=== PATIENT | male | born 1950 | race African-American/Black ===

== ENCOUNTER 2017-06-11 19:54 | Inpatient (IN) | payer MEDICAID, OTHER ==
[2017-06-11] MEDS ORDERED: ZOLPIDEM TARTRATE 5 MG TABLET PO ONE (21:16)
--- NOTE | 2017-06-11 22:51 | ER Document Report ---
ED Psych Disorder / Suicide - General Chief Complaint: Psych Problem Stated Complaint: OSMANY ROBLERO Time Seen by Provider: 06/11/17 20:56 Notes: Patient with a history of schizophrenia who was just here for a couple of days and discharge this afternoon. Family brings him back saying that he is a danger to them and himself. He will not take his medicines. He is combative and will not do what he supposed to do. This afternoon, they found him sitting in the bathtub with water and an electric heater also, patient is confused at times and will go wandering, out in the street and away from his house. Historically, this patient walked away from his house when he was 21 years of age and the family did not hear from him again until just 2 years ago. He was moved here from [place] and now lives with his sister. He is a patient at [facility], last visit was earlier this month. Patient's family is concerned that he may also be developing Alzheimer's. TRAVEL OUTSIDE OF THE [place] IN LAST 30 DAYS: No - Related Data Allergies/Adverse Reactions: No Known Allergies Allergy (Unverified 06/09/17 04:49) Past Medical History - Social History Smoking Status: Current Every Day Smoker Family History: Reviewed & Not Pertinent Patient has suicidal ideation: No Patient has homicidal ideation: No Psychiatric Medical History: Reports: Hx Schizophrenia Review of Systems - Review of Systems Notes: REVIEW OF SYSTEMS: Some answers provided by sister. CONSTITUTIONAL : Denies fever. EENT: Denies eye, ear, nose or mouth or throat pain or other symptoms. CARDIOVASCULAR: Denies chest pain. RESPIRATORY: Denies cough, chest congestion, or shortness of breath. GASTROINTESTINAL: Denies abdominal pain or nausea, vomiting, or diarrhea. GENITOURINARY: Denies difficulty or painful urinating, urinary frequency, blood in urine. MUSCULOSKELETAL: Denies back or neck pain. Denies joint pain or swelling. Patient fell off of a stool in his room here as he was being brought back to get into bed. He has no tenderness or swelling or any indications of a significant injury to the back and buttocks. Moves easily around in bed. SKIN: Denies rash or skin lesions. NEUROLOGICAL: Denies LOC or altered mental status. Denies headache. Denies sensory loss or motor deficits. ALL OTHER SYSTEMS REVIEWED AND NEGATIVE. -: Yes ROS unobtainable due to patient's medical condition Physical Exam - Vital signs Vitals: Temp Pulse Resp BP Pulse Ox 97.9 F 73 18 107/64 99 06/11/17 20:12 06/11/17 20:12 06/11/17 20:12 06/11/17 20:12 06/11/17 20:12 Interpretation: Normal - Notes Notes: PHYSICAL EXAMINATION: GENERAL: Well-appearing, in no acute distress. Vital signs are all normal. HEAD: Atraumatic, normocephalic. EYES: Pupils equal round and reactive to light, extraocular movements intact. ENT: oropharynx clear without exudates. Moist mucous membranes. NECK: Normal range of motion, supple. LUNGS: Breath sounds clear and equal bilaterally. HEART: Regular rate and rhythm without murmurs. ABDOMEN: Soft, nontender. No guarding or rebound. BACK: No tenderness throughout entire back. EXTREMITIES: Normal range of motion without pain. NEUROLOGICAL: normal gait. Normal sensory, motor, and reflex exams. Awake, alert, I do not think patient is oriented 3. Follows commands. Cooperative. Difficult to understand his speech, however. PSYCH: Normal mood, normal affect. SKIN: Warm, dry, no rashes. Course - Re-evaluation Re-evalutation: 06/11/17 22:54 Family says they cannot take care of this patient. I note in looking through the patient's chart that we wanted to get discharge planning involved in resources available to this patient, but apparently discharge planning was not available when the patient was discharged this afternoon. We are going to bed him down for the night and let mental health evaluate him in the morning to see if a reassessment and alternative new plan is necessary. 06/11/17 22:56 Labs were not redone because the patient had all of them done just 2 days ago and everything was essentially normal at that time. - Vital Signs Vital signs: Temp Pulse Resp BP Pulse Ox 97.9 F 73 18 107/64 99 06/11/17 20:12 06/11/17 20:12 06/11/17 20:12 06/11/17 20:12 06/11/17 20:12
[2017-06-12] MEDS ORDERED: TUBERCULIN,PURIF.PROT.DERIV. 5 TU/0.1 ML TEST 1 ML VIAL ID ONE (11:40)
[2017-06-12] MEDS: BUSPIRONE HCL 10 MG TABLET PO SCH ×2 (11:47→22:59)
--- NOTE | 2017-06-12 11:52 | ER Document Report ---
Doctor's Note Notes: 06/12/17 11:51 Patient has been seen and evaluated resting comfortably no acute distress. Laboratory values previous provider note and vital signs have been evaluated. Patient otherwise looks to be stable for disposition/transfer. Currently waiting for social work disposition. Patient otherwise has no concerns this morning and did review the chart last laboratory values were done approximately 72-96 hours ago we did restart patient's medication if patient still has more possibility checking out basic lab work and to obtain a Depakote level. A PPD was ordered.
[2017-06-12] MEDS ORDERED: DIVALPROEX SODIUM 125 MG CAP.SPRINK PO ONE (13:45)
--- NOTE | 2017-06-13 08:53 | ER Document Report ---
ED General - General Chief Complaint: Psych Problem Stated Complaint: OSMANY ROBLERO Time Seen by Provider: 06/11/17 20:56 TRAVEL OUTSIDE OF THE [place] IN LAST 30 DAYS: No - Related Data Allergies/Adverse Reactions: No Known Allergies Allergy (Unverified 06/09/17 04:49) Home Medications: Current Home Medications Buspirone HCl [Buspar 10 mg Tablet] 10 mg PO QHS 06/12/17 [History] Buspirone HCl [Buspar 5 mg Tablet] 5 mg PO QAM 06/12/17 [History] Divalproex Sodium [Depakote Sprinkle] 500 mg PO BID 06/12/17 [History] Past Medical History - Social History Smoking Status: Current Every Day Smoker Family History: Reviewed & Not Pertinent Patient has suicidal ideation: No Patient has homicidal ideation: No Renal/ Medical History: Denies: Hx Peritoneal Dialysis Psychiatric Medical History: Reports: Hx Schizophrenia Physical Exam - Vital signs Vitals: Temp Pulse Resp BP Pulse Ox 97.9 F 73 18 107/64 99 06/11/17 20:12 06/11/17 20:12 06/11/17 20:12 06/11/17 20:12 06/11/17 20:12 Course - Re-evaluation Re-evalutation: 06/13/17 08:53 Saw patient in morning rounds for psychiatric patients. Pending psych disposition. No overnight events. No nursing requests or urgent needs. On exam the patient is resting comfortably with no issues. - Vital Signs Vital signs: Temp Pulse Resp BP Pulse Ox 97.4 F 71 18 138/96 H 98 06/13/17 05:53 06/13/17 05:53 06/13/17 05:53 06/13/17 05:53 06/13/17 05:53
[2017-06-13] MEDS: BUSPIRONE HCL 10 MG TABLET PO SCH ×2 (09:57→22:00)
[2017-06-14] MEDS: BUSPIRONE HCL 10 MG TABLET PO SCH ×2 (08:00→21:33)
[2017-06-14] MEDS: DIVALPROEX SODIUM 125 MG CAP.SPRINK PO SCH ×2 (10:00→18:00)
--- NOTE | 2017-06-14 10:47 | ER Document Report ---
Doctor's Note Notes: 06/14/17 10:46 Social Rounds: Patient does not respond when I asked him a question. Awaiting long-term placement. Vital signs are normal. Appears to be stable. Azam Hamilton MD 06/14/17 10:48
[2017-06-15] MEDS: BUSPIRONE HCL 10 MG TABLET PO SCH ×2 (08:48→22:32)
--- NOTE | 2017-06-15 10:17 | ER Document Report ---
Doctor's Note Notes: 06/15/17 10:16 Rounds: Checking on this social admission for whom we are awaiting placement somewhere. Patient is without complaints. He is relatively uncommunicative. He has a PPD which was placed on his right forearm 3 days ago which is likely positive at about 15 mm. I will check and see if he needs a chest x-ray and order one if it has not been done recently. Vital signs are all normal. Patient appears medically stable for transfer or discharge. Azam Hamilton MD. 06/15/17 12:30 Chest x-ray was obtained and shows an incidental small lung nodule for which patient will be advised needs to be followed up. No acute processes and no evidence of tuberculosis. Azam Hamilton MD
--- NOTE | 2017-06-15 10:59 | RADIOLOGY REPORT (SQ) ---
EXAM DESCRIPTION: CHEST PA/LAT COMPLETED DATE/TIME: 06/15/2017 10:50 am REASON FOR STUDY: Positive PPD COMPARISON: None. EXAM PARAMETERS: NUMBER OF VIEWS: two views TECHNIQUE: Digital Frontal and Lateral radiographic views of the chest acquired. RADIATION DOSE: NA LIMITATIONS: Frontal film is slightly rotated towards the LINK orientation FINDINGS: LUNGS AND PLEURA: On the lateral view at the anterior clear space a 10 mm nodule is projec mary over the anterior heart border. This could be in the right middle lobe or lingula. No acute infiltrates. No pleural effusion. No pneumothorax. MEDIASTINUM AND HILAR STRUCTURES: No masses or contour abnormalities. HEART AND VASCULAR STRUCTURES: Heart normal size. No evidence for failure. BONES: No acute findings. HARDWARE: None in the chest. OTHER: No other significant finding. IMPRESSION: Incidental finding of a 10 mm nodule in the anterior clear space on lateral view No acute infiltrates. TECHNICAL DOCUMENTATION: JOB ID: [id number] [employer]- All Rights Reserved
[2017-06-15] MEDS: DIVALPROEX SODIUM 125 MG CAP.SPRINK PO SCH ×2 (11:15→18:54)
--- NOTE | 2017-06-16 09:30 | ER Document Report ---
ED General - General Chief Complaint: Psych Problem Stated Complaint: OSMANY ROBLERO Time Seen by Provider: 06/11/17 20:56 Notes: Patient still waiting on placement for long-term dementia/schizophrenia. By report from sister who is at the bedside he has not been taking his medications here. She is worried that he is dehydrated. She wants to know the results of the TB test. Wants to know what is going on. Patient is awake and alert. At his baseline mental status and not complaining of anything at this time. Follows basic commands. TRAVEL OUTSIDE OF THE [place] IN LAST 30 DAYS: No - Related Data Allergies/Adverse Reactions: No Known Allergies Allergy (Unverified 06/09/17 04:49) Home Medications: Current Home Medications Buspirone HCl [Buspar 10 mg Tablet] 10 mg PO QHS 06/12/17 [History] Buspirone HCl [Buspar 5 mg Tablet] 5 mg PO QAM 06/12/17 [History] Divalproex Sodium [Depakote Sprinkle] 500 mg PO BID 06/12/17 [History] Past Medical History - General Information source: Relative - Social History Smoking Status: Current Every Day Smoker Frequency of alcohol use: None Family History: Reviewed & Not Pertinent Patient has suicidal ideation: No Patient has homicidal ideation: No Renal/ Medical History: Denies: Hx Peritoneal Dialysis Psychiatric Medical History: Reports: Hx Schizophrenia Review of Systems - Review of Systems -: Yes ROS unobtainable due to patient's medical condition - Due to patient's dementia Physical Exam - Vital signs Vitals: Temp Pulse Resp BP Pulse Ox 97.9 F 73 18 107/64 99 06/11/17 20:12 06/11/17 20:12 06/11/17 20:12 06/11/17 20:12 06/11/17 20:12 - General General appearance: Alert - Respiratory Respiratory status: No respiratory distress Chest status: Nontender Breath sounds: Normal - Cardiovascular Rhythm: Regular Heart sounds: Normal auscultation - Extremities General upper extremity: Other - The right forearm demonstrates a positive TB test.. No: Normal inspection - Neurological Neuro grossly intact: Yes Orientation: Disoriented to person, Disoriented to place, Disoriented to time, Disoriented to events William Coma Scale Eye Opening: Spontaneous - Skin Skin Temperature: Warm - There is a positive TB test on the right upper extremity Course - Re-evaluation Re-evalutation: 06/16/17 09:29 With positive TB test. Has been down in the emergency department now here for several days. Chest x-ray ordered. Patient may meet criteria at this time for inpatient admission for further testing and beginning of treatment. 06/16/17 09:37 Chest x-ray shows an abnormality. Patient needs to be started on treatment. There is no way this patient is going to leave the ER to a prison without all of these needs met. It does not seem appropriate at all to keep him in the emergency department with multitude of internal medicine needs. I have consulted the hospitalist for admission at this time. Patient needs to be I. And a reverse isolation room until treatment started. II. Patient needs to be hydrated and monitored at this time. III. Patient needs to be started on injectable schizophrenic medications as he is refusing to take oral medications and this has not been done. If all these needs can be met it will be medicine and patient not in the ER. 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
[2017-06-16] MEDS: BUSPIRONE HCL 10 MG TABLET PO SCH ×2 (12:03→23:35)
[2017-06-16] MEDS ORDERED: ENOXAPARIN SODIUM INJ 40 MG/0.4 ML DISP.SYRIN SUBCUT ONE (14:30)
--- NOTE | 2017-06-16 16:08 | PDOC H&P ---
History of Present Illness Admission Date/PCP: 06/16/17 11:14 Patient complains of: Patient brought in for altered mental status or medications noncompliance. History of Present Illness: SUZANNE PECK is a 66 year old male with history of dementia and schizophrenia. Patient with recurrent presentation to the ED after he was brought in by the family for medications noncompliance. Family reported that patient has been combative and not doing what he was supposed to do. Patient confused at times. On the afternoon of current presentation to the ED, 06/11/17, they found him sitting in the bathtub with the water and electric heater. Patient has been in the ED since 06/11/17 waiting for placement. He apparently had PPD done and this was positive. Chest x-ray on 06/15/17 revealed 10 mm in the anterior clear space laterally. Otherwise no acute infiltrate. Urinalysis from 07/10/[address] scan of the head was negative. Patient does continue to refuse to take meds. He has been referred to the hospitalist service for admission to isolation for workup for TB and adjust patient medications for altered mental status. On exam patient, he barely answers questions. He is a poor historian. History obtained from review of medical records and discussion with ED physician. He reports intermittent cough. Past Medical History Neurological Medical History: Reports: Other - Dementia Psychiatric Medical History: Reports: Other - Schizophrenia Social History Smoking Status: Former Smoker Family History Family History: unknown Parental Family History Reviewed: Yes - Unknown Children Family History Reviewed: Unknown Sibling(s) Family History Reviewed.: Unknown Medication/Allergy Home Medications: Buspirone HCl [Buspar 10 mg Tablet] 10 mg PO QHS 06/12/17 Buspirone HCl [Buspar 5 mg Tablet] 5 mg PO QAM 06/12/17 Divalproex Sodium [Depakote Sprinkle] 500 mg PO BID 06/12/17 Allergies/Adverse Reactions: No Known Allergies Allergy (Unverified 06/09/17 04:49) Review of Systems Review of Systems: Denies fever, chills, chest pain, palpitations. Has intermittent cough. Does not always answer questions, so review of system difficult to obtain fully. Physical Exam Vital Signs: Temp Pulse Resp BP Pulse Ox 97.8 F 86 16 116/84 99 06/16/17 13:53 06/16/17 13:53 06/16/17 13:53 06/16/17 13:53 06/16/17 13:53 Exam: GENERAL: Well-developed, in no acute distress. . HEAD: Atraumatic, normocephalic. Oral mucosa clear, mildly dry. No exudate. EYES: Pupils equal round and reactive to light, extraocular movements intact. NECK: Normal range of motion, supple. LUNGS: Breath sounds clear and equal bilaterally. HEART: Regular rate and rhythm without murmurs. ABDOMEN: Soft, nontender. No guarding or rebound. BACK: No tenderness throughout entire back. EXTREMITIES: Normal range of motion without pain. NEUROLOGICAL: normal gait. Normal sensory, motor, and reflex exams. Awake, alert, seems oriented to name only. Follows simple commands. However, difficult to understand his speech, however. PSYCH: Some flattening of affect. SKIN: Warm, dry, no rashes. Results Laboratory Results: CBC from 06/09/17 revealed normal white blood cells 5.5 hemoglobin 13.7 hematocrit 40.7, platelets 193.Zamzam chemistry with slight hyponatremia with sodium 147.2. BUN 15 creatinine 1.32. Impressions: Chest X-Ray 06/15/17 10:19 IMPRESSION: Incidental finding of a 10 mm nodule in the anterior clear space on lateral view No acute infiltrates. Assessment & Plan - Diagnosis (1) Altered mental state Qualifiers: Altered mental status type: unspecified Qualified Code(s): R41.82 - Altered mental status, unspecified Is this a current diagnosis for this admission?: Yes Plan: May be secondary to dementia and/or schizophrenia in the setting of medications noncompliance. Urinalysis 06/09/17 unremarkable. Chest x-ray from 06/15/17 shows no acute infiltrate although pulmonary nodule present. Concern is also that patient may have TB. He appears thin but difficult to obtain history of weight loss. Will workup for TB and have psych evaluate for possible treatment with long-acting injectable psych medications. (2) Tuberculin skin test (TST) positive Is this a current diagnosis for this admission?: Yes Plan: We will check a QuantiFERON level as part of workup for possible active TB. Will also obtain chest CT to better evaluate pulmonary nodule. (3) Abnormal chest x-ray Is this a current diagnosis for this admission?: Yes Plan: Admitted to isolation room. Workup for active TB (4) Dementia Qualifiers: Dementia type: unspecified type Dementia behavioral disturbance: with behavioral disturbance Qualified Code(s): F03.91 - Unspecified dementia with behavioral disturbance Is this a current diagnosis for this admission?: Yes Plan: Check vitamin B12, TSH to rule out reversible causes of dementia. Monitor. (5) Schizophrenia Qualifiers: Schizophrenia type: unspecified Qualified Code(s): F20.9 - Schizophrenia, unspecified Plan: Patient reveals him to take his medications orally. Will request psych to evaluate for possible treatment with long-acting injectable psych medications. - Time Time Spent: Greater than 70 Minutes - Greater than 50% counseling and coordinating care. - Inpatient Certification Based on my medical assessment, after consideration of the patient's comorbidities, presenting symptoms, or acuity I expect that the services needed warrant INPATIENT care.: Yes I certify that my determination is in accordance with my understanding of Medicare's requirements for reasonable and necessary INPATIENT services [42 CFR 412.3e].: Yes Medical Necessity: Significant Comorbidiites Make Outpatient Treatment Too Risky
[2017-06-16] MEDS: GUAIFENESIN SYRP 200 MG/10 ML UDC PO SCH (23:59)
[2017-06-16] MEDS: DIVALPROEX SODIUM 125 MG CAP.SPRINK PO SCH (23:59)
[2017-06-17] MEDS: ALBUTEROL SULFATE 0.083% NEB 2.5 MG/3 ML AMPUL NEB PRN ×3 (00:31→20:23)
[2017-06-17] MEDS: GUAIFENESIN SYRP 200 MG/10 ML UDC PO SCH ×5 (05:38→21:48)
[2017-06-17] MEDS ORDERED: (PENDING PHARMACY ID) (Buspirone Hcl [Buspar 5 Mg Tablet] 5 MG) PO SCH (08:00)
[2017-06-17] MEDS: ACETYLCYSTEINE 20% SOLN 800 MG/4 ML VIAL.NEB NEB SCH ×2 (08:54→20:38)
[2017-06-17] MEDS: DIVALPROEX SODIUM 125 MG CAP.SPRINK PO SCH ×2 (10:03→21:48)
[2017-06-17] MEDS: ENOXAPARIN SODIUM INJ 40 MG/0.4 ML DISP.SYRIN SUBCUT SCH (10:03)
[2017-06-17] MEDS: BUSPIRONE HCL 10 MG TABLET PO SCH ×2 (10:03→21:48)
[2017-06-17 11:47] LABS: ABSOLUTE EOSINOPHILS # (AUTO) 0.1 10^3/uL (0.0-0.6); ABSOLUTE LYMPHOCYTES (AUTO) 1.1 10^3/uL (0.5-4.7); ABSOLUTE MONOCYTES (AUTO) 0.5 10^3/uL (0.1-1.4); ABSOLUTE NEUT (AUTO) 2.9 10^3/uL (1.7-8.2); EOSINOPHILS % (AUTO) 1.9 % (0-6); HEMATOCRIT 43.3 % (37.9-51.0); HEMOGLOBIN 14.5 g/dL (13.5-17.0); HGB HCT DIFFERENCE 0.2; MEAN CORPUSCULAR HEMOGLOBIN 31.8 pg (27.0-33.4); MEAN CORPUSCULAR HGB CONC 33.5 g/dL (32.0-36.0); MEAN CORPUSCULAR VOLUME 95 fl (80-97); MONOCYTES % (AUTO) 10.5 % (3-13); RED BLOOD COUNT 4.56 10^6/uL (4.35-5.55); RED CELL DISTRIBUTION WIDTH 12.7 % (11.5-14.0); SEGMENTED NEUTROPHILS % (AUTO) 62.6 % (42-78); WHITE BLOOD COUNT 4.6 10^3/uL (4.0-10.5)
[2017-06-17 12:20] LABS: ALANINE AMINOTRANSFERASE 25 U/L (21-72); ALBUMIN 4.4 g/dL (3.5-5.0); ALKALINE PHOSPHATASE 72 U/L (38-126); ANION GAP 16 (5-19); ASPARTATE AMINO TRANSFERASE 13 U/L (17-59); BILIRUBIN,DIRECT 0.5 mg/dL (0.0-0.4); BILIRUBIN,TOTAL 0.6 mg/dL (0.2-1.3); BLOOD UREA NITROGEN 23 mg/dL (7-20); CALCIUM 10.6 mg/dL (8.4-10.2); CARBON DIOXIDE 29 mmol/L (22-30); CHLORIDE 103 mmol/L (98-107); CREATININE RESULT 1.43 mg/dL (0.52-1.25); GLUCOSE 103 mg/dL (75-110); POTASSIUM 4.2 mmol/L (3.6-5.0)
--- NOTE | 2017-06-17 17:55 | PDOC PROGRESS REPORT ---
Subjective Progress Note for:: 06/17/17 Subjective:: No complaints. No compliant with medications today. No fever or chills, no chest pain or shortness of breath or palpitations. Physical Exam Vital Signs: Temp Pulse Resp BP Pulse Ox 97.9 F 83 18 101/60 100 06/17/17 17:26 06/17/17 17:26 06/17/17 17:26 06/17/17 17:26 06/17/17 17:26 Intake & Output 06/16/17 06/17/17 06/18/17 06:59 06:59 06:59 Intake Total 523 100 Output Total 0 Balance 523 100 Weight 44 kg Exam: GENERAL: Thin male, no acute distress CARDIOVASCULAR: RRR, normal S1-S2 LUNGS: CTA bilaterally ABDOMEN: Soft, NT, NL bowel sounds EXTREMITIES: No edema, clubbing, cyanosis NEUROLOGICAL: Alert Results Laboratory Results: 06/17/17 11:18 06/17/17 11:18 06/17/17 06/17/17 06/17/17 11:18 11:18 11:18 WBC 4.6 RBC 4.56 Hgb 14.5 Hct 43.3 MCV 95 MCH 31.8 MCHC 33.5 RDW 12.7 Plt Count 193 Seg Neutrophils % 62.6 Lymphocytes % 24.0 Monocytes % 10.5 Eosinophils % 1.9 Basophils % 1.0 Absolute Neutrophils 2.9 Absolute Lymphocytes 1.1 Absolute Monocytes 0.5 Absolute Eosinophils 0.1 Absolute Basophils 0.0 Sodium 148.0 H Potassium 4.2 Chloride 103 Carbon Dioxide 29 Anion Gap 16 BUN 23 H Creatinine 1.43 H Est GFR ( Amer) > 60 Est GFR (Non-Af Amer) 50 L Glucose 103 Calcium 10.6 H Total Bilirubin 0.6 AST 13 L ALT 25 Alkaline Phosphatase 72 Ammonia < 8.7 L Total Protein 7.0 Albumin 4.4 Vitamin B12 818.0 TSH 06/17/17 11:18 WBC RBC Hgb Hct MCV MCH MCHC RDW Plt Count Seg Neutrophils % Lymphocytes % Monocytes % Eosinophils % Basophils % Absolute Neutrophils Absolute Lymphocytes Absolute Monocytes Absolute Eosinophils Absolute Basophils Sodium Potassium Chloride Carbon Dioxide Anion Gap BUN Creatinine Est GFR ( Amer) Est GFR (Non-Af Amer) Glucose Calcium Total Bilirubin AST ALT Alkaline Phosphatase Ammonia Total Protein Albumin Vitamin B12 TSH 0.32 L Impressions: Chest X-Ray 06/15/17 10:19 IMPRESSION: Incidental finding of a 10 mm nodule in the anterior clear space on lateral view No acute infiltrates. Assessment & Plan - Diagnosis (1) Altered mental state Qualifiers: Altered mental status type: unspecified Qualified Code(s): R41.82 - Altered mental status, unspecified Is this a current diagnosis for this admission?: Yes Plan: May be secondary to dementia and/or schizophrenia in the setting of medications noncompliance. Urinalysis 06/09/17 unremarkable. Chest x-ray from 06/15/17 shows no acute infiltrate although pulmonary nodule present. Concern is also that patient may have TB. He appears thin but difficult to obtain history of weight loss. Will workup for TB in progress. Patient more compounded medication today. Suggest having psych evaluate for possible treatment with long-acting injectable psych medications if any problems with noncompliance with psych meds.. 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 Creatinine slightly was from baseline today. Will hydrate with gentle IV fluid. Recheck Chem-7 in a.m. If creatinine better suggest ordering chest CT with contrast to better evaluate pulmonary nodule. (3) Abnormal chest x-ray Is this a current diagnosis for this admission?: Yes Plan: Admitted to isolation room. Workup for active TB as above. (4) Dementia Qualifiers: Dementia type: unspecified type Dementia behavioral disturbance: with behavioral disturbance Qualified Code(s): F03.91 - Unspecified dementia with behavioral disturbance Is this a current diagnosis for this admission?: Yes Plan: Vitamin B12 murmur, TSH decreased. We will check free T4 and free T3. Continue to monitor patient. (5) Schizophrenia Qualifiers: Schizophrenia type: unspecified Qualified Code(s): F20.9 - Schizophrenia, unspecified Plan: Patient was not compliant with oral medication. He has been more compliant today. Suggest psych evaluation for possible treatment with long-acting injectable psych medications if continued problems with patient refusing to take his medications. (6) Dehydration Plan: Suspect dehydration. Patient has not been eating and drinking much. He also has slight hyponatremia and slight worsening renal function. Will treat with D5 i/2 normal saline at 100 mL/h. Follow-up CBC and Chem-7 in a.m.
[2017-06-17] MEDS ORDERED: DEXTROSE 5%-1/2 NORMAL SALINE 1,000 ML IV PRN (18:00)
[2017-06-17 19:53] LABS: ABSOLUTE EOSINOPHILS # (AUTO) 0.1 10^3/uL (0.0-0.6); ABSOLUTE LYMPHOCYTES (AUTO) 1.3 10^3/uL (0.5-4.7); ABSOLUTE MONOCYTES (AUTO) 0.4 10^3/uL (0.1-1.4); ABSOLUTE NEUT (AUTO) 3.4 10^3/uL (1.7-8.2); BASOPHILS % (AUTO) 0.9 % (0-2); EOSINOPHILS % (AUTO) 1.3 % (0-6); HEMATOCRIT 45.3 % (37.9-51.0); HEMOGLOBIN 15.3 g/dL (13.5-17.0); HGB HCT DIFFERENCE 0.6; LYMPHOCYTES % (AUTO) 24.2 % (13-45); MEAN CORPUSCULAR HEMOGLOBIN 31.9 pg (27.0-33.4); MEAN CORPUSCULAR HGB CONC 33.7 g/dL (32.0-36.0); MEAN CORPUSCULAR VOLUME 95 fl (80-97); MONOCYTES % (AUTO) 8.2 % (3-13); RED BLOOD COUNT 4.79 10^6/uL (4.35-5.55); RED CELL DISTRIBUTION WIDTH 12.6 % (11.5-14.0); SEGMENTED NEUTROPHILS % (AUTO) 65.4 % (42-78); WHITE BLOOD COUNT 5.2 10^3/uL (4.0-10.5)
[2017-06-17 20:10] LABS: ANION GAP 18 (5-19); BLOOD UREA NITROGEN 24 mg/dL (7-20); CARBON DIOXIDE 28 mmol/L (22-30); CHLORIDE 103 mmol/L (98-107); CREATININE RESULT 1.45 mg/dL (0.52-1.25); GLUCOSE 100 mg/dL (75-110); POTASSIUM 4.6 mmol/L (3.6-5.0); SODIUM 148.9 mmol/L (137-145)
[2017-06-18] MEDS: GUAIFENESIN SYRP 200 MG/10 ML UDC PO SCH ×6 (02:32→22:38)
[2017-06-18] MEDS ORDERED: NORMAL SALINE 1000 ML 1,000 ML IV PRN (08:05)
[2017-06-18] MEDS: ACETYLCYSTEINE 20% SOLN 800 MG/4 ML VIAL.NEB NEB SCH ×2 (08:12→20:19)
[2017-06-18] MEDS: ALBUTEROL SULFATE 0.083% NEB 2.5 MG/3 ML AMPUL NEB PRN ×2 (08:12→20:19)
[2017-06-18] MEDS: ENOXAPARIN SODIUM INJ 40 MG/0.4 ML DISP.SYRIN SUBCUT SCH (11:21)
[2017-06-18] MEDS: BUSPIRONE HCL 10 MG TABLET PO SCH (11:21)
[2017-06-18] MEDS: DIVALPROEX SODIUM 125 MG CAP.SPRINK PO SCH (11:21)
[2017-06-18] MEDS ORDERED: HALOPERIDOL 5 MG TABLET PO PRN (13:01)
--- NOTE | 2017-06-18 13:01 | PDOC PROGRESS REPORT ---
Subjective Progress Note for:: 06/18/17 Physical Exam Vital Signs: Temp Pulse Resp BP Pulse Ox 97.4 F 85 20 103/77 100 06/18/17 07:56 06/18/17 08:15 06/18/17 08:15 06/18/17 07:56 06/18/17 08:15 Intake & Output 06/17/17 06/18/17 06/19/17 06:59 06:59 06:59 Intake Total 523 250 Output Total 0 Balance 523 250 Weight 44 kg 42.8 kg General appearance: PRESENT: no acute distress Eye exam: PRESENT: conjunctiva pink. ABSENT: scleral icterus Mouth exam: PRESENT: moist, tongue midline Neck exam: ABSENT: JVD Respiratory exam: PRESENT: clear to auscultation veronica. ABSENT: rales, rhonchi, wheezes Cardiovascular exam: PRESENT: RRR. ABSENT: diastolic murmur, rubs, systolic murmur GI/Abdominal exam: PRESENT: normal bowel sounds, soft. ABSENT: distended, guarding, mass, organolmegaly, rebound, tenderness Extremities exam: ABSENT: calf tenderness, clubbing, pedal edema Neurological exam: PRESENT: altered, CN II-XII grossly intact. ABSENT: motor sensory deficit Psychiatric exam: PRESENT: flat affect Skin exam: PRESENT: dry, intact, warm. ABSENT: cyanosis, rash Results Laboratory Results: 06/17/17 19:30 06/17/17 19:30 06/17/17 06/17/17 06/17/17 11:18 19:30 19:30 WBC 5.2 RBC 4.79 Hgb 15.3 Hct 45.3 MCV 95 MCH 31.9 MCHC 33.7 RDW 12.6 Plt Count 200 Seg Neutrophils % 65.4 Lymphocytes % 24.2 Monocytes % 8.2 Eosinophils % 1.3 Basophils % 0.9 Absolute Neutrophils 3.4 Absolute Lymphocytes 1.3 Absolute Monocytes 0.4 Absolute Eosinophils 0.1 Absolute Basophils 0.0 Sodium 148.0 H 148.9 H Potassium 4.2 4.6 Chloride 103 103 Carbon Dioxide 29 28 Anion Gap 16 18 BUN 23 H 24 H Creatinine 1.43 H 1.45 H Est GFR ( Amer) > 60 59 L Est GFR (Non-Af Amer) 50 L 49 L Glucose 103 100 Calcium 10.6 H 11.0 H Total Bilirubin 0.6 AST 13 L ALT 25 Alkaline Phosphatase 72 Total Protein 7.0 Albumin 4.4 Vitamin B12 818.0 Impressions: Chest X-Ray 06/15/17 10:19 IMPRESSION: Incidental finding of a 10 mm nodule in the anterior clear space on lateral view No acute infiltrates. Assessment & Plan - Diagnosis (1) Altered mental state Qualifiers: Altered mental status type: unspecified Qualified Code(s): R41.82 - Altered mental status, unspecified Is this a current diagnosis for this admission?: Yes Plan: The patient has diagnosis of schizophrenia and dementia. The sister however relates that he has been living in [place] for the last [address] initially was negative. we will try to get an MRI. The patient has a significant amount of weight loss. (2) Abnormal chest x-ray Is this a current diagnosis for this admission?: Yes Plan: Patient has a positive PPD and an abnormal chest x-ray. Waiting on sputum results. (3) Dementia Qualifiers: Dementia type: unspecified type Dementia behavioral disturbance: with behavioral disturbance Qualified Code(s): F03.91 - Unspecified dementia with behavioral disturbance Is this a current diagnosis for this admission?: Yes Plan: Is not clear how this diagnosis was made. Will give Haldol as needed. 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 Awaiting on sputum cultures. (5) Schizophrenia Qualifiers: Schizophrenia type: unspecified Qualified Code(s): F20.9 - Schizophrenia, unspecified Is this a current diagnosis for this admission?: Yes Plan: We will give Haldol as needed. - Time Time Spent with patient: 25-34 minutes - Inpatient Certification Medical Necessity: Need Close Monitoring Due to Risk of Patient Decompensation
--- NOTE | 2017-06-18 13:25 | RADIOLOGY REPORT (SQ) ---
EXAM DESCRIPTION: MRI HEAD WITHOUT COMPLETED DATE/TIME: 06/18/2017 1:07 pm REASON FOR STUDY: altered mental status F20.9 SCHIZOPHRENIA, UNSPECIFIED F20.9 SCHIZOPHRENIA, UNSP ECIFIED COMPARISON: CT brain 06/09/2017 TECHNIQUE: Multiplanar imaging includes non-contrasted T1, T2, FLAIR, and diffusion with ADC map seq uences. Images stored on PACS. LIMITATIONS: Mild motion artifact, rapid sequences used FINDINGS: ANATOMY: No developmental anomalies. Normal vascular flow voids. Pituitary fossa normal. CSF SPACES: Normal in size and contour. No hemorrhage. CEREBRUM: Sulci and gyri normal in size and contour. Normal white matter signal on FLAIR imaging. No evidence of hemorrhage, mass, or extraaxial fluid collection. POSTERIOR FOSSA: No signal alteration. No hemorrhage. No edema, masses or mass effect. Internal ke tory canals, cerebello-pontine angles, mastoids normal. DIFFUSION IMAGING: Negative for acute or sub-acute infarction. ORBITS: No masses. Post left cataract surgery. PARANASAL SINUSES: No fluid levels. Mucosa normal. OTHER: No other significant finding. IMPRESSION: Motion artifact. No acute changes EVIDENCE OF ACUTE STROKE: NO. TECHNICAL DOCUMENTATION: JOB ID: [id number] [employer]- All Rights Reserved
[2017-06-18 13:38] LABS: FOL RBC HEMATOCRIT 41.8 % (37.5-51.0); FOLATE HEMOLYSATE 417.6 ng/mL (Not Estab.)
[2017-06-19] MEDS: BUSPIRONE HCL 10 MG TABLET PO SCH ×3 (01:29→21:37)
[2017-06-19] MEDS: DIVALPROEX SODIUM 125 MG CAP.SPRINK PO SCH ×3 (01:29→21:42)
[2017-06-19] MEDS: GUAIFENESIN SYRP 200 MG/10 ML UDC PO SCH ×7 (01:29→21:54)
[2017-06-19 07:03] LABS: ABSOLUTE BASOPHILS # (AUTO) 0.1 10^3/uL (0.0-0.2); ABSOLUTE EOSINOPHILS # (AUTO) 0.1 10^3/uL (0.0-0.6); ABSOLUTE LYMPHOCYTES (AUTO) 1.5 10^3/uL (0.5-4.7); ABSOLUTE MONOCYTES (AUTO) 0.6 10^3/uL (0.1-1.4); ABSOLUTE NEUT (AUTO) 3.6 10^3/uL (1.7-8.2); EOSINOPHILS % (AUTO) 1.7 % (0-6); HEMATOCRIT 47.8 % (37.9-51.0); HEMOGLOBIN 16.3 g/dL (13.5-17.0); HGB HCT DIFFERENCE 1.1; LYMPHOCYTES % (AUTO) 25.5 % (13-45); MEAN CORPUSCULAR HEMOGLOBIN 32.2 pg (27.0-33.4); MEAN CORPUSCULAR HGB CONC 34.2 g/dL (32.0-36.0); MEAN CORPUSCULAR VOLUME 94 fl (80-97); MONOCYTES % (AUTO) 9.8 % (3-13); RED BLOOD COUNT 5.07 10^6/uL (4.35-5.55); RED CELL DISTRIBUTION WIDTH 12.7 % (11.5-14.0); WHITE BLOOD COUNT 5.7 10^3/uL (4.0-10.5)
[2017-06-19 07:07] LABS: BLOOD UREA NITROGEN 31 mg/dL (7-20); CALCIUM 11.2 mg/dL (8.4-10.2); CREATININE RESULT 1.52 mg/dL (0.52-1.25); GLUCOSE 79 mg/dL (75-110); POTASSIUM 4.6 mmol/L (3.6-5.0)
[2017-06-19 07:18] LABS: CARBON DIOXIDE 24 mmol/L (22-30); CHLORIDE 105 mmol/L (98-107)
[2017-06-19 07:21] LABS: ANION GAP 23 (5-19)
[2017-06-19 08:23] LABS: FOLATE RBC 3 999 ng/mL (>498)
[2017-06-19] MEDS: ALBUTEROL SULFATE 0.083% NEB 2.5 MG/3 ML AMPUL NEB PRN ×2 (08:48→20:27)
[2017-06-19] MEDS: ACETYLCYSTEINE 20% SOLN 800 MG/4 ML VIAL.NEB NEB SCH ×2 (08:49→20:27)
[2017-06-19] MEDS: ENOXAPARIN SODIUM INJ 40 MG/0.4 ML DISP.SYRIN SUBCUT SCH (11:23)
--- NOTE | 2017-06-19 12:44 | PDOC PROGRESS REPORT ---
Subjective Progress Note for:: 06/19/17 Subjective:: Patient will not answer questions for me. Physical Exam Vital Signs: Temp Pulse Resp BP Pulse Ox 97.2 F 83 18 106/66 100 06/19/17 09:02 06/19/17 09:02 06/19/17 09:02 06/19/17 09:02 06/19/17 09:02 Intake & Output 06/18/17 06/19/17 06/20/17 06:59 06:59 06:59 Intake Total 250 874 Output Total 0 Balance 250 874 Weight 42.8 kg 42.6 kg General appearance: PRESENT: no acute distress Eye exam: PRESENT: conjunctiva pink. ABSENT: scleral icterus Mouth exam: PRESENT: moist, tongue midline Neck exam: ABSENT: JVD Respiratory exam: PRESENT: clear to auscultation veronica. ABSENT: rales, rhonchi, wheezes Cardiovascular exam: PRESENT: RRR. ABSENT: diastolic murmur, rubs, systolic murmur GI/Abdominal exam: PRESENT: normal bowel sounds, soft. ABSENT: distended, guarding, mass, organolmegaly, rebound, tenderness Extremities exam: ABSENT: calf tenderness, clubbing, pedal edema Neurological exam: PRESENT: altered Psychiatric exam: PRESENT: flat affect Skin exam: PRESENT: dry, intact, warm. ABSENT: cyanosis, rash Results Laboratory Results: 06/19/17 06:08 06/19/17 06:08 06/19/17 06/19/17 06:08 06:08 WBC 5.7 RBC 5.07 Hgb 16.3 Hct 47.8 MCV 94 MCH 32.2 MCHC 34.2 RDW 12.7 Plt Count 208 Seg Neutrophils % 62.0 Lymphocytes % 25.5 Monocytes % 9.8 Eosinophils % 1.7 Basophils % 1.0 Absolute Neutrophils 3.6 Absolute Lymphocytes 1.5 Absolute Monocytes 0.6 Absolute Eosinophils 0.1 Absolute Basophils 0.1 Sodium 152.0 H Potassium 4.6 Chloride 105 Carbon Dioxide 24 Anion Gap 23 H BUN 31 H Creatinine 1.52 H Est GFR ( Amer) 56 L Est GFR (Non-Af Amer) 46 L Glucose 79 Calcium 11.2 H Impressions: Chest X-Ray 06/15/17 10:19 IMPRESSION: Incidental finding of a 10 mm nodule in the anterior clear space on lateral view No acute infiltrates. Head MRI 06/18/17 00:00 IMPRESSION: Motion artifact. No acute changes EVIDENCE OF ACUTE STROKE: NO. Assessment & Plan - Diagnosis (1) Altered mental state Qualifiers: Altered mental status type: unspecified Qualified Code(s): R41.82 - Altered mental status, unspecified Is this a current diagnosis for this admission?: Yes Plan: The patient has diagnosis of schizophrenia and dementia. The sister however relates that he has been living in [place] for the last [address] initially was negative. MRI obtained yesterday showed no abnormalities. (2) Abnormal chest x-ray Is this a current diagnosis for this admission?: Yes Plan: Patient has a positive PPD and an abnormal chest x-ray. Waiting on sputum results. (3) Dementia Qualifiers: Dementia type: unspecified type Dementia behavioral disturbance: with behavioral disturbance Qualified Code(s): F03.91 - Unspecified dementia with behavioral disturbance Is this a current diagnosis for this admission?: Yes Plan: Is not clear how this diagnosis was made. Will give Haldol as needed. 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 Awaiting on sputum cultures. (5) Schizophrenia Qualifiers: Schizophrenia type: unspecified Qualified Code(s): F20.9 - Schizophrenia, unspecified Is this a current diagnosis for this admission?: Yes Plan: We will give Haldol as needed. - Time Time Spent with patient: 25-34 minutes - Inpatient Certification Medical Necessity: Need Close Monitoring Due to Risk of Patient Decompensation
[2017-06-19 21:08] LABS: QUANTIFERON TB ANTIGEN VALUE 0.05 IU/mL (.); QUANTIFERON TB NIL VALUE 0.02 IU/mL (.)
[2017-06-20] MEDS: GUAIFENESIN SYRP 200 MG/10 ML UDC PO SCH ×5 (04:31→20:57)
[2017-06-20 07:23] LABS: BLOOD UREA NITROGEN 42 mg/dL (7-20); CALCIUM 11.2 mg/dL (8.4-10.2); CREATININE RESULT 1.91 mg/dL (0.52-1.25); GLUCOSE 88 mg/dL (75-110); POTASSIUM 4.8 mmol/L (3.6-5.0)
[2017-06-20 07:34] LABS: CARBON DIOXIDE 24 mmol/L (22-30); CHLORIDE 105 mmol/L (98-107); SODIUM 150.9 mmol/L (137-145)
[2017-06-20 07:39] LABS: ANION GAP 22 (5-19)
[2017-06-20] MEDS: ACETYLCYSTEINE 20% SOLN 800 MG/4 ML VIAL.NEB NEB SCH ×2 (08:44→20:42)
[2017-06-20] MEDS: ALBUTEROL SULFATE 0.083% NEB 2.5 MG/3 ML AMPUL NEB PRN ×2 (08:44→20:42)
[2017-06-20] MEDS: ENOXAPARIN SODIUM INJ 40 MG/0.4 ML DISP.SYRIN SUBCUT SCH (09:59)
[2017-06-20] MEDS: BUSPIRONE HCL 10 MG TABLET PO SCH (10:01)
[2017-06-20] MEDS: DIVALPROEX SODIUM 125 MG CAP.SPRINK PO SCH (10:04)
--- NOTE | 2017-06-20 12:04 | PDOC PROGRESS REPORT ---
Subjective Progress Note for:: 06/20/17 Subjective:: Patient will not answer questions for me. Physical Exam Vital Signs: Temp Pulse Resp BP Pulse Ox 97.9 F 89 14 111/90 H 98 06/20/17 08:02 06/20/17 08:44 06/20/17 08:44 06/20/17 08:02 06/20/17 08:44 Intake & Output 06/19/17 06/20/17 06/21/17 06:59 06:59 06:59 Intake Total 874 720 Balance 874 720 Weight 42.6 kg 40.7 kg General appearance: PRESENT: no acute distress Eye exam: PRESENT: conjunctiva pink. ABSENT: scleral icterus Mouth exam: PRESENT: moist, tongue midline Neck exam: ABSENT: JVD Respiratory exam: PRESENT: clear to auscultation veronica. ABSENT: rales, rhonchi, wheezes Cardiovascular exam: PRESENT: RRR. ABSENT: diastolic murmur, rubs, systolic murmur GI/Abdominal exam: PRESENT: normal bowel sounds, soft. ABSENT: distended, guarding, mass, organolmegaly, rebound, tenderness Extremities exam: ABSENT: calf tenderness, clubbing, pedal edema Neurological exam: PRESENT: awake. ABSENT: oriented to person, oriented to place, oriented to time, oriented to situation Psychiatric exam: PRESENT: flat affect Skin exam: PRESENT: dry, intact, warm. ABSENT: cyanosis, rash Results Laboratory Results: 06/19/17 06:08 06/20/17 06:05 06/20/17 06:05 Sodium 150.9 H Potassium 4.8 Chloride 105 Carbon Dioxide 24 Anion Gap 22 H BUN 42 H Creatinine 1.91 H Est GFR ( Amer) 43 L Est GFR (Non-Af Amer) 36 L Glucose 88 Calcium 11.2 H Impressions: Chest X-Ray 06/15/17 10:19 IMPRESSION: Incidental finding of a 10 mm nodule in the anterior clear space on lateral view No acute infiltrates. Head MRI 06/18/17 00:00 IMPRESSION: Motion artifact. No acute changes EVIDENCE OF ACUTE STROKE: NO. Assessment & Plan - Diagnosis (1) Altered mental state Qualifiers: Altered mental status type: unspecified Qualified Code(s): R41.82 - Altered mental status, unspecified Is this a current diagnosis for this admission?: Yes Plan: The patient has diagnosis of schizophrenia and dementia. The sister however relates that he has been living in [place] for the last [address] initially was negative. MRI showed no abnormalities. (2) Abnormal chest x-ray Is this a current diagnosis for this admission?: Yes Plan: Patient has a positive PPD and an abnormal chest x-ray. Waiting on sputum results. (3) Dementia Qualifiers: Dementia type: unspecified type Dementia behavioral disturbance: with behavioral disturbance Qualified Code(s): F03.91 - Unspecified dementia with behavioral disturbance Is this a current diagnosis for this admission?: Yes Plan: Is not clear how this diagnosis was made. Will give Haldol as needed. 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 Awaiting on sputum cultures. (5) Schizophrenia Qualifiers: Schizophrenia type: unspecified Qualified Code(s): F20.9 - Schizophrenia, unspecified Is this a current diagnosis for this admission?: Yes Plan: We will give Haldol as needed. - Time Time Spent with patient: 15-24 minutes - Inpatient Certification Medical Necessity: Need Close Monitoring Due to Risk of Patient Decompensation
[2017-06-21] MEDS: DIVALPROEX SODIUM 125 MG CAP.SPRINK PO SCH ×3 (00:34→21:35)
[2017-06-21] MEDS: BUSPIRONE HCL 10 MG TABLET PO SCH ×3 (00:37→21:35)
[2017-06-21] MEDS: GUAIFENESIN SYRP 200 MG/10 ML UDC PO SCH ×7 (00:52→23:24)
[2017-06-21] MEDS: ACETYLCYSTEINE 20% SOLN 800 MG/4 ML VIAL.NEB NEB SCH ×2 (07:55→20:25)
[2017-06-21] MEDS: ALBUTEROL SULFATE 0.083% NEB 2.5 MG/3 ML AMPUL NEB PRN ×2 (07:55→20:25)
--- NOTE | 2017-06-21 09:54 | PDOC PROGRESS REPORT ---
Subjective Progress Note for:: 06/21/17 Subjective:: Patient will not answer questions for me. His TB Gold test came back negative. he can be removed from droplet precautions. Physical Exam Vital Signs: Temp Pulse Resp BP Pulse Ox 97.7 F 92 18 114/83 97 06/21/17 07:54 06/21/17 07:59 06/21/17 07:59 06/21/17 07:54 06/21/17 07:59 Intake & Output 06/20/17 06/21/17 06/22/17 06:59 06:59 06:59 Intake Total 720 225 Balance 720 225 Weight 40.7 kg General appearance: PRESENT: no acute distress Eye exam: PRESENT: conjunctiva pink. ABSENT: scleral icterus Mouth exam: PRESENT: moist, tongue midline Neck exam: ABSENT: JVD Respiratory exam: PRESENT: clear to auscultation veronica. ABSENT: rales, rhonchi, wheezes Cardiovascular exam: PRESENT: RRR. ABSENT: diastolic murmur, rubs, systolic murmur GI/Abdominal exam: PRESENT: normal bowel sounds, soft. ABSENT: distended, guarding, mass, organolmegaly, rebound, tenderness Extremities exam: ABSENT: calf tenderness, clubbing, pedal edema Neurological exam: PRESENT: other - Patient will not answer questions. He does not follow commands. He does move all 4 extremities. Psychiatric exam: PRESENT: flat affect Skin exam: PRESENT: dry, intact, warm. ABSENT: cyanosis, rash Results Laboratory Results: 06/19/17 06:08 06/20/17 06:05 Impressions: Chest X-Ray 06/15/17 10:19 IMPRESSION: Incidental finding of a 10 mm nodule in the anterior clear space on lateral view No acute infiltrates. Head MRI 06/18/17 00:00 IMPRESSION: Motion artifact. No acute changes EVIDENCE OF ACUTE STROKE: NO. Assessment & Plan - Diagnosis (1) Altered mental state Qualifiers: Altered mental status type: unspecified Qualified Code(s): R41.82 - Altered mental status, unspecified Is this a current diagnosis for this admission?: Yes Plan: The patient has diagnosis of schizophrenia and dementia. The sister however relates that he has been living in [place] for the last [address] initially was negative. MRI showed no abnormalities. (2) Abnormal chest x-ray Is this a current diagnosis for this admission?: Yes Plan: Patient has a positive PPD and an abnormal chest x-ray. The patient's TB Gold test was negative. (3) Dementia Qualifiers: Dementia type: unspecified type Dementia behavioral disturbance: with behavioral disturbance Qualified Code(s): F03.91 - Unspecified dementia with behavioral disturbance Is this a current diagnosis for this admission?: Yes Plan: Is not clear how this diagnosis was made. Will give Haldol as needed. 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 We will removed from isolation. 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 (5) Schizophrenia Qualifiers: Schizophrenia type: unspecified Qualified Code(s): F20.9 - Schizophrenia, unspecified Is this a current diagnosis for this admission?: Yes Plan: We will give Haldol as needed. (6) Hyponatremia Is this a current diagnosis for this admission?: Yes (7) Renal failure (ARF), acute on chronic Is this a current diagnosis for this admission?: Yes Plan: Patient is taking more n.p.o. He will not allow an IV to be given to him. - Time Time Spent with patient: 25-34 minutes - Inpatient Certification Medical Necessity: Need Close Monitoring Due to Risk of Patient Decompensation - Plan Summary Plan Summary: We will try to see if we can find an assisted living facility for him to go to
[2017-06-21] MEDS: ENOXAPARIN SODIUM INJ 40 MG/0.4 ML DISP.SYRIN SUBCUT SCH (10:51)
[2017-06-21] MEDS ORDERED: NICOTINE 7 MG/24 HR PATCH.TD24 TD PRN (20:06)
[2017-06-22 05:05] LABS: ABSOLUTE BASOPHILS # (AUTO) 0.1 10^3/uL (0.0-0.2); ABSOLUTE LYMPHOCYTES (AUTO) 1.2 10^3/uL (0.5-4.7); ABSOLUTE MONOCYTES (AUTO) 0.7 10^3/uL (0.1-1.4); ABSOLUTE NEUT (AUTO) 6.5 10^3/uL (1.7-8.2); BASOPHILS % (AUTO) 0.9 % (0-2); EOSINOPHILS % (AUTO) 0.2 % (0-6); HEMATOCRIT 47.1 % (37.9-51.0); HEMOGLOBIN 16.2 g/dL (13.5-17.0); HGB HCT DIFFERENCE 1.5; LYMPHOCYTES % (AUTO) 13.6 % (13-45); MEAN CORPUSCULAR HEMOGLOBIN 32.1 pg (27.0-33.4); MEAN CORPUSCULAR HGB CONC 34.4 g/dL (32.0-36.0); MEAN CORPUSCULAR VOLUME 93 fl (80-97); MONOCYTES % (AUTO) 8.6 % (3-13); RED BLOOD COUNT 5.05 10^6/uL (4.35-5.55); RED CELL DISTRIBUTION WIDTH 12.7 % (11.5-14.0); SEGMENTED NEUTROPHILS % (AUTO) 76.7 % (42-78); WHITE BLOOD COUNT 8.5 10^3/uL (4.0-10.5)
[2017-06-22] MEDS: GUAIFENESIN SYRP 200 MG/10 ML UDC PO SCH ×6 (05:06→23:19)
[2017-06-22 05:27] LABS: BLOOD UREA NITROGEN 67 mg/dL (7-20); CREATININE RESULT 3.12 mg/dL (0.52-1.25); GLUCOSE 112 mg/dL (75-110); POTASSIUM 4.9 mmol/L (3.6-5.0)
[2017-06-22 05:36] LABS: CARBON DIOXIDE 25 mmol/L (22-30); CHLORIDE 104 mmol/L (98-107); SODIUM 151.8 mmol/L (137-145)
[2017-06-22 05:40] LABS: ANION GAP 23 (5-19)
[2017-06-22] MEDS ORDERED: NORMAL SALINE 1000 ML 1,000 ML IV ONE (07:19)
[2017-06-22] MEDS: ACETYLCYSTEINE 20% SOLN 800 MG/4 ML VIAL.NEB NEB SCH ×2 (07:45→20:01)
[2017-06-22] MEDS: NORMAL SALINE 1000 ML 1,000 ML IV PRN ×3 (07:45→23:08)
[2017-06-22] MEDS: ALBUTEROL SULFATE 0.083% NEB 2.5 MG/3 ML AMPUL NEB PRN ×2 (07:45→20:01)
[2017-06-22] MEDS: BUSPIRONE HCL 10 MG TABLET PO SCH ×2 (08:13→23:04)
[2017-06-22] MEDS: DIVALPROEX SODIUM 125 MG CAP.SPRINK PO SCH ×2 (09:04→23:03)
[2017-06-22] MEDS ORDERED: METHYLPREDNISOLONE INJ 40 MG/1 ML SDV IV ONE (09:15)
[2017-06-22] MEDS: ENOXAPARIN SODIUM INJ 40 MG/0.4 ML DISP.SYRIN SUBCUT SCH (09:35)
--- NOTE | 2017-06-22 10:32 | RADIOLOGY REPORT (SQ) ---
EXAM DESCRIPTION: CHEST PA/LAT COMPLETED DATE/TIME: 06/22/2017 10:15 am REASON FOR STUDY: wheezing COMPARISON: 06/15/2017. TECHNIQUE: Frontal and lateral radiographic views of the chest acquired. NUMBER OF VIEWS: Two view. LIMITATIONS: None. FINDINGS: LUNGS AND PLEURA: Minimal chronic elevation left hemidiaphragm. Nodular density projectin g over the anterior mediastinum on lateral view persists, unchanged. Lungs otherwise clear. MEDIASTINUM AND HILAR STRUCTURES: Stable. HEART AND VASCULAR STRUCTURES: Normal heart size without failure. BONES: No acute findings. HARDWARE: None in the chest. OTHER: No other significant finding. IMPRESSION: Stable chest, findings as above. TECHNICAL DOCUMENTATION: JOB ID: [id number] [employer]- All Rights Reserved
--- NOTE | 2017-06-22 10:59 | PDOC PROGRESS REPORT ---
Subjective Progress Note for:: 06/22/17 Subjective:: Patient will not answer questions for me. He is not eating or drinking for the nursing staff. Physical Exam Vital Signs: Temp Pulse Resp BP Pulse Ox 97.4 F 118 H 18 114/94 H 96 06/22/17 08:22 06/22/17 08:22 06/22/17 08:22 06/22/17 08:22 06/22/17 08:22 Intake & Output 06/21/17 06/22/17 06/23/17 06:59 06:59 06:59 Intake Total 225 250 Balance 225 250 General appearance: PRESENT: no acute distress Eye exam: PRESENT: conjunctiva pink. ABSENT: scleral icterus Mouth exam: PRESENT: moist, tongue midline Neck exam: ABSENT: JVD Respiratory exam: PRESENT: wheezes, other - Patient has wheezing in the upper airways. Minimal wheezing in the lungs.. ABSENT: rales, rhonchi Cardiovascular exam: PRESENT: RRR. ABSENT: diastolic murmur, rubs, systolic murmur GI/Abdominal exam: PRESENT: normal bowel sounds, soft. ABSENT: distended, guarding, mass, organolmegaly, rebound, tenderness Extremities exam: ABSENT: calf tenderness, clubbing, pedal edema Neurological exam: PRESENT: awake, other - Patient does not cooperate for mental exam. Psychiatric exam: PRESENT: flat affect Skin exam: PRESENT: dry, intact, warm. ABSENT: cyanosis, rash Results Laboratory Results: 06/22/17 04:42 06/22/17 04:42 06/22/17 06/22/17 04:42 04:42 WBC 8.5 RBC 5.05 Hgb 16.2 Hct 47.1 MCV 93 MCH 32.1 MCHC 34.4 RDW 12.7 Plt Count 225 Seg Neutrophils % 76.7 Lymphocytes % 13.6 Monocytes % 8.6 Eosinophils % 0.2 Basophils % 0.9 Absolute Neutrophils 6.5 Absolute Lymphocytes 1.2 Absolute Monocytes 0.7 Absolute Eosinophils 0.0 Absolute Basophils 0.1 Sodium 151.8 H Potassium 4.9 Chloride 104 Carbon Dioxide 25 Anion Gap 23 H BUN 67 H Creatinine 3.12 H Est GFR ( Amer) 24 L Est GFR (Non-Af Amer) 20 L Glucose 112 H Calcium 11.0 H Impressions: Head MRI 06/18/17 00:00 IMPRESSION: Motion artifact. No acute changes EVIDENCE OF ACUTE STROKE: NO. Chest X-Ray 06/22/17 00:00 IMPRESSION: Stable chest, findings as above. Assessment & Plan - Diagnosis (1) Altered mental state Qualifiers: Altered mental status type: unspecified Qualified Code(s): R41.82 - Altered mental status, unspecified Is this a current diagnosis for this admission?: Yes Plan: The patient has diagnosis of schizophrenia and dementia. The sister however relates that he has been living in [place] for the last [address] initially was negative. MRI showed no abnormalities. (2) Abnormal chest x-ray Is this a current diagnosis for this admission?: Yes Plan: Patient has a positive PPD and an abnormal chest x-ray. The patient's TB Gold test was negative. (3) Dementia Qualifiers: Dementia type: unspecified type Dementia behavioral disturbance: with behavioral disturbance Qualified Code(s): F03.91 - Unspecified dementia with behavioral disturbance Is this a current diagnosis for this admission?: Yes Plan: Is not clear how this diagnosis was made. Will give Haldol as needed. 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 (5) Schizophrenia Qualifiers: Schizophrenia type: unspecified Qualified Code(s): F20.9 - Schizophrenia, unspecified Is this a current diagnosis for this admission?: Yes Plan: We will give Haldol as needed. (6) Hyponatremia Is this a current diagnosis for this admission?: Yes (7) Renal failure (ARF), acute on chronic Is this a current diagnosis for this admission?: Yes Plan: Patient's renal failure is worsening because of decreased p.o. intake. We will start on IV fluids. He is eating and drinking minimally. Will need to discuss with the sister whether or not to place a PEG tube in him. - Time Time Spent with patient: 15-24 minutes - Inpatient Certification Medical Necessity: Need Close Monitoring Due to Risk of Patient Decompensation, Need For IV Fluids
[2017-06-22] MEDS: METHYLPREDNISOLONE INJ 40 MG/1 ML SDV IV SCH ×2 (13:25→23:02)
[2017-06-23] MEDS: GUAIFENESIN SYRP 200 MG/10 ML UDC PO SCH ×5 (03:35→20:02)
[2017-06-23] MEDS: METHYLPREDNISOLONE INJ 40 MG/1 ML SDV IV SCH ×3 (05:08→21:01)
[2017-06-23 05:26] LABS: HEMATOCRIT 39.4 % (37.9-51.0); HGB HCT DIFFERENCE 0.5; MEAN CORPUSCULAR HEMOGLOBIN 31.9 pg (27.0-33.4); MEAN CORPUSCULAR HGB CONC 33.8 g/dL (32.0-36.0); MEAN CORPUSCULAR VOLUME 95 fl (80-97); RED BLOOD COUNT 4.17 10^6/uL (4.35-5.55); RED CELL DISTRIBUTION WIDTH 12.9 % (11.5-14.0)
[2017-06-23 05:27] LABS: HEMOGLOBIN 13.3 g/dL (13.5-17.0)
[2017-06-23 05:46] LABS: ANION GAP 17 (5-19); BLOOD UREA NITROGEN 59 mg/dL (7-20); CALCIUM 9.8 mg/dL (8.4-10.2); CARBON DIOXIDE 20 mmol/L (22-30); CHLORIDE 117 mmol/L (98-107); CREATININE RESULT 1.98 mg/dL (0.52-1.25); GLUCOSE 124 mg/dL (75-110); POTASSIUM 4.8 mmol/L (3.6-5.0); SODIUM 153.8 mmol/L (137-145)
[2017-06-23 06:06] LABS: HYPOCHROMASIA SLIGHT; MICROCYTOSIS 3+
[2017-06-23 06:07] LABS: ANISOCYTOSIS SLIGHT; SCHISTOCYTES SLIGHT
[2017-06-23 06:13] LABS: BASOPHILS % (MANUAL) 0 % (0-2); EOSINOPHILS % (MANUAL) 0 % (0-6); LYMPHOCYTES % (MANUAL) 2 % (13-45); TOTAL CELLS COUNTED 100
[2017-06-23 06:16] LABS: PLATELET CLUMPS PRESENT
[2017-06-23] MEDS: NORMAL SALINE 1000 ML 1,000 ML IV PRN ×2 (06:17→20:56)
[2017-06-23] MEDS: ALBUTEROL SULFATE 0.083% NEB 2.5 MG/3 ML AMPUL NEB PRN ×2 (07:37→20:02)
[2017-06-23] MEDS: ACETYLCYSTEINE 20% SOLN 800 MG/4 ML VIAL.NEB NEB SCH ×2 (07:37→20:01)
[2017-06-23] MEDS: BUSPIRONE HCL 10 MG TABLET PO SCH ×2 (07:45→21:00)
[2017-06-23] MEDS: DIVALPROEX SODIUM 125 MG CAP.SPRINK PO SCH ×2 (09:47→21:00)
--- NOTE | 2017-06-23 10:34 | PDOC PROGRESS REPORT ---
Subjective Progress Note for:: 06/23/17 Subjective:: Patient will not answer questions for me. He is not eating or drinking for the nursing staff. Physical Exam Vital Signs: Temp Pulse Resp BP Pulse Ox 98.5 F 103 H 18 119/73 97 06/23/17 08:20 06/23/17 08:20 06/23/17 08:20 06/23/17 08:20 06/23/17 08:20 Intake & Output 06/22/17 06/23/17 06/24/17 06:59 06:59 06:59 Intake Total 250 3008 Output Total 0 Balance 250 3008 Weight 42.7 kg General appearance: PRESENT: no acute distress Eye exam: PRESENT: conjunctiva pink. ABSENT: scleral icterus Mouth exam: PRESENT: moist, tongue midline Neck exam: ABSENT: JVD Respiratory exam: PRESENT: clear to auscultation veronica. ABSENT: rales, rhonchi, wheezes Cardiovascular exam: PRESENT: RRR. ABSENT: diastolic murmur, rubs, systolic murmur GI/Abdominal exam: PRESENT: normal bowel sounds, soft. ABSENT: distended, guarding, mass, organolmegaly, rebound, tenderness Extremities exam: ABSENT: calf tenderness, clubbing, pedal edema Neurological exam: PRESENT: altered, other - Patient does not cooperate for neurological exam. Psychiatric exam: PRESENT: flat affect Skin exam: PRESENT: dry, intact, warm. ABSENT: cyanosis, rash Results Laboratory Results: 06/23/17 05:07 06/23/17 05:07 06/23/17 06/23/17 05:07 05:07 WBC 8.0 RBC 4.17 L Hgb 13.3 L D Hct 39.4 MCV 95 MCH 31.9 MCHC 33.8 RDW 12.9 Plt Count 193 Seg Neutrophils % Not Reportable Lymphocytes % Not Reportable Monocytes % Not Reportable Eosinophils % Not Reportable Basophils % Not Reportable Absolute Neutrophils Not Reportable Absolute Lymphocytes Not Reportable Absolute Monocytes Not Reportable Absolute Eosinophils Not Reportable Absolute Basophils Not Reportable Sodium 153.8 H Potassium 4.8 Chloride 117 H Carbon Dioxide 20 L Anion Gap 17 BUN 59 H Creatinine 1.98 H Est GFR ( Amer) 41 L Est GFR (Non-Af Amer) 34 L Glucose 124 H Calcium 9.8 06/19/17 21:54 Sputum AFB Smear Concentration - Final 06/19/17 21:54 Sputum Acid Fast Bacilli Smear - Final Impressions: Head MRI 06/18/17 00:00 IMPRESSION: Motion artifact. No acute changes EVIDENCE OF ACUTE STROKE: NO. Chest X-Ray 06/22/17 00:00 IMPRESSION: Stable chest, findings as above. Assessment & Plan - Diagnosis (1) Altered mental state Qualifiers: Altered mental status type: unspecified Qualified Code(s): R41.82 - Altered mental status, unspecified Is this a current diagnosis for this admission?: Yes Plan: The patient has diagnosis of schizophrenia and dementia. The sister however relates that he has been living in [place] for the last [address] initially was negative. MRI showed no abnormalities. The patient is not eating or drinking. I discussed with his sister whether or not to place a PEG tube or to make him hospice. She will discuss this with the 9 other siblings and let us know what their plan is. (2) Abnormal chest x-ray Is this a current diagnosis for this admission?: Yes Plan: Patient has a positive PPD and an abnormal chest x-ray. The patient's TB Gold test was negative. (3) Dementia Qualifiers: Dementia type: unspecified type Dementia behavioral disturbance: with behavioral disturbance Qualified Code(s): F03.91 - Unspecified dementia with behavioral disturbance Is this a current diagnosis for this admission?: Yes Plan: Is not clear how this diagnosis was made. Will give Haldol as needed. 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 (5) Schizophrenia Qualifiers: Schizophrenia type: unspecified Qualified Code(s): F20.9 - Schizophrenia, unspecified Is this a current diagnosis for this admission?: Yes Plan: We will give Haldol as needed. (6) Hyponatremia Is this a current diagnosis for this admission?: Yes (7) Renal failure (ARF), acute on chronic Is this a current diagnosis for this admission?: Yes Plan: He is eating and drinking minimally. He was given fluids overnight and his creatinine has improved. Will need to discuss with the sister whether or not to place a PEG tube in him. (8) Stridor Is this a current diagnosis for this admission?: Yes Plan: This has resolved with IV steroids - Time Time Spent with patient: 25-34 minutes - Inpatient Certification Medical Necessity: Need For IV Fluids
[2017-06-23] MEDS: ENOXAPARIN SODIUM INJ 40 MG/0.4 ML DISP.SYRIN SUBCUT SCH (10:53)
[2017-06-24] MEDS: GUAIFENESIN SYRP 200 MG/10 ML UDC PO SCH ×7 (01:45→23:10)
[2017-06-24] MEDS: NORMAL SALINE 1000 ML 1,000 ML IV PRN ×3 (04:06→19:03)
[2017-06-24] MEDS: METHYLPREDNISOLONE INJ 40 MG/1 ML SDV IV SCH (06:10)
[2017-06-24 06:38] LABS: HEMATOCRIT 34.2 % (37.9-51.0); HEMOGLOBIN 11.6 g/dL (13.5-17.0); HGB HCT DIFFERENCE 0.6; MEAN CORPUSCULAR HEMOGLOBIN 32.4 pg (27.0-33.4); MEAN CORPUSCULAR HGB CONC 33.8 g/dL (32.0-36.0); MEAN CORPUSCULAR VOLUME 96 fl (80-97); RED BLOOD COUNT 3.57 10^6/uL (4.35-5.55); RED CELL DISTRIBUTION WIDTH 12.6 % (11.5-14.0); WHITE BLOOD COUNT 7.2 10^3/uL (4.0-10.5)
[2017-06-24 06:55] LABS: ANION GAP 13 (5-19); BLOOD UREA NITROGEN 45 mg/dL (7-20); CALCIUM 9.6 mg/dL (8.4-10.2); CARBON DIOXIDE 19 mmol/L (22-30); CHLORIDE 124 mmol/L (98-107); CREATININE RESULT 1.29 mg/dL (0.52-1.25); GLUCOSE 103 mg/dL (75-110); POTASSIUM 4.5 mmol/L (3.6-5.0)
[2017-06-24 06:57] LABS: BAND NEUTROPHILS % (MANUAL) 2 % (3-5); BASOPHILS % (MANUAL) 0 % (0-2); EOSINOPHILS % (MANUAL) 0 % (0-6); LYMPHOCYTES % (MANUAL) 6 % (13-45); TOTAL CELLS COUNTED 100
[2017-06-24 06:58] LABS: BURR CELLS SLIGHT; OVALOCYTES SLIGHT; POIKILOCYTOSIS SLIGHT; TOXIC GRANULATION SLIGHT; TOXIC VACUOLATION PRESENT
[2017-06-24] MEDS: ALBUTEROL SULFATE 0.083% NEB 2.5 MG/3 ML AMPUL NEB PRN ×2 (07:45→20:22)
[2017-06-24] MEDS: ACETYLCYSTEINE 20% SOLN 800 MG/4 ML VIAL.NEB NEB SCH ×2 (07:45→20:22)
[2017-06-24] MEDS: DIVALPROEX SODIUM 125 MG CAP.SPRINK PO SCH ×2 (10:39→22:30)
[2017-06-24] MEDS: BUSPIRONE HCL 10 MG TABLET PO SCH ×2 (10:39→22:30)
--- NOTE | 2017-06-24 10:40 | PDOC PROGRESS REPORT ---
Subjective Progress Note for:: 06/24/17 Subjective:: 66-year-old gentleman who was brought and to the emergency room on 11 June for placement. The patient moved away from an area approximately 20 years ago and moved to [place]. The patient's family lost track of him and he recently showed up back in [place]. Is felt that he was probably homeless at that time and is unclear as to whether there were substance abuse involved. The patient has had a history of dementia and schizophrenia. The family noticed that he had become combative at home and was not following commands. He was brought into the emergency room on 11 June and has been awaiting placement. He had a PPD done and this was positive. The patient was admitted for isolation for workup of tuberculosis. The patient had a negative TB Gold test. He was removed from isolation. However during this his head CT was done because of his confusion which was unremarkable. An MRI was also obtained. The patient will not follow commands. He does not speak and has not been eating. I have discussed with family members about whether or not to make him hospice or to put a PEG tube in place. He has 9 siblings and they are in the process now discussing whether or not to have a PEG tube or to go with hospice. The patient has been waiting still for placement. Physical Exam Vital Signs: Temp Pulse Resp BP Pulse Ox 98.2 F 87 18 109/58 L 100 06/24/17 08:05 06/24/17 08:05 06/24/17 08:05 06/24/17 08:05 06/24/17 08:05 Intake & Output 06/23/17 06/24/17 06/25/17 06:59 06:59 06:59 Intake Total 3008 3165 Output Total 0 2 Balance 3008 3163 Weight 42.7 kg 46.7 kg General appearance: PRESENT: no acute distress Eye exam: PRESENT: conjunctiva pink. ABSENT: scleral icterus Ear exam: PRESENT: normal external ear exam Mouth exam: PRESENT: moist, tongue midline Neck exam: ABSENT: JVD Respiratory exam: PRESENT: clear to auscultation veronica. ABSENT: rales, rhonchi, wheezes Cardiovascular exam: PRESENT: RRR. ABSENT: diastolic murmur, rubs, systolic murmur GI/Abdominal exam: PRESENT: normal bowel sounds, soft. ABSENT: distended, guarding, mass, organolmegaly, rebound, tenderness Extremities exam: ABSENT: calf tenderness, clubbing, pedal edema Neurological exam: PRESENT: awake, aphasic. ABSENT: oriented to person, oriented to place, oriented to time, oriented to situation Psychiatric exam: PRESENT: flat affect Skin exam: PRESENT: dry, intact, warm. ABSENT: cyanosis, rash Results Laboratory Results: 06/24/17 06:26 06/24/17 06:26 06/24/17 06/24/17 06:26 06:26 WBC 7.2 RBC 3.57 L Hgb 11.6 L Hct 34.2 L MCV 96 MCH 32.4 MCHC 33.8 RDW 12.6 Plt Count 169 Seg Neutrophils % Not Reportable Lymphocytes % Not Reportable Monocytes % Not Reportable Eosinophils % Not Reportable Basophils % Not Reportable Absolute Neutrophils Not Reportable Absolute Lymphocytes Not Reportable Absolute Monocytes Not Reportable Absolute Eosinophils Not Reportable Absolute Basophils Not Reportable Sodium 156.0 H Potassium 4.5 Chloride 124 H Carbon Dioxide 19 L Anion Gap 13 BUN 45 H Creatinine 1.29 H Est GFR ( Amer) > 60 Est GFR (Non-Af Amer) 56 L Glucose 103 Calcium 9.6 06/19/17 21:54 Sputum AFB Smear Concentration - Final 06/19/17 21:54 Sputum Acid Fast Bacilli Smear - Final Impressions: Head MRI 06/18/17 00:00 IMPRESSION: Motion artifact. No acute changes EVIDENCE OF ACUTE STROKE: NO. Chest X-Ray 06/22/17 00:00 IMPRESSION: Stable chest, findings as above. Assessment & Plan - Diagnosis (1) Altered mental state Qualifiers: Altered mental status type: unspecified Qualified Code(s): R41.82 - Altered mental status, unspecified Is this a current diagnosis for this admission?: Yes Plan: The patient has diagnosis of schizophrenia and dementia. The sister however relates that he has been living in [place] for the last [address] initially was negative. MRI showed no abnormalities. The patient is not eating or drinking. I discussed with his sister whether or not to place a PEG tube or to make him hospice. She will discuss this with the 9 other siblings and let us know what their plan is. (2) Abnormal chest x-ray Is this a current diagnosis for this admission?: Yes Plan: Patient has a positive PPD and an abnormal chest x-ray. The patient's TB Gold test was negative. (3) Dementia Qualifiers: Dementia type: unspecified type Dementia behavioral disturbance: with behavioral disturbance Qualified Code(s): F03.91 - Unspecified dementia with behavioral disturbance Is this a current diagnosis for this admission?: Yes Plan: Is not clear how this diagnosis was made. Will give Haldol as needed. 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 (5) Schizophrenia Qualifiers: Schizophrenia type: unspecified Qualified Code(s): F20.9 - Schizophrenia, unspecified Is this a current diagnosis for this admission?: Yes Plan: We will give Haldol as needed. (6) Hyponatremia Is this a current diagnosis for this admission?: Yes (7) Renal failure (ARF), acute on chronic Is this a current diagnosis for this admission?: Yes Plan: He is eating and drinking minimally. He was given fluids and his creatinine has improved. Family is discussing whether to go with hospice or PEG tube placement. (8) Stridor Is this a current diagnosis for this admission?: Yes Plan: This has resolved with IV steroids. We will begin to wean the prednisone. - Time Time Spent with patient: 25-34 minutes - Inpatient Certification Medical Necessity: Need For IV Fluids
[2017-06-24] MEDS: ENOXAPARIN SODIUM INJ 40 MG/0.4 ML DISP.SYRIN SUBCUT SCH (10:41)
[2017-06-24] MEDS: ONDANSETRON HCL INJ/PF 4 MG/2 ML SDV IV PRN (15:06)
[2017-06-25] MEDS: GUAIFENESIN SYRP 200 MG/10 ML UDC PO SCH ×4 (03:20→15:22)
[2017-06-25 08:04] LABS: ABSOLUTE LYMPHOCYTES (AUTO) 0.9 10^3/uL (0.5-4.7); ABSOLUTE MONOCYTES (AUTO) 0.5 10^3/uL (0.1-1.4); BASOPHILS % (AUTO) 0.1 % (0-2); HEMATOCRIT 32.4 % (37.9-51.0); HEMOGLOBIN 10.8 g/dL (13.5-17.0); LYMPHOCYTES % (AUTO) 15.7 % (13-45); MEAN CORPUSCULAR HEMOGLOBIN 32.1 pg (27.0-33.4); MEAN CORPUSCULAR HGB CONC 33.3 g/dL (32.0-36.0); MEAN CORPUSCULAR VOLUME 97 fl (80-97); RED BLOOD COUNT 3.35 10^6/uL (4.35-5.55); RED CELL DISTRIBUTION WIDTH 13.1 % (11.5-14.0); SEGMENTED NEUTROPHILS % (AUTO) 74.2 % (42-78); WHITE BLOOD COUNT 5.4 10^3/uL (4.0-10.5)
[2017-06-25 08:23] LABS: ANION GAP 8 (5-19); BLOOD UREA NITROGEN 34 mg/dL (7-20); CALCIUM 9.3 mg/dL (8.4-10.2); CARBON DIOXIDE 25 mmol/L (22-30); CHLORIDE 125 mmol/L (98-107); CREATININE RESULT 1.41 mg/dL (0.52-1.25); GLUCOSE 77 mg/dL (75-110); POTASSIUM 4.6 mmol/L (3.6-5.0); SODIUM 158.1 mmol/L (137-145)
[2017-06-25] MEDS: ALBUTEROL SULFATE 0.083% NEB 2.5 MG/3 ML AMPUL NEB PRN ×2 (08:24→20:05)
[2017-06-25] MEDS: ACETYLCYSTEINE 20% SOLN 800 MG/4 ML VIAL.NEB NEB SCH ×2 (08:24→20:05)
[2017-06-25] MEDS: BUSPIRONE HCL 10 MG TABLET PO SCH ×2 (08:52→22:38)
[2017-06-25] MEDS: ENOXAPARIN SODIUM INJ 40 MG/0.4 ML DISP.SYRIN SUBCUT SCH (09:34)
[2017-06-25] MEDS: DIVALPROEX SODIUM 125 MG CAP.SPRINK PO SCH ×2 (09:34→22:38)
[2017-06-25] MEDS: PREDNISONE 20 MG TABLET PO SCH (09:36)
[2017-06-25] MEDS: NORMAL SALINE 1000 ML 1,000 ML IV PRN (11:15)
[2017-06-25] MEDS: DEXTROSE 5%-WATER 1000 ML 1,000 ML IV PRN (15:21)
[2017-06-25] MEDS ORDERED: GUAIFENESIN SYRP 200 MG/10 ML UDC PO PRN (15:52)
--- NOTE | 2017-06-25 16:34 | PDOC PROGRESS REPORT ---
Subjective Progress Note for:: 06/25/17 Subjective:: There is a follow-up visit for dementia and acute renal failure. Patient is speaking today. For the most part he answers questions with yes and no. He was able to repeat a phrase back to me that I said. For instance I said okay see you tomorrow and he said this exactly back to me. Physical Exam Vital Signs: Temp Pulse Resp BP Pulse Ox 97.9 F 62 18 101/60 97 06/25/17 11:27 06/25/17 11:27 06/25/17 11:27 06/25/17 11:27 06/25/17 11:27 Intake & Output 06/24/17 06/25/17 06/26/17 06:59 06:59 06:59 Intake Total 3165 1904 222 Output Total 2 Balance 3163 1904 222 Weight 46.7 kg 49.9 kg GENERAL: [Is a well-developed, ill-appearing -Andorran male resting in bed currently in no acute distress trying to eat dinner.] HEART: [Regular rate and rhythm. No murmurs, rubs or gallops.] LUNGS: [Clear to auscultation bilaterally with equal rise and fall of the chest. ] ABDOMEN: [Soft, nontender, nondistended with normoactive bowel sounds] EXTREMETIES: [No clubbing, cyanosis or edema. 2+ peripheral pulses bilaterally. ] NEURO: [Awake, alert. Disoriented. When asked the patient the year he tells me one year and then perseverates on saying 1 year.] Results Laboratory Results: 06/25/17 07:21 06/25/17 07:21 06/25/17 06/25/17 07:21 07:21 WBC 5.4 RBC 3.35 L Hgb 10.8 L Hct 32.4 L MCV 97 MCH 32.1 MCHC 33.3 RDW 13.1 Plt Count 188 Seg Neutrophils % 74.2 Lymphocytes % 15.7 Monocytes % 10.0 Eosinophils % 0.0 Basophils % 0.1 Absolute Neutrophils 4.0 Absolute Lymphocytes 0.9 Absolute Monocytes 0.5 Absolute Eosinophils 0.0 Absolute Basophils 0.0 Sodium 158.1 H Potassium 4.6 Chloride 125 H Carbon Dioxide 25 Anion Gap 8 BUN 34 H Creatinine 1.41 H Est GFR ( Amer) > 60 Est GFR (Non-Af Amer) 51 L Glucose 77 Calcium 9.3 Impressions: Head MRI 06/18/17 00:00 IMPRESSION: Motion artifact. No acute changes EVIDENCE OF ACUTE STROKE: NO. Chest X-Ray 06/22/17 00:00 IMPRESSION: Stable chest, findings as above. Assessment & Plan - Diagnosis (1) Altered mental state Qualifiers: Altered mental status type: unspecified Qualified Code(s): R41.82 - Altered mental status, unspecified Is this a current diagnosis for this admission?: Yes Plan: The patient may have some underlying dementia and underlying schizophrenia. He was felt to be worse from baseline. This is my first day meeting him I am not certain how he usually is at baseline but in review of the chart it seems to me that he is better today than previous days. Continue to monitor. (2) Dehydration Plan: Patient has been receiving normal saline solution. Unfortunately he is now hypernatremic. Remains dehydrated. Discontinue normal saline solution and change to D5 water. (3) Dementia Qualifiers: Dementia type: unspecified type Dementia behavioral disturbance: with behavioral disturbance Qualified Code(s): F03.91 - Unspecified dementia with behavioral disturbance Is this a current diagnosis for this admission?: Yes Plan: Family is supposed to be deciding whether or not they would want to pursue a PEG tube placement in this patient versus taking him home on hospice. No word of the decision yet. (4) Renal failure (ARF), acute on chronic Is this a current diagnosis for this admission?: Yes Plan: Improved overall. Change fluids to D5 water. (5) Schizo NOS, subchrn/exacer Plan: Continue current medications. (6) Stridor Is this a current diagnosis for this admission?: Yes Plan: Wean prednisone. (7) Dysphasia Plan: The patient has gurgling sounds while he is trying to eat. Consult speech therapy. (8) Hypernatremia Plan: Patient is hypernatremic at 158. In looking back it does not seem that he was ever hyponatremic. He is been on normal saline solution since admission when his sodium was normal. Discontinue normal saline and change to D5 water at 100. - Time Time Spent with patient: 15-24 minutes - Inpatient Certification Medical Necessity: Need Close Monitoring Due to Risk of Patient Decompensation
[2017-06-26] MEDS: DEXTROSE 5%-WATER 1000 ML 1,000 ML IV PRN ×2 (06:28→19:00)
[2017-06-26 07:06] LABS: ABSOLUTE LYMPHOCYTES (AUTO) 0.8 10^3/uL (0.5-4.7); ABSOLUTE MONOCYTES (AUTO) 0.4 10^3/uL (0.1-1.4); ABSOLUTE NEUT (AUTO) 3.5 10^3/uL (1.7-8.2); BASOPHILS % (AUTO) 0.3 % (0-2); EOSINOPHILS % (AUTO) 0.2 % (0-6); HEMATOCRIT 32.1 % (37.9-51.0); HEMOGLOBIN 10.9 g/dL (13.5-17.0); HGB HCT DIFFERENCE 0.6; LYMPHOCYTES % (AUTO) 17.2 % (13-45); MEAN CORPUSCULAR VOLUME 94 fl (80-97); MONOCYTES % (AUTO) 8.9 % (3-13); RED CELL DISTRIBUTION WIDTH 12.4 % (11.5-14.0); SEGMENTED NEUTROPHILS % (AUTO) 73.4 % (42-78); WHITE BLOOD COUNT 4.7 10^3/uL (4.0-10.5)
[2017-06-26 07:38] LABS: ANION GAP 12 (5-19); BLOOD UREA NITROGEN 21 mg/dL (7-20); CALCIUM 8.9 mg/dL (8.4-10.2); CARBON DIOXIDE 22 mmol/L (22-30); CHLORIDE 114 mmol/L (98-107); CREATININE RESULT 1.03 mg/dL (0.52-1.25); GLUCOSE 111 mg/dL (75-110); MAGNESIUM 1.7 mg/dL (1.6-2.3); POTASSIUM 3.8 mmol/L (3.6-5.0); SODIUM 147.7 mmol/L (137-145)
[2017-06-26] MEDS: BUSPIRONE HCL 10 MG TABLET PO SCH ×2 (07:53→22:46)
[2017-06-26] MEDS: ALBUTEROL SULFATE 0.083% NEB 2.5 MG/3 ML AMPUL NEB PRN ×2 (08:18→20:13)
[2017-06-26] MEDS: ACETYLCYSTEINE 20% SOLN 800 MG/4 ML VIAL.NEB NEB SCH ×2 (08:20→20:13)
[2017-06-26] MEDS: ENOXAPARIN SODIUM INJ 40 MG/0.4 ML DISP.SYRIN SUBCUT SCH (09:37)
[2017-06-26] MEDS: DIVALPROEX SODIUM 125 MG CAP.SPRINK PO SCH ×2 (09:37→22:45)
[2017-06-26] MEDS: PREDNISONE 20 MG TABLET PO SCH (09:39)
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
[2017-06-27] MEDS: HALOPERIDOL LACTATE INJ 5 MG/1 ML VIAL IV PRN (02:58)
[2017-06-27] MEDS: DEXTROSE 5%-WATER 1000 ML 1,000 ML IV PRN (06:16)
[2017-06-27] MEDS: ACETYLCYSTEINE 20% SOLN 800 MG/4 ML VIAL.NEB NEB SCH ×2 (08:03→20:17)
[2017-06-27] MEDS: ALBUTEROL SULFATE 0.083% NEB 2.5 MG/3 ML AMPUL NEB PRN ×2 (08:03→20:17)
[2017-06-27] MEDS: BUSPIRONE HCL 10 MG TABLET PO SCH ×2 (08:46→22:19)
[2017-06-27] MEDS: DIVALPROEX SODIUM 125 MG CAP.SPRINK PO SCH ×2 (10:48→22:19)
[2017-06-27] MEDS: ENOXAPARIN SODIUM INJ 40 MG/0.4 ML DISP.SYRIN SUBCUT SCH (10:48)
[2017-06-27] MEDS: PREDNISONE 20 MG TABLET PO SCH (10:48)
--- NOTE | 2017-06-27 18:51 | PDOC PROGRESS REPORT ---
Subjective Progress Note for:: 06/27/17 Subjective:: There is a follow-up visit for dementia and acute renal failure. Patient is speaking today. For the most part he answers questions with yes and no. No acute events overnight. Physical Exam Vital Signs: Temp Pulse Resp BP Pulse Ox 98.0 F 70 17 163/94 H 100 06/27/17 16:31 06/27/17 16:31 06/27/17 16:31 06/27/17 16:31 06/27/17 16:31 Intake & Output 06/26/17 06/27/17 06/28/17 06:59 06:59 06:59 Intake Total 3067 2272 1300 Balance 3067 2272 1300 Weight 49.6 kg 49.9 kg GENERAL: Is a well-developed, ill-appearing -[place]cuadorean male resting in bed no acute distress HEART: Regular rate and rhythm. No murmurs, rubs or gallops. LUNGS: Clear to auscultation bilaterally with equal rise and fall of the chest. ABDOMEN: Soft, nontender, nondistended with normoactive bowel sounds EXTREMETIES: No clubbing, cyanosis or edema. 2+ peripheral pulses bilaterally. NEURO: Awake, alert. Disoriented. Skin: The patient has a large blister on the left heel. Results Laboratory Results: 06/26/17 06:55 06/26/17 06:55 Impressions: Head MRI 06/18/17 00:00 IMPRESSION: Motion artifact. No acute changes EVIDENCE OF ACUTE STROKE: NO. Chest X-Ray 06/22/17 00:00 IMPRESSION: Stable chest, findings as above. Assessment & Plan - Diagnosis (1) Altered mental state Qualifiers: Altered mental status type: unspecified Qualified Code(s): R41.82 - Altered mental status, unspecified Is this a current diagnosis for this admission?: Yes Plan: The patient may have some underlying dementia and underlying schizophrenia. He was felt to be worse from baseline. I think what I am seeing today is the patient at his baseline. (2) Dehydration Plan: Patient has been receiving normal saline solution. Unfortunately he is now hypernatremic. Remains dehydrated. Continue D5 water. The patient is improved. Recheck sodium in the more (3) Dementia Qualifiers: Dementia type: unspecified type Dementia behavioral disturbance: with behavioral disturbance Qualified Code(s): F03.91 - Unspecified dementia with behavioral disturbance Is this a current diagnosis for this admission?: Yes Plan: Family is supposed to be deciding whether or not they would want to pursue a PEG tube placement in this patient versus taking him home on hospice. No word of the decision yet. (4) Renal failure (ARF), acute on chronic Is this a current diagnosis for this admission?: Yes Plan: Improved overall. Continue fluids to D5 water. (5) Schizo NOS, subchrn/exacer Plan: Continue current medications. (6) Stridor Is this a current diagnosis for this admission?: Yes Plan: Wean prednisone. (7) Dysphasia Plan: The patient has gurgling sounds while he is trying to eat. Continue ground meats. (8) Hypernatremia Plan: Patient is hypernatremic at 147. In looking back it does not seem that he was ever hyponatremic. He is been on normal saline solution since admission when his sodium was normal. Normal saline was discontinued yesterday. Continue D5 water at 100. - Time Time Spent with patient: 15-24 minutes
[2017-06-28] MEDS: DEXTROSE 5%-WATER 1000 ML 1,000 ML IV PRN ×3 (03:21→23:53)
[2017-06-28] MEDS: BUSPIRONE HCL 10 MG TABLET PO SCH ×2 (08:39→21:32)
[2017-06-28] MEDS: ALBUTEROL SULFATE 0.083% NEB 2.5 MG/3 ML AMPUL NEB PRN (08:51)
[2017-06-28] MEDS: ACETYLCYSTEINE 20% SOLN 800 MG/4 ML VIAL.NEB NEB SCH (08:51)
--- NOTE | 2017-06-28 10:33 | PDOC PROGRESS REPORT ---
Subjective Progress Note for:: 06/28/17 Subjective:: There is a follow-up visit for dementia and acute renal failure. Patient is speaking today. He is accompanied today by his sister. Discussed the patient' s blister on his heel as well as the patient's rehab potential and where he could hopefully be placed. Overnight and into the morning the patient has been trying to get out of bed on his own. Physical Exam Vital Signs: Temp Pulse Resp BP Pulse Ox 98.2 F 73 18 113/75 98 06/28/17 07:36 06/28/17 08:51 06/28/17 08:51 06/28/17 07:36 06/28/17 08:51 Intake & Output 06/27/17 06/28/17 06/29/17 06:59 06:59 06:59 Intake Total 2272 2500 Output Total 550 Balance 2272 1950 Weight 49.9 kg 50.4 kg GENERAL: Is a well-developed, ill-appearing -[place]ierra Leonean male resting in bed no acute distress HEART: Regular rate and rhythm. No murmurs, rubs or gallops. LUNGS: Clear to auscultation bilaterally with equal rise and fall of the chest. ABDOMEN: Soft, nontender, nondistended with normoactive bowel sounds EXTREMETIES: No clubbing, cyanosis or edema. 2+ peripheral pulses bilaterally. NEURO: Awake, alert. Disoriented. Skin: The patient has a large blister on the left heel that is currently bandaged. Results Laboratory Results: 06/26/17 06:55 06/26/17 06:55 Impressions: Head MRI 06/18/17 00:00 IMPRESSION: Motion artifact. No acute changes EVIDENCE OF ACUTE STROKE: NO. Chest X-Ray 06/22/17 00:00 IMPRESSION: Stable chest, findings as above. Assessment & Plan - Diagnosis (1) Altered mental state Qualifiers: Altered mental status type: unspecified Qualified Code(s): R41.82 - Altered mental status, unspecified Is this a current diagnosis for this admission?: Yes Plan: The patient may have some underlying dementia and underlying schizophrenia. He was felt to be worse from baseline. I think what I am seeing is the patient at his baseline. (2) Dehydration Plan: Patient has been receiving normal saline solution. Unfortunately he is now hypernatremic. Remains dehydrated. Continue D5 water. The patient is improved. Patient has refused labs for today. (3) Dementia Qualifiers: Dementia type: unspecified type Dementia behavioral disturbance: with behavioral disturbance Qualified Code(s): F03.91 - Unspecified dementia with behavioral disturbance Is this a current diagnosis for this admission?: Yes Plan: Patient has a reported history of underlying dementia. This is coupled with a history of underlying schizophrenia. At this point it is difficult to know just how much the patient can understand. He is not oriented and speaks very little. She refuses to take any medications. Therefore, I am reluctant to add on anything like Namenda. We certainly can try. Family is supposed to be deciding whether or not they would want to pursue a PEG tube placement in this patient versus taking him home on hospice. Since the patient is now trying to eat I have told his sister that I recommend taking PEG tube off the table. I would like to give the patient an opportunity to demonstrate that he can eat and maintain his own nutrition. If he is unsuccessful then his family can consider this in the near future. (4) Renal failure (ARF), acute on chronic Is this a current diagnosis for this admission?: Yes Plan: Resolved. (5) Schizo NOS, subchrn/exacer Plan: Continue current medications. (6) Stridor Is this a current diagnosis for this admission?: Yes Plan: Wean prednisone. (7) Dysphasia Plan: The patient has gurgling sounds while he is trying to eat. Continue ground meats. (8) Hypernatremia Plan: Patient is hypernatremic at 147. In looking back it does not seem that he was ever hyponatremic. He is been on normal saline solution since admission when his sodium was normal. Normal saline was discontinued yesterday. Continue D5 water at 100. Patient has refused labs. - Time Time Spent with patient: 15-24 minutes
[2017-06-28] MEDS ORDERED: PREDNISONE 20 MG TABLET PO ONE (11:00)
[2017-06-28] MEDS: DIVALPROEX SODIUM 125 MG CAP.SPRINK PO SCH ×2 (12:49→21:32)
[2017-06-28] MEDS: ENOXAPARIN SODIUM INJ 40 MG/0.4 ML DISP.SYRIN SUBCUT SCH (12:50)
[2017-06-29] MEDS: BUSPIRONE HCL 10 MG TABLET PO SCH ×2 (10:36→22:02)
[2017-06-29] MEDS: MEMANTINE HCL 10 MG TABLET PO SCH (10:36)
[2017-06-29] MEDS: DIVALPROEX SODIUM 125 MG CAP.SPRINK PO SCH ×2 (10:36→22:02)
[2017-06-29] MEDS: PREDNISONE 20 MG TABLET PO SCH (10:36)
[2017-06-29] MEDS: ENOXAPARIN SODIUM INJ 40 MG/0.4 ML DISP.SYRIN SUBCUT SCH (10:37)
--- NOTE | 2017-06-29 11:16 | PDOC PROGRESS REPORT ---
Subjective Progress Note for:: 06/29/17 Subjective:: reason for visit: f/u stridor, AMS, hypernatremia, dementia I found him resting in bed, he will interact but it is deliberate and time consuming, he is a man of few words. he will follow commands and moves all 4 extremities but has no idea where he is or why and cannot give a reliable ROS or medical history and there are no family/caregivers at the bedside. Physical Exam Vital Signs: Temp Pulse Resp BP Pulse Ox 98.4 F 68 16 146/89 H 100 06/29/17 08:04 06/29/17 08:04 06/29/17 08:04 06/29/17 08:04 06/29/17 08:04 Intake & Output 06/28/17 06/29/17 06/30/17 06:59 06:59 06:59 Intake Total 2500 2677 Output Total 550 300 Balance 1950 2377 Weight 50.4 kg 47.5 kg General appearance: PRESENT: no acute distress, thin Eye exam: PRESENT: EOMI, PERRLA Mouth exam: PRESENT: moist, neck supple Teeth exam: PRESENT: dental caries Neck exam: PRESENT: full ROM. ABSENT: lymphadenopathy Respiratory exam: PRESENT: crackles - bilat bases but no true rales and no other adventitious sounds. ABSENT: accessory muscle use Cardiovascular exam: ABSENT: systolic murmur, tachycardia Extremities exam: ABSENT: pedal edema Musculoskeletal exam: PRESENT: full ROM Neurological exam: PRESENT: alert, awake, oriented to person. ABSENT: oriented to place, oriented to time, oriented to situation Psychiatric exam: ABSENT: agitated, anxious Focused psych exam: ABSENT: restlessness Results Laboratory Results: 06/26/17 06:55 06/26/17 06:55 Impressions: Head MRI 06/18/17 00:00 IMPRESSION: Motion artifact. No acute changes EVIDENCE OF ACUTE STROKE: NO. Chest X-Ray 06/22/17 00:00 IMPRESSION: Stable chest, findings as above. Assessment & Plan - Diagnosis (1) Altered mental state Qualifiers: Altered mental status type: unspecified Qualified Code(s): R41.82 - Altered mental status, unspecified Is this a current diagnosis for this admission?: Yes Plan: unclear what his baseline is but I suspect based on chart review that he is there. Not clear what the inciting event was but certainly compounded by his psychiatric conditions, polypharm and electrolyte abnl's with dehydration and ARF all of which seem to have improved. ann marie is struggling to make placement decisions which seems to be the next step. (2) Dehydration Is this a current diagnosis for this admission?: Yes Plan: resolved, no evidence of volume depletion on today's exam. he is pulling out IV lines and really hasn't received the ordered IVFs for the last 25-48hrs per nursing staff. will d/c IVFs ordered and vivienne labs in am. (3) Dementia Qualifiers: Dementia type: unspecified type Dementia behavioral disturbance: with behavioral disturbance Qualified Code(s): F03.91 - Unspecified dementia with behavioral disturbance Is this a current diagnosis for this admission?: Yes Plan: probably at baseline (4) Hypernatremia Is this a current diagnosis for this admission?: Yes Plan: ck in am (5) Stridor Is this a current diagnosis for this admission?: Yes Plan: I found him sneaking a peanut filled candy bar into his mouth and he had no difficulty swallowing; agree with continuing current diet orders and staff alerted to this behavior. - Time Time Spent with patient: 25-34 minutes
[2017-06-30 08:08] LABS: ANION GAP 9 (5-19); BLOOD UREA NITROGEN 7 mg/dL (7-20); CALCIUM 9.2 mg/dL (8.4-10.2); CARBON DIOXIDE 33 mmol/L (22-30); CHLORIDE 101 mmol/L (98-107); CREATININE RESULT 1.03 mg/dL (0.52-1.25); GLUCOSE 87 mg/dL (75-110); SODIUM 142.7 mmol/L (137-145)
[2017-06-30] MEDS: DIVALPROEX SODIUM 125 MG CAP.SPRINK PO SCH ×2 (09:23→21:29)
[2017-06-30] MEDS: BUSPIRONE HCL 10 MG TABLET PO SCH ×2 (09:24→21:29)
[2017-06-30] MEDS: PREDNISONE 20 MG TABLET PO SCH (09:24)
[2017-06-30] MEDS: MEMANTINE HCL 10 MG TABLET PO SCH (09:24)
[2017-06-30] MEDS: ENOXAPARIN SODIUM INJ 40 MG/0.4 ML DISP.SYRIN SUBCUT SCH (09:26)
[2017-06-30] MEDS ORDERED: POTASSIUM CHLORIDE 20 MEQ/15 ML UDCUP PO ONE (09:30)
--- NOTE | 2017-06-30 09:33 | PDOC PROGRESS REPORT ---
Subjective Progress Note for:: 06/30/17 Subjective:: There is a follow-up visit for dementia and acute renal failure. Patient is speaking today. He is sitting up in bed actively eating breakfast. No acute events overnight. He denies any pain. Physical Exam Vital Signs: Temp Pulse Resp BP Pulse Ox 97.6 F 63 16 108/62 99 06/30/17 07:55 06/30/17 07:55 06/30/17 07:55 06/30/17 07:55 06/30/17 07:55 Intake & Output 06/29/17 06/30/17 07/01/17 06:59 06:59 06:59 Intake Total 2677 655 Output Total 300 100 Balance 2377 555 Weight 47.5 kg 45.3 kg GENERAL: Is a well-developed, ill-appearing -[place] male resting in bed eating and in no acute distress HEART: Regular rate and rhythm. No murmurs, rubs or gallops. LUNGS: Clear to auscultation from the anterior perspective bilaterally with equal rise and fall of the chest. Occasional cough with eating. ABDOMEN: Soft, nontender, nondistended with normoactive bowel sounds EXTREMETIES: No clubbing, cyanosis or edema. 2+ peripheral pulses bilaterally. NEURO: Awake, alert. Disoriented. Skin: The patient has a large blister on the left heel that is currently bandaged. Results Laboratory Results: 06/26/17 06:55 06/30/17 07:24 06/30/17 07:24 Sodium 142.7 Potassium 3.0 L* Chloride 101 Carbon Dioxide 33 H Anion Gap 9 BUN 7 Creatinine 1.03 Est GFR ( Amer) > 60 Est GFR (Non-Af Amer) > 60 Glucose 87 Calcium 9.2 Impressions: Head MRI 06/18/17 00:00 IMPRESSION: Motion artifact. No acute changes EVIDENCE OF ACUTE STROKE: NO. Chest X-Ray 06/22/17 00:00 IMPRESSION: Stable chest, findings as above. Assessment & Plan - Diagnosis (1) Altered mental state Qualifiers: Altered mental status type: unspecified Qualified Code(s): R41.82 - Altered mental status, unspecified Is this a current diagnosis for this admission?: Yes Plan: The patient may have some underlying dementia and underlying schizophrenia. He seems to now be currently at baseline. (2) Dehydration Is this a current diagnosis for this admission?: Yes Plan: Patient has been receiving normal saline solution. Resolved. (3) Dementia Qualifiers: Dementia type: unspecified type Dementia behavioral disturbance: with behavioral disturbance Qualified Code(s): F03.91 - Unspecified dementia with behavioral disturbance Is this a current diagnosis for this admission?: Yes Plan: Patient has a reported history of underlying dementia. This is coupled with a history of underlying schizophrenia. At this point it is difficult to know just how much the patient can understand. He is not oriented and speaks very little. Continue Namenda. (4) Renal failure (ARF), acute on chronic Is this a current diagnosis for this admission?: Yes Plan: Resolved. (5) Schizo NOS, subchrn/exacer Plan: Continue current medications. (6) Stridor Is this a current diagnosis for this admission?: Yes Plan: Wean prednisone. Resolved. Discontinue steroids. (7) Dysphasia Plan: The patient has gurgling sounds while he is trying to eat. Continue ground meats as per speech recommendations. (8) Hypernatremia Is this a current diagnosis for this admission?: Yes Plan: Resolved with fluids. (9) Hypokalemia Is this a current diagnosis for this admission?: Yes Plan: Replace p.o. - Time Time Spent with patient: 15-24 minutes
[2017-07-01] MEDS: HALOPERIDOL LACTATE INJ 5 MG/1 ML VIAL IV PRN (03:41)
[2017-07-01] MEDS: BUSPIRONE HCL 10 MG TABLET PO SCH ×2 (08:43→21:17)
[2017-07-01] MEDS: MEMANTINE HCL 10 MG TABLET PO SCH (10:38)
[2017-07-01] MEDS: DIVALPROEX SODIUM 125 MG CAP.SPRINK PO SCH ×2 (10:38→21:16)
[2017-07-01] MEDS: ENOXAPARIN SODIUM INJ 40 MG/0.4 ML DISP.SYRIN SUBCUT SCH (10:39)
--- NOTE | 2017-07-01 15:04 | PDOC PROGRESS REPORT ---
Subjective Progress Note for:: 07/01/17 Subjective:: There is a follow-up visit for dementia and acute renal failure. Patient is speaking today. He is sitting up in bed actively eating lunch. No acute events overnight. He denies any pain. Physical Exam Vital Signs: Temp Pulse Resp BP Pulse Ox 97.9 F 71 22 H 107/65 100 07/01/17 11:20 07/01/17 11:20 07/01/17 11:20 07/01/17 11:20 07/01/17 11:20 Intake & Output 06/30/17 07/01/17 07/02/17 06:59 06:59 06:59 Intake Total 655 365 60 Output Total 100 0 Balance 555 365 60 Weight 45.3 kg 45.7 kg GENERAL: Is a well-developed, ill-appearing -[place] male resting in bed eating and in no acute distress HEART: Regular rate and rhythm. No murmurs, rubs or gallops. LUNGS: Clear to auscultation from the anterior perspective bilaterally with equal rise and fall of the chest. Occasional cough with eating. ABDOMEN: Soft, nontender, nondistended with normoactive bowel sounds EXTREMETIES: No clubbing, cyanosis or edema. 2+ peripheral pulses bilaterally. NEURO: Awake, alert. Disoriented. Skin: The patient has a large blister on the left heel that has finally completely popped. The skin is still intact. There is a dime size lesion on the patient's left elbow as well. Results Laboratory Results: 06/26/17 06:55 06/30/17 07:24 Impressions: Head MRI 06/18/17 00:00 IMPRESSION: Motion artifact. No acute changes EVIDENCE OF ACUTE STROKE: NO. Chest X-Ray 06/22/17 00:00 IMPRESSION: Stable chest, findings as above. Assessment & Plan - Diagnosis (1) Altered mental state Qualifiers: Altered mental status type: unspecified Qualified Code(s): R41.82 - Altered mental status, unspecified Is this a current diagnosis for this admission?: Yes Plan: The patient may have some underlying dementia and underlying schizophrenia. He seems to now be currently at baseline. (2) Dehydration Is this a current diagnosis for this admission?: Yes Plan: Patient has been receiving normal saline solution. Resolved. (3) Dementia Qualifiers: Dementia type: unspecified type Dementia behavioral disturbance: with behavioral disturbance Qualified Code(s): F03.91 - Unspecified dementia with behavioral disturbance Is this a current diagnosis for this admission?: Yes Plan: Patient has a reported history of underlying dementia. This is coupled with a history of underlying schizophrenia. At this point it is difficult to know just how much the patient can understand. He is not oriented and speaks very little. Continue Namenda. (4) Renal failure (ARF), acute on chronic Is this a current diagnosis for this admission?: Yes Plan: Resolved. (5) Schizo NOS, subchrn/exacer Plan: Continue current medications. (6) Stridor Is this a current diagnosis for this admission?: Yes Plan: Wean prednisone. Resolved. Discontinue steroids. (7) Dysphasia Plan: The patient has gurgling sounds while he is trying to eat. Continue ground meats as per speech recommendations. (8) Hypernatremia Is this a current diagnosis for this admission?: Yes Plan: Resolved with fluids. (9) Hypokalemia Is this a current diagnosis for this admission?: Yes Plan: Replace p.o. - Time Time Spent with patient: 15-24 minutes Anticipated discharge: SNF
[2017-07-02 06:34] LABS: ABSOLUTE BASOPHILS # (AUTO) 0.1 10^3/uL (0.0-0.2); ABSOLUTE EOSINOPHILS # (AUTO) 0.1 10^3/uL (0.0-0.6); ABSOLUTE LYMPHOCYTES (AUTO) 1.8 10^3/uL (0.5-4.7); ABSOLUTE MONOCYTES (AUTO) 0.8 10^3/uL (0.1-1.4); ABSOLUTE NEUT (AUTO) 2.3 10^3/uL (1.7-8.2); BASOPHILS % (AUTO) 1.1 % (0-2); EOSINOPHILS % (AUTO) 1.9 % (0-6); HEMATOCRIT 33.7 % (37.9-51.0); HEMOGLOBIN 11.3 g/dL (13.5-17.0); HGB HCT DIFFERENCE 0.2; LYMPHOCYTES % (AUTO) 36.1 % (13-45); MEAN CORPUSCULAR HEMOGLOBIN 31.3 pg (27.0-33.4); MEAN CORPUSCULAR HGB CONC 33.7 g/dL (32.0-36.0); MEAN CORPUSCULAR VOLUME 93 fl (80-97); MONOCYTES % (AUTO) 15.3 % (3-13); RED BLOOD COUNT 3.63 10^6/uL (4.35-5.55); RED CELL DISTRIBUTION WIDTH 12.8 % (11.5-14.0); SEGMENTED NEUTROPHILS % (AUTO) 45.6 % (42-78)
[2017-07-02 07:13] LABS: ANION GAP 10 (5-19); BLOOD UREA NITROGEN 12 mg/dL (7-20); CALCIUM 9.2 mg/dL (8.4-10.2); CARBON DIOXIDE 32 mmol/L (22-30); CHLORIDE 103 mmol/L (98-107); CREATININE RESULT 1.19 mg/dL (0.52-1.25); GLUCOSE 83 mg/dL (75-110); MAGNESIUM 1.6 mg/dL (1.6-2.3); POTASSIUM 3.1 mmol/L (3.6-5.0); SODIUM 145.1 mmol/L (137-145)
[2017-07-02] MEDS: ENOXAPARIN SODIUM INJ 40 MG/0.4 ML DISP.SYRIN SUBCUT SCH (10:16)
[2017-07-02] MEDS: MEMANTINE HCL 10 MG TABLET PO SCH (10:17)
[2017-07-02] MEDS: DIVALPROEX SODIUM 125 MG CAP.SPRINK PO SCH ×2 (10:17→21:55)
[2017-07-02] MEDS: BUSPIRONE HCL 10 MG TABLET PO SCH ×2 (10:18→21:55)
--- NOTE | 2017-07-02 12:15 | PDOC PROGRESS REPORT ---
Subjective Progress Note for:: 07/02/17 Subjective:: Patient is sitting up eating breakfast. He denies any complaints. Physical Exam Vital Signs: Temp Pulse Resp BP Pulse Ox 97.8 F 57 L 16 93/57 L 97 07/02/17 07:20 07/02/17 07:20 07/02/17 07:20 07/02/17 07:20 07/02/17 07:20 Intake & Output 07/01/17 07/02/17 07/03/17 06:59 06:59 06:59 Intake Total 365 300 Output Total 200 Balance 365 100 Weight 45.7 kg 45.1 kg General appearance: PRESENT: no acute distress Eye exam: PRESENT: conjunctiva pink. ABSENT: scleral icterus Mouth exam: PRESENT: moist, tongue midline Neck exam: ABSENT: JVD Respiratory exam: PRESENT: clear to auscultation veronica. ABSENT: rales, rhonchi, wheezes Cardiovascular exam: PRESENT: RRR. ABSENT: diastolic murmur, rubs, systolic murmur GI/Abdominal exam: PRESENT: normal bowel sounds, soft. ABSENT: distended, guarding, mass, organolmegaly, rebound, tenderness Extremities exam: ABSENT: calf tenderness, clubbing, pedal edema Neurological exam: PRESENT: altered, awake Psychiatric exam: PRESENT: flat affect Skin exam: PRESENT: dry, intact, warm. ABSENT: cyanosis, rash Results Laboratory Results: 07/02/17 06:20 07/02/17 06:20 07/02/17 07/02/17 06:20 06:20 WBC 5.0 RBC 3.63 L Hgb 11.3 L Hct 33.7 L MCV 93 MCH 31.3 MCHC 33.7 RDW 12.8 Plt Count 223 Seg Neutrophils % 45.6 Lymphocytes % 36.1 Monocytes % 15.3 H Eosinophils % 1.9 Basophils % 1.1 Absolute Neutrophils 2.3 Absolute Lymphocytes 1.8 Absolute Monocytes 0.8 Absolute Eosinophils 0.1 Absolute Basophils 0.1 Sodium 145.1 H Potassium 3.1 L Chloride 103 Carbon Dioxide 32 H Anion Gap 10 BUN 12 Creatinine 1.19 Est GFR ( Amer) > 60 Est GFR (Non-Af Amer) > 60 Glucose 83 Calcium 9.2 Magnesium 1.6 Impressions: Head MRI 06/18/17 00:00 IMPRESSION: Motion artifact. No acute changes EVIDENCE OF ACUTE STROKE: NO. Chest X-Ray 06/22/17 00:00 IMPRESSION: Stable chest, findings as above. Assessment & Plan - Diagnosis (1) Altered mental state Qualifiers: Altered mental status type: unspecified Qualified Code(s): R41.82 - Altered mental status, unspecified Is this a current diagnosis for this admission?: Yes Plan: The patient has diagnosis of schizophrenia and dementia. The patient is more alert and eating breakfast. We are awaiting placement. (2) Abnormal chest x-ray Is this a current diagnosis for this admission?: Yes Plan: Patient has a positive PPD and an abnormal chest x-ray. The patient's TB Gold test was negative. (3) Dementia Qualifiers: Dementia type: unspecified type Dementia behavioral disturbance: with behavioral disturbance Qualified Code(s): F03.91 - Unspecified dementia with behavioral disturbance Is this a current diagnosis for this admission?: Yes Plan: Patient is awaiting placement. 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 (5) Schizophrenia Qualifiers: Schizophrenia type: unspecified Qualified Code(s): F20.9 - Schizophrenia, unspecified Is this a current diagnosis for this admission?: Yes Plan: We will give Haldol as needed. (6) Hyponatremia Is this a current diagnosis for this admission?: Yes (7) Renal failure (ARF), acute on chronic Is this a current diagnosis for this admission?: Yes Plan: Improved. Patient is taking adequate amounts in p.o. (8) Stridor Is this a current diagnosis for this admission?: Yes Plan: This has resolved with IV steroids. Continue to wean the prednisone. - Time Time Spent with patient: 25-34 minutes - Plan Summary Plan Summary: Patient will be discharged when a bed becomes available.
[2017-07-03 05:54] LABS: ANION GAP 11 (5-19); BLOOD UREA NITROGEN 15 mg/dL (7-20); CALCIUM 9.7 mg/dL (8.4-10.2); CARBON DIOXIDE 30 mmol/L (22-30); CHLORIDE 104 mmol/L (98-107); CREATININE RESULT 1.21 mg/dL (0.52-1.25); GLUCOSE 87 mg/dL (75-110); POTASSIUM 3.2 mmol/L (3.6-5.0)
[2017-07-03] MEDS: MEMANTINE HCL 10 MG TABLET PO SCH (09:53)
[2017-07-03] MEDS: BUSPIRONE HCL 10 MG TABLET PO SCH ×2 (09:53→21:49)
[2017-07-03] MEDS: ENOXAPARIN SODIUM INJ 40 MG/0.4 ML DISP.SYRIN SUBCUT SCH (09:59)
[2017-07-03] MEDS ORDERED: POTASSIUM CHLORIDE 10 MEQ TABLET.SA PO SCH (10:00)
[2017-07-03] MEDS: DIVALPROEX SODIUM 125 MG CAP.SPRINK PO SCH ×2 (10:20→21:49)
[2017-07-03] MEDS ORDERED: POTASSIUM CHLORIDE 20 MEQ/15 ML UDCUP PO ONE (11:30)
--- NOTE | 2017-07-03 13:19 | PDOC PROGRESS REPORT ---
Subjective Progress Note for:: 07/03/17 Subjective:: He denies any complaints. Physical Exam Vital Signs: Temp Pulse Resp BP Pulse Ox 97.5 F 50 L 16 97/65 L 100 07/03/17 12:08 07/03/17 12:08 07/03/17 12:08 07/03/17 12:08 07/03/17 12:08 Intake & Output 07/02/17 07/03/17 07/04/17 06:59 06:59 06:59 Intake Total 300 480 222 Output Total 200 0 Balance 100 480 222 Weight 45.1 kg 49.6 kg General appearance: PRESENT: no acute distress Eye exam: PRESENT: conjunctiva pink. ABSENT: scleral icterus Ear exam: PRESENT: normal external ear exam Mouth exam: PRESENT: moist, tongue midline Neck exam: ABSENT: JVD Respiratory exam: PRESENT: clear to auscultation veronica. ABSENT: rales, rhonchi, wheezes Cardiovascular exam: PRESENT: RRR. ABSENT: diastolic murmur, rubs, systolic murmur GI/Abdominal exam: PRESENT: normal bowel sounds, soft. ABSENT: distended, guarding, mass, organolmegaly, rebound, tenderness Extremities exam: ABSENT: calf tenderness, clubbing, pedal edema Neurological exam: PRESENT: altered, CN II-XII grossly intact. ABSENT: motor sensory deficit Psychiatric exam: PRESENT: flat affect Skin exam: PRESENT: dry, intact, warm. ABSENT: cyanosis, rash Results Laboratory Results: 07/02/17 06:20 07/03/17 05:19 07/03/17 05:19 Sodium 145.0 Potassium 3.2 L Chloride 104 Carbon Dioxide 30 Anion Gap 11 BUN 15 Creatinine 1.21 Est GFR ( Amer) > 60 Est GFR (Non-Af Amer) > 60 Glucose 87 Calcium 9.7 Impressions: Head MRI 06/18/17 00:00 IMPRESSION: Motion artifact. No acute changes EVIDENCE OF ACUTE STROKE: NO. Chest X-Ray 06/22/17 00:00 IMPRESSION: Stable chest, findings as above. Assessment & Plan - Diagnosis (1) Altered mental state Qualifiers: Altered mental status type: unspecified Qualified Code(s): R41.82 - Altered mental status, unspecified Is this a current diagnosis for this admission?: Yes Plan: The patient has diagnosis of schizophrenia and dementia. The patient continues to slowly improve. We are awaiting placement. (2) Abnormal chest x-ray Is this a current diagnosis for this admission?: Yes Plan: Patient has a positive PPD and an abnormal chest x-ray. The patient's TB Gold test was negative. (3) Dementia Qualifiers: Dementia type: unspecified type Dementia behavioral disturbance: with behavioral disturbance Qualified Code(s): F03.91 - Unspecified dementia with behavioral disturbance Is this a current diagnosis for this admission?: Yes Plan: Patient is awaiting placement. 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 (5) Schizophrenia Qualifiers: Schizophrenia type: unspecified Qualified Code(s): F20.9 - Schizophrenia, unspecified Is this a current diagnosis for this admission?: Yes Plan: We will give Haldol as needed. (6) Hyponatremia Is this a current diagnosis for this admission?: Yes (7) Renal failure (ARF), acute on chronic Is this a current diagnosis for this admission?: Yes Plan: Improved. Patient is taking adequate amounts in p.o. (8) Stridor Is this a current diagnosis for this admission?: Yes Plan: Resolved - Time Time Spent with patient: 25-34 minutes - Plan Summary Plan Summary: Awaiting placement.
[2017-07-03] MEDS: POTASSIUM CHLORIDE 20 MEQ/15 ML UDCUP PO SCH (21:49)
[2017-07-04 06:36] LABS: ANION GAP 12 (5-19); BLOOD UREA NITROGEN 17 mg/dL (7-20); CALCIUM 9.7 mg/dL (8.4-10.2); CARBON DIOXIDE 31 mmol/L (22-30); CHLORIDE 105 mmol/L (98-107); CREATININE RESULT 1.19 mg/dL (0.52-1.25); GLUCOSE 85 mg/dL (75-110); POTASSIUM 3.4 mmol/L (3.6-5.0); SODIUM 147.7 mmol/L (137-145)
[2017-07-04] MEDS: MEMANTINE HCL 10 MG TABLET PO SCH (10:45)
[2017-07-04] MEDS: DIVALPROEX SODIUM 125 MG CAP.SPRINK PO SCH ×2 (10:46→21:34)
[2017-07-04] MEDS: BUSPIRONE HCL 10 MG TABLET PO SCH ×2 (10:46→21:34)
[2017-07-04] MEDS: POTASSIUM CHLORIDE 20 MEQ/15 ML UDCUP PO SCH ×2 (10:47→21:36)
[2017-07-04] MEDS: ENOXAPARIN SODIUM INJ 40 MG/0.4 ML DISP.SYRIN SUBCUT SCH (10:47)
--- NOTE | 2017-07-04 10:58 | PDOC PROGRESS REPORT ---
Subjective Progress Note for:: 07/04/17 Subjective:: He denies any complaints. Physical Exam Vital Signs: Temp Pulse Resp BP Pulse Ox 97.8 F 55 L 19 103/67 95 07/04/17 07:14 07/04/17 07:14 07/04/17 07:14 07/04/17 07:14 07/04/17 07:14 Intake & Output 07/03/17 07/04/17 07/05/17 06:59 06:59 06:59 Intake Total 480 562 Output Total 0 2 Balance 480 560 Weight 49.6 kg 44.4 kg General appearance: PRESENT: no acute distress Eye exam: PRESENT: conjunctiva pink. ABSENT: scleral icterus Neck exam: ABSENT: JVD Respiratory exam: PRESENT: clear to auscultation veronica. ABSENT: rales, rhonchi, wheezes Cardiovascular exam: PRESENT: RRR. ABSENT: diastolic murmur, rubs, systolic murmur GI/Abdominal exam: PRESENT: normal bowel sounds, soft. ABSENT: distended, guarding, mass, organolmegaly, rebound, tenderness Extremities exam: ABSENT: calf tenderness, clubbing, pedal edema Neurological exam: PRESENT: awake, oriented to person Psychiatric exam: PRESENT: flat affect Skin exam: PRESENT: dry, intact, warm. ABSENT: cyanosis, rash Results Laboratory Results: 07/02/17 06:20 07/04/17 05:48 07/04/17 05:48 Sodium 147.7 H Potassium 3.4 L Chloride 105 Carbon Dioxide 31 H Anion Gap 12 BUN 17 Creatinine 1.19 Est GFR ( Amer) > 60 Est GFR (Non-Af Amer) > 60 Glucose 85 Calcium 9.7 Impressions: Head MRI 06/18/17 00:00 IMPRESSION: Motion artifact. No acute changes EVIDENCE OF ACUTE STROKE: NO. Chest X-Ray 06/22/17 00:00 IMPRESSION: Stable chest, findings as above. Assessment & Plan - Diagnosis (1) Altered mental state Qualifiers: Altered mental status type: unspecified Qualified Code(s): R41.82 - Altered mental status, unspecified Is this a current diagnosis for this admission?: Yes Plan: The patient has diagnosis of schizophrenia and dementia. The patient continues to slowly improve. We are awaiting placement. (2) Abnormal chest x-ray Is this a current diagnosis for this admission?: Yes Plan: Patient has a positive PPD and an abnormal chest x-ray. The patient's TB Gold test was negative. (3) Dementia Qualifiers: Dementia type: unspecified type Dementia behavioral disturbance: with behavioral disturbance Qualified Code(s): F03.91 - Unspecified dementia with behavioral disturbance Is this a current diagnosis for this admission?: Yes Plan: Patient is awaiting placement. 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 (5) Schizophrenia Qualifiers: Schizophrenia type: unspecified Qualified Code(s): F20.9 - Schizophrenia, unspecified Is this a current diagnosis for this admission?: Yes Plan: We will give Haldol as needed. (6) Hyponatremia Is this a current diagnosis for this admission?: Yes (7) Renal failure (ARF), acute on chronic Is this a current diagnosis for this admission?: Yes Plan: Improved. Patient is taking adequate amounts in p.o. (8) Stridor Is this a current diagnosis for this admission?: Yes Plan: Resolved - Plan Summary Plan Summary: Awaiting placement
[2017-07-05] MEDS: ONDANSETRON HCL INJ/PF 4 MG/2 ML SDV IV PRN (02:50)
[2017-07-05 06:17] LABS: ANION GAP 12 (5-19); BLOOD UREA NITROGEN 19 mg/dL (7-20); CALCIUM 9.5 mg/dL (8.4-10.2); CARBON DIOXIDE 28 mmol/L (22-30); CHLORIDE 107 mmol/L (98-107); CREATININE RESULT 1.14 mg/dL (0.52-1.25); POTASSIUM 4.1 mmol/L (3.6-5.0); SODIUM 147.4 mmol/L (137-145)
[2017-07-05 06:19] LABS: GLUCOSE 75 mg/dL (75-110)
[2017-07-05] MEDS: BUSPIRONE HCL 10 MG TABLET PO SCH ×2 (09:26→22:16)
[2017-07-05] MEDS: DIVALPROEX SODIUM 125 MG CAP.SPRINK PO SCH ×2 (09:27→22:16)
[2017-07-05] MEDS: POTASSIUM CHLORIDE 20 MEQ/15 ML UDCUP PO SCH ×2 (09:27→22:16)
[2017-07-05] MEDS: MEMANTINE HCL 10 MG TABLET PO SCH (09:27)
[2017-07-05] MEDS: ENOXAPARIN SODIUM INJ 40 MG/0.4 ML DISP.SYRIN SUBCUT SCH (09:28)
--- NOTE | 2017-07-05 10:20 | PDOC PROGRESS REPORT ---
Subjective Progress Note for:: 07/05/17 Subjective:: He denies any complaints. He does appear to have some extrapyramidal movements. Physical Exam Vital Signs: Temp Pulse Resp BP Pulse Ox 97.7 F 51 L 16 100/71 98 07/05/17 07:56 07/05/17 07:56 07/05/17 07:56 07/05/17 07:56 07/05/17 07:56 Intake & Output 07/04/17 07/05/17 07/06/17 06:59 06:59 06:59 Intake Total 562 140 Output Total 2 200 Balance 560 -60 Weight 44.4 kg 44.1 kg General appearance: PRESENT: no acute distress Eye exam: PRESENT: conjunctiva pink. ABSENT: scleral icterus Mouth exam: PRESENT: moist, tongue midline Neck exam: ABSENT: JVD Respiratory exam: PRESENT: clear to auscultation veronica. ABSENT: rales, rhonchi, wheezes Cardiovascular exam: PRESENT: RRR. ABSENT: diastolic murmur, rubs, systolic murmur GI/Abdominal exam: PRESENT: normal bowel sounds, soft. ABSENT: distended, guarding, mass, organolmegaly, rebound, tenderness Extremities exam: ABSENT: calf tenderness, clubbing, pedal edema Neurological exam: PRESENT: awake, other - Movement of his mouth consistent with extrapyramidal symptoms. ABSENT: motor sensory deficit Psychiatric exam: PRESENT: flat affect Skin exam: PRESENT: dry, intact, warm. ABSENT: cyanosis, rash Results Laboratory Results: 07/02/17 06:20 07/05/17 05:44 07/05/17 05:44 Sodium 147.4 H Potassium 4.1 Chloride 107 Carbon Dioxide 28 Anion Gap 12 BUN 19 Creatinine 1.14 Est GFR ( Amer) > 60 Est GFR (Non-Af Amer) > 60 Glucose 75 Calcium 9.5 Impressions: Head MRI 06/18/17 00:00 IMPRESSION: Motion artifact. No acute changes EVIDENCE OF ACUTE STROKE: NO. Chest X-Ray 06/22/17 00:00 IMPRESSION: Stable chest, findings as above. Assessment & Plan - Diagnosis (1) Altered mental state Qualifiers: Altered mental status type: unspecified Qualified Code(s): R41.82 - Altered mental status, unspecified Is this a current diagnosis for this admission?: Yes Plan: The patient has diagnosis of schizophrenia and dementia. The patient continues to improve. We are awaiting placement. (2) Abnormal chest x-ray Is this a current diagnosis for this admission?: Yes Plan: Patient has a positive PPD and an abnormal chest x-ray. The patient's TB Gold test was negative. (3) Dementia Qualifiers: Dementia type: unspecified type Dementia behavioral disturbance: with behavioral disturbance Qualified Code(s): F03.91 - Unspecified dementia with behavioral disturbance Is this a current diagnosis for this admission?: Yes Plan: Patient is awaiting placement. 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 (5) Schizophrenia Qualifiers: Schizophrenia type: unspecified Qualified Code(s): F20.9 - Schizophrenia, unspecified Is this a current diagnosis for this admission?: Yes Plan: We will give Haldol as needed. The patient does have some extrapyramidal movements and we will add on scheduled Cogentin. (6) Hyponatremia Is this a current diagnosis for this admission?: Yes (7) Renal failure (ARF), acute on chronic Is this a current diagnosis for this admission?: Yes Plan: Resolved (8) Stridor Is this a current diagnosis for this admission?: Yes Plan: Resolved - Time Time Spent with patient: 15-24 minutes - Plan Summary Plan Summary: Awaiting placement.
[2017-07-05] MEDS: BENZTROPINE MESYLATE 1 MG TABLET PO SCH (17:42)
--- NOTE | 2017-07-06 11:19 | PDOC PROGRESS REPORT ---
Subjective Progress Note for:: 07/06/17 Subjective:: He denies any complaints. Physical Exam Vital Signs: Temp Pulse Resp BP Pulse Ox 97.5 F 48 L 18 102/70 100 07/06/17 08:11 07/06/17 08:11 07/06/17 08:11 07/06/17 08:11 07/06/17 08:11 Intake & Output 07/05/17 07/06/17 07/07/17 06:59 06:59 06:59 Intake Total 140 160 Output Total 200 200 Balance -60 -40 Weight 44.1 kg 43.2 kg General appearance: PRESENT: no acute distress Eye exam: PRESENT: conjunctiva pink. ABSENT: scleral icterus Mouth exam: PRESENT: moist, tongue midline Neck exam: ABSENT: JVD Respiratory exam: PRESENT: clear to auscultation veronica. ABSENT: rales, rhonchi, wheezes Cardiovascular exam: PRESENT: RRR. ABSENT: diastolic murmur, rubs, systolic murmur GI/Abdominal exam: PRESENT: normal bowel sounds, soft. ABSENT: distended, guarding, mass, organolmegaly, rebound, tenderness Extremities exam: ABSENT: calf tenderness, clubbing, pedal edema Neurological exam: PRESENT: awake, oriented to person. ABSENT: motor sensory deficit Psychiatric exam: PRESENT: flat affect Skin exam: PRESENT: dry, intact, warm. ABSENT: cyanosis, rash Results Laboratory Results: 07/02/17 06:20 07/05/17 05:44 Impressions: Head MRI 06/18/17 00:00 IMPRESSION: Motion artifact. No acute changes EVIDENCE OF ACUTE STROKE: NO. Chest X-Ray 06/22/17 00:00 IMPRESSION: Stable chest, findings as above. Assessment & Plan - Diagnosis (1) Altered mental state Qualifiers: Altered mental status type: unspecified Qualified Code(s): R41.82 - Altered mental status, unspecified Is this a current diagnosis for this admission?: Yes Plan: The patient has diagnosis of schizophrenia and dementia. We are awaiting placement. (2) Abnormal chest x-ray Is this a current diagnosis for this admission?: Yes Plan: Patient has a positive PPD and an abnormal chest x-ray. The patient's TB Gold test was negative. (3) Dementia Qualifiers: Dementia type: unspecified type Dementia behavioral disturbance: with behavioral disturbance Qualified Code(s): F03.91 - Unspecified dementia with behavioral disturbance Is this a current diagnosis for this admission?: Yes Plan: Patient is awaiting placement. 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 (5) Schizophrenia Qualifiers: Schizophrenia type: unspecified Qualified Code(s): F20.9 - Schizophrenia, unspecified Is this a current diagnosis for this admission?: Yes Plan: We will give Haldol as needed. The patient does have some extrapyramidal movements and we will continue scheduled Cogentin. (6) Hyponatremia Is this a current diagnosis for this admission?: Yes (7) Renal failure (ARF), acute on chronic Is this a current diagnosis for this admission?: Yes Plan: Resolved (8) Stridor Is this a current diagnosis for this admission?: Yes Plan: Resolved - Time Time Spent with patient: 15-24 minutes - Plan Summary Plan Summary: We are awaiting placement
[2017-07-06] MEDS: DIVALPROEX SODIUM 125 MG CAP.SPRINK PO SCH ×2 (11:46→21:46)
[2017-07-06] MEDS: BUSPIRONE HCL 10 MG TABLET PO SCH ×2 (11:46→21:46)
[2017-07-06] MEDS: BENZTROPINE MESYLATE 1 MG TABLET PO SCH ×2 (11:47→16:58)
[2017-07-06] MEDS: POTASSIUM CHLORIDE 20 MEQ/15 ML UDCUP PO SCH ×2 (11:47→21:46)
[2017-07-06] MEDS: MEMANTINE HCL 10 MG TABLET PO SCH (11:47)
[2017-07-06] MEDS: ENOXAPARIN SODIUM INJ 40 MG/0.4 ML DISP.SYRIN SUBCUT SCH (11:48)
[2017-07-07] MEDS: MEMANTINE HCL 10 MG TABLET PO SCH (10:20)
[2017-07-07] MEDS: BENZTROPINE MESYLATE 1 MG TABLET PO SCH ×2 (10:21→19:04)
[2017-07-07] MEDS: DIVALPROEX SODIUM 125 MG CAP.SPRINK PO SCH ×2 (10:21→21:07)
[2017-07-07] MEDS: BUSPIRONE HCL 10 MG TABLET PO SCH ×2 (10:21→21:07)
[2017-07-07] MEDS: POTASSIUM CHLORIDE 20 MEQ/15 ML UDCUP PO SCH ×2 (10:22→21:07)
[2017-07-07] MEDS: ENOXAPARIN SODIUM INJ 40 MG/0.4 ML DISP.SYRIN SUBCUT SCH (10:22)
--- NOTE | 2017-07-07 11:23 | PDOC PROGRESS REPORT ---
Subjective Progress Note for:: 07/07/17 Subjective:: He denies any complaints. He has had some small episodes of emesis. Physical Exam Vital Signs: Temp Pulse Resp BP Pulse Ox 97.7 F 59 L 18 83/54 L 98 07/07/17 07:40 07/07/17 07:40 07/07/17 07:40 07/07/17 07:40 07/07/17 07:40 Intake & Output 07/06/17 07/07/17 07/08/17 06:59 06:59 06:59 Intake Total 160 460 Output Total 200 Balance -40 460 Weight 43.2 kg 41.6 kg General appearance: PRESENT: no acute distress Eye exam: PRESENT: conjunctiva pink. ABSENT: scleral icterus Mouth exam: PRESENT: moist, tongue midline Neck exam: ABSENT: JVD Respiratory exam: PRESENT: clear to auscultation veronica. ABSENT: rales, rhonchi, wheezes Cardiovascular exam: PRESENT: RRR. ABSENT: diastolic murmur, rubs, systolic murmur GI/Abdominal exam: PRESENT: normal bowel sounds, soft. ABSENT: distended, guarding, mass, organolmegaly, rebound, tenderness Extremities exam: ABSENT: calf tenderness, clubbing, full ROM, pedal edema Neurological exam: PRESENT: awake. ABSENT: motor sensory deficit Psychiatric exam: PRESENT: flat affect Skin exam: PRESENT: dry, intact, warm. ABSENT: cyanosis, rash Results Laboratory Results: 07/02/17 06:20 07/05/17 05:44 Impressions: Head MRI 06/18/17 00:00 IMPRESSION: Motion artifact. No acute changes EVIDENCE OF ACUTE STROKE: NO. Chest X-Ray 06/22/17 00:00 IMPRESSION: Stable chest, findings as above. Assessment & Plan - Diagnosis (1) Altered mental state Qualifiers: Altered mental status type: unspecified Qualified Code(s): R41.82 - Altered mental status, unspecified Is this a current diagnosis for this admission?: Yes Plan: The patient has diagnosis of schizophrenia and dementia. We are awaiting placement. (2) Abnormal chest x-ray Is this a current diagnosis for this admission?: Yes Plan: Patient has a positive PPD and an abnormal chest x-ray. The patient's TB Gold test was negative. (3) Dementia Qualifiers: Dementia type: unspecified type Dementia behavioral disturbance: with behavioral disturbance Qualified Code(s): F03.91 - Unspecified dementia with behavioral disturbance Is this a current diagnosis for this admission?: Yes Plan: Patient is awaiting placement. 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 (5) Schizophrenia Qualifiers: Schizophrenia type: unspecified Qualified Code(s): F20.9 - Schizophrenia, unspecified Is this a current diagnosis for this admission?: Yes Plan: We will give Haldol as needed. The patient does have some extrapyramidal movements and we will continue scheduled Cogentin. (6) Hyponatremia Is this a current diagnosis for this admission?: Yes (7) Renal failure (ARF), acute on chronic Is this a current diagnosis for this admission?: Yes Plan: Resolved (8) Stridor Is this a current diagnosis for this admission?: Yes Plan: Resolved (9) Vomiting Is this a current diagnosis for this admission?: Yes Plan: We will try him on some Reglan to see if that will improve. We will watch to make certain that his extrapyramidal movements do not become worse. - Time Time Spent with patient: 25-34 minutes - Inpatient Certification Medical Necessity: Need Close Monitoring Due to Risk of Patient Decompensation - Plan Summary Plan Summary: Awaiting placement.
[2017-07-07] MEDS: METOCLOPRAMIDE HCL INJ/PF 10 MG/2 ML SDV IV SCH ×2 (12:09→19:04)
[2017-07-07] MEDS ORDERED: LACTULOSE SYRUP 20 GM/30 ML UDCUP PO PRN (15:33)
[2017-07-08] MEDS: METOCLOPRAMIDE HCL INJ/PF 10 MG/2 ML SDV IV SCH ×5 (00:45→23:55)
[2017-07-08] MEDS: BUSPIRONE HCL 10 MG TABLET PO SCH ×2 (08:39→21:13)
--- NOTE | 2017-07-08 10:34 | PDOC PROGRESS REPORT ---
Subjective Progress Note for:: 07/08/17 Subjective:: He denies any complaints. He has had some small episodes of emesis. Physical Exam Vital Signs: Temp Pulse Resp BP Pulse Ox 97.8 F 66 18 101/64 100 07/08/17 07:24 07/08/17 07:24 07/08/17 07:24 07/08/17 07:24 07/08/17 07:24 Intake & Output 07/07/17 07/08/17 07/09/17 06:59 06:59 06:59 Intake Total 460 738 Output Total 100 Balance 460 638 Weight 41.6 kg 42.9 kg General appearance: PRESENT: no acute distress Eye exam: PRESENT: conjunctiva pink. ABSENT: scleral icterus Mouth exam: PRESENT: moist, tongue midline Neck exam: ABSENT: JVD Respiratory exam: PRESENT: clear to auscultation veronica. ABSENT: rales, rhonchi, wheezes Cardiovascular exam: PRESENT: RRR. ABSENT: diastolic murmur, rubs, systolic murmur GI/Abdominal exam: PRESENT: normal bowel sounds, soft. ABSENT: distended, guarding, mass, organolmegaly, rebound, tenderness Extremities exam: ABSENT: calf tenderness, clubbing, pedal edema Neurological exam: PRESENT: awake, CN II-XII grossly intact. ABSENT: motor sensory deficit Psychiatric exam: PRESENT: flat affect Skin exam: PRESENT: dry, intact, warm. ABSENT: cyanosis, rash Results Laboratory Results: 07/02/17 06:20 07/05/17 05:44 Impressions: Head MRI 06/18/17 00:00 IMPRESSION: Motion artifact. No acute changes EVIDENCE OF ACUTE STROKE: NO. Chest X-Ray 06/22/17 00:00 IMPRESSION: Stable chest, findings as above. Assessment & Plan - Diagnosis (1) Altered mental state Qualifiers: Altered mental status type: unspecified Qualified Code(s): R41.82 - Altered mental status, unspecified Is this a current diagnosis for this admission?: Yes Plan: The patient has diagnosis of schizophrenia and dementia. We are awaiting placement. (2) Abnormal chest x-ray Is this a current diagnosis for this admission?: Yes Plan: Patient has a positive PPD and an abnormal chest x-ray. The patient's TB Gold test was negative. (3) Dementia Qualifiers: Dementia type: unspecified type Dementia behavioral disturbance: with behavioral disturbance Qualified Code(s): F03.91 - Unspecified dementia with behavioral disturbance Is this a current diagnosis for this admission?: Yes Plan: Patient is awaiting placement. 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 (5) Schizophrenia Qualifiers: Schizophrenia type: unspecified Qualified Code(s): F20.9 - Schizophrenia, unspecified Is this a current diagnosis for this admission?: Yes Plan: We will give Haldol as needed. The patient does have some extrapyramidal movements and we will continue scheduled Cogentin. (6) Hyponatremia Is this a current diagnosis for this admission?: Yes (7) Renal failure (ARF), acute on chronic Is this a current diagnosis for this admission?: Yes Plan: Resolved (8) Stridor Is this a current diagnosis for this admission?: Yes Plan: Resolved (9) Vomiting Is this a current diagnosis for this admission?: Yes Plan: Started on Reglan with some mild improvement in his nausea and vomiting. He may have a component of gastroparesis. We will watch to make certain that his extrapyramidal movements do not become worse. - Time Time Spent with patient: 25-34 minutes - Plan Summary Plan Summary: We are awaiting placement.
[2017-07-08] MEDS: POTASSIUM CHLORIDE 20 MEQ/15 ML UDCUP PO SCH ×2 (10:47→21:13)
[2017-07-08] MEDS: BENZTROPINE MESYLATE 1 MG TABLET PO SCH ×2 (10:47→18:37)
[2017-07-08] MEDS: DIVALPROEX SODIUM 125 MG CAP.SPRINK PO SCH ×2 (10:48→21:13)
[2017-07-08] MEDS: MEMANTINE HCL 10 MG TABLET PO SCH (10:49)
[2017-07-08] MEDS: ENOXAPARIN SODIUM INJ 40 MG/0.4 ML DISP.SYRIN SUBCUT SCH (10:50)
[2017-07-09] MEDS: METOCLOPRAMIDE HCL INJ/PF 10 MG/2 ML SDV IV SCH ×3 (05:03→17:22)
[2017-07-09 06:44] LABS: ABSOLUTE EOSINOPHILS # (AUTO) 0.1 10^3/uL (0.0-0.6); ABSOLUTE LYMPHOCYTES (AUTO) 1.1 10^3/uL (0.5-4.7); ABSOLUTE MONOCYTES (AUTO) 0.7 10^3/uL (0.1-1.4); BASOPHILS % (AUTO) 0.3 % (0-2); EOSINOPHILS % (AUTO) 0.9 % (0-6); HEMATOCRIT 37.9 % (37.9-51.0); HGB HCT DIFFERENCE 1.1; LYMPHOCYTES % (AUTO) 12.7 % (13-45); MEAN CORPUSCULAR HGB CONC 34.4 g/dL (32.0-36.0); MEAN CORPUSCULAR VOLUME 93 fl (80-97); MONOCYTES % (AUTO) 7.9 % (3-13); RED BLOOD COUNT 4.07 10^6/uL (4.35-5.55); RED CELL DISTRIBUTION WIDTH 13.3 % (11.5-14.0); SEGMENTED NEUTROPHILS % (AUTO) 78.2 % (42-78); WHITE BLOOD COUNT 8.9 10^3/uL (4.0-10.5)
[2017-07-09 07:09] LABS: ANION GAP 13 (5-19); BLOOD UREA NITROGEN 18 mg/dL (7-20); CALCIUM 10.2 mg/dL (8.4-10.2); CARBON DIOXIDE 29 mmol/L (22-30); CHLORIDE 103 mmol/L (98-107); CREATININE RESULT 1.32 mg/dL (0.52-1.25); GLUCOSE 80 mg/dL (75-110); POTASSIUM 3.9 mmol/L (3.6-5.0); SODIUM 145.1 mmol/L (137-145)
[2017-07-09] MEDS: DIVALPROEX SODIUM 125 MG CAP.SPRINK PO SCH ×2 (09:06→22:20)
[2017-07-09] MEDS: MEMANTINE HCL 10 MG TABLET PO SCH (09:06)
[2017-07-09] MEDS: POTASSIUM CHLORIDE 20 MEQ/15 ML UDCUP PO SCH ×2 (09:06→22:19)
[2017-07-09] MEDS: BENZTROPINE MESYLATE 1 MG TABLET PO SCH ×2 (09:07→17:23)
[2017-07-09] MEDS: ENOXAPARIN SODIUM INJ 40 MG/0.4 ML DISP.SYRIN SUBCUT SCH (09:07)
[2017-07-09] MEDS: BUSPIRONE HCL 10 MG TABLET PO SCH ×2 (09:07→22:20)
--- NOTE | 2017-07-09 17:34 | PDOC PROGRESS REPORT ---
Subjective Subjective:: There is a follow-up visit for dementia and acute renal failure. No acute events overnight. The patient really is not answering many questions today. Reason For Visit: AMS PULMONARY LESION PPD POSITIVE Physical Exam Vital Signs: Temp Pulse Resp BP Pulse Ox 98.1 F 63 16 104/69 94 07/09/17 11:33 07/09/17 11:33 07/09/17 11:33 07/09/17 11:33 07/09/17 11:33 Intake & Output 07/08/17 07/09/17 07/10/17 06:59 06:59 06:59 Intake Total 738 230 0 Output Total 100 Balance 638 230 0 Weight 42.9 kg GENERAL: Is a well-developed, thin -[place] male resting in his recliner in no acute distress HEART: Regular rate and rhythm. No murmurs, rubs or gallops. LUNGS: Clear to auscultation bilaterally with equal rise and fall of the chest. ABDOMEN: Soft, nontender, nondistended with normoactive bowel sounds EXTREMETIES: No clubbing, cyanosis or edema. 2+ peripheral pulses bilaterally. NEURO: Awake, alert. Skin: Bandages on bilateral heels. Results Laboratory Results: 07/09/17 05:16 07/09/17 05:16 07/09/17 07/09/17 05:16 05:16 WBC 8.9 RBC 4.07 L Hgb 13.0 L Hct 37.9 MCV 93 MCH 32.0 MCHC 34.4 RDW 13.3 Plt Count 247 Seg Neutrophils % 78.2 H Lymphocytes % 12.7 L Monocytes % 7.9 Eosinophils % 0.9 Basophils % 0.3 Absolute Neutrophils 7.0 Absolute Lymphocytes 1.1 Absolute Monocytes 0.7 Absolute Eosinophils 0.1 Absolute Basophils 0.0 Sodium 145.1 H Potassium 3.9 Chloride 103 Carbon Dioxide 29 Anion Gap 13 BUN 18 Creatinine 1.32 H Est GFR ( Amer) > 60 Est GFR (Non-Af Amer) 55 L Glucose 80 Calcium 10.2 Impressions: Head MRI 06/18/17 00:00 IMPRESSION: Motion artifact. No acute changes EVIDENCE OF ACUTE STROKE: NO. Chest X-Ray 06/22/17 00:00 IMPRESSION: Stable chest, findings as above. Assessment & Plan - Diagnosis (1) Altered mental state Qualifiers: Altered mental status type: unspecified Qualified Code(s): R41.82 - Altered mental status, unspecified Is this a current diagnosis for this admission?: Yes Plan: The patient may have some underlying dementia and underlying schizophrenia. He seems to now be currently at baseline. (2) Dehydration Is this a current diagnosis for this admission?: Yes Plan: Resolved. (3) Dementia Qualifiers: Dementia type: unspecified type Dementia behavioral disturbance: with behavioral disturbance Qualified Code(s): F03.91 - Unspecified dementia with behavioral disturbance Is this a current diagnosis for this admission?: Yes Plan: Patient has a reported history of underlying dementia. This is coupled with a history of underlying schizophrenia. At this point it is difficult to know just how much the patient can understand. He is not oriented and speaks very little. Continue Namenda. (4) Renal failure (ARF), acute on chronic Is this a current diagnosis for this admission?: Yes Plan: Resolved. (5) Schizo NOS, subchrn/exacer Plan: Continue current medications. (6) Stridor Is this a current diagnosis for this admission?: Yes Plan: Resolved. (7) Dysphasia Plan: The patient has gurgling sounds while he is trying to eat. Continue ground meats as per speech recommendations. (8) Hypernatremia Is this a current diagnosis for this admission?: Yes Plan: Resolved with fluids. (9) Hypokalemia Is this a current diagnosis for this admission?: Yes Plan: Replace p.o. - Time Time Spent with patient: 15-24 minutes
[2017-07-10] MEDS: METOCLOPRAMIDE HCL INJ/PF 10 MG/2 ML SDV IV SCH ×5 (00:31→23:03)
[2017-07-10] MEDS: MEMANTINE HCL 10 MG TABLET PO SCH (10:26)
[2017-07-10] MEDS: BENZTROPINE MESYLATE 1 MG TABLET PO SCH ×2 (10:26→18:02)
[2017-07-10] MEDS: POTASSIUM CHLORIDE 20 MEQ/15 ML UDCUP PO SCH ×2 (10:31→21:55)
[2017-07-10] MEDS: DIVALPROEX SODIUM 125 MG CAP.SPRINK PO SCH ×2 (10:31→21:55)
[2017-07-10] MEDS: ENOXAPARIN SODIUM INJ 40 MG/0.4 ML DISP.SYRIN SUBCUT SCH (10:32)
[2017-07-10] MEDS: BUSPIRONE HCL 10 MG TABLET PO SCH ×2 (10:33→21:55)
--- NOTE | 2017-07-10 13:49 | PDOC PROGRESS REPORT ---
Subjective Progress Note for:: 07/10/17 Subjective:: There is a follow-up visit for dementia and acute renal failure. No acute events overnight. The patient really is not answering many questions today. Reason For Visit: AMS PULMONARY LESION PPD POSITIVE Physical Exam Vital Signs: Temp Pulse Resp BP Pulse Ox 97.9 F 71 16 91/51 L 91 L 07/10/17 11:37 07/10/17 11:37 07/10/17 11:37 07/10/17 11:37 07/10/17 11:37 Intake & Output 07/09/17 07/10/17 07/11/17 06:59 06:59 06:59 Intake Total 230 8 118 Balance 230 8 118 Weight 42.1 kg GENERAL: Is a well-developed, thin -[place] male resting in his bed in no acute distress HEART: Regular rate and rhythm. No murmurs, rubs or gallops. LUNGS: Diminished at the bases bilaterally with equal rise and fall of the chest. ABDOMEN: Soft, nontender, nondistended with normoactive bowel sounds EXTREMETIES: No clubbing, cyanosis or edema. 2+ peripheral pulses bilaterally. NEURO: Awake, alert. The patient continues to hold his saliva in his mouth. Skin: Bandages on the left heel. The right heel has a blister formed. Results Laboratory Results: 07/09/17 05:16 07/09/17 05:16 Impressions: Head MRI 06/18/17 00:00 IMPRESSION: Motion artifact. No acute changes EVIDENCE OF ACUTE STROKE: NO. Chest X-Ray 06/22/17 00:00 IMPRESSION: Stable chest, findings as above. Assessment & Plan - Diagnosis (1) Altered mental state Qualifiers: Altered mental status type: unspecified Qualified Code(s): R41.82 - Altered mental status, unspecified Is this a current diagnosis for this admission?: Yes Plan: The patient may have some underlying dementia and underlying schizophrenia. He seems to now be currently at baseline. (2) Dehydration Is this a current diagnosis for this admission?: Yes Plan: Resolved. (3) Dementia Qualifiers: Dementia type: unspecified type Dementia behavioral disturbance: with behavioral disturbance Qualified Code(s): F03.91 - Unspecified dementia with behavioral disturbance Is this a current diagnosis for this admission?: Yes Plan: Patient has a reported history of underlying dementia. This is coupled with a history of underlying schizophrenia. At this point it is difficult to know just how much the patient can understand. He is not oriented and speaks very little. Continue Namenda. (4) Renal failure (ARF), acute on chronic Is this a current diagnosis for this admission?: Yes Plan: Resolved. (5) Schizo NOS, subchrn/exacer Plan: Continue current medications. (6) Stridor Is this a current diagnosis for this admission?: Yes Plan: Resolved. (7) Dysphasia Plan: The patient has gurgling sounds while he is trying to eat. Continue ground meats as per speech recommendations. He continues to hold saliva in his mouth. He spits out white frothy saliva throughout the day. (8) Hypernatremia Is this a current diagnosis for this admission?: Yes Plan: Resolved with fluids. (9) Hypokalemia Is this a current diagnosis for this admission?: Yes Plan: Replace p.o. - Time Time Spent with patient: 15-24 minutes
[2017-07-11 05:11] LABS: ABSOLUTE EOSINOPHILS # (AUTO) 0.1 10^3/uL (0.0-0.6); ABSOLUTE LYMPHOCYTES (AUTO) 1.1 10^3/uL (0.5-4.7); ABSOLUTE MONOCYTES (AUTO) 0.5 10^3/uL (0.1-1.4); ABSOLUTE NEUT (AUTO) 4.6 10^3/uL (1.7-8.2); BASOPHILS % (AUTO) 0.4 % (0-2); EOSINOPHILS % (AUTO) 1.3 % (0-6); HEMATOCRIT 38.3 % (37.9-51.0); HGB HCT DIFFERENCE 0.7; LYMPHOCYTES % (AUTO) 16.8 % (13-45); MEAN CORPUSCULAR HEMOGLOBIN 31.9 pg (27.0-33.4); MEAN CORPUSCULAR HGB CONC 33.8 g/dL (32.0-36.0); MEAN CORPUSCULAR VOLUME 94 fl (80-97); MONOCYTES % (AUTO) 8.5 % (3-13); RED BLOOD COUNT 4.06 10^6/uL (4.35-5.55); WHITE BLOOD COUNT 6.3 10^3/uL (4.0-10.5)
[2017-07-11 05:23] LABS: ANION GAP 12 (5-19); BLOOD UREA NITROGEN 18 mg/dL (7-20); CALCIUM 10.2 mg/dL (8.4-10.2); CARBON DIOXIDE 30 mmol/L (22-30); CHLORIDE 106 mmol/L (98-107); CREATININE RESULT 1.32 mg/dL (0.52-1.25); GLUCOSE 86 mg/dL (75-110); MAGNESIUM 1.7 mg/dL (1.6-2.3); SODIUM 147.9 mmol/L (137-145)
[2017-07-11] MEDS: METOCLOPRAMIDE HCL INJ/PF 10 MG/2 ML SDV IV SCH ×4 (05:44→23:11)
[2017-07-11] MEDS: ENOXAPARIN SODIUM INJ 40 MG/0.4 ML DISP.SYRIN SUBCUT SCH (11:04)
[2017-07-11] MEDS: POTASSIUM CHLORIDE 20 MEQ/15 ML UDCUP PO SCH ×2 (11:05→21:29)
[2017-07-11] MEDS: BUSPIRONE HCL 10 MG TABLET PO SCH ×2 (11:05→21:29)
[2017-07-11] MEDS: MEMANTINE HCL 10 MG TABLET PO SCH (11:05)
[2017-07-11] MEDS: DIVALPROEX SODIUM 125 MG CAP.SPRINK PO SCH ×2 (11:05→21:29)
[2017-07-11] MEDS: BENZTROPINE MESYLATE 1 MG TABLET PO SCH ×2 (11:05→18:48)
--- NOTE | 2017-07-11 15:18 | PDOC PROGRESS REPORT ---
Subjective Progress Note for:: 07/11/17 Subjective:: No new events overnight. Sitter remains in the room. Patient remains confused and nonconversant, meaning he will mumble a few responses when the mood strikes him. Reason For Visit: AMS PULMONARY LESION PPD POSITIVE; dementia; acute renal failure; dysphasia Physical Exam Vital Signs: Temp Pulse Resp BP Pulse Ox 98.2 F 71 16 95/63 L 97 07/11/17 11:27 07/11/17 11:27 07/11/17 11:27 07/11/17 11:27 07/11/17 11:27 Intake & Output 07/10/17 07/11/17 07/12/17 06:59 06:59 06:59 Intake Total 8 538 Balance 8 538 Weight 42.1 kg 42 kg General appearance: PRESENT: no acute distress, well-developed, well-nourished Eye exam: ABSENT: conjunctival injection, scleral icterus Mouth exam: PRESENT: moist Respiratory exam: PRESENT: decreased breath sounds - Basis. ABSENT: accessory muscle use, rhonchi, wheezes Cardiovascular exam: PRESENT: RRR. ABSENT: systolic murmur GI/Abdominal exam: PRESENT: normal bowel sounds, soft. ABSENT: tenderness Extremities exam: ABSENT: pedal edema, tenderness Psychiatric exam: PRESENT: flat affect Skin exam: PRESENT: warm Results Laboratory Results: 07/11/17 04:06 07/11/17 04:06 07/11/17 07/11/17 04:06 04:06 WBC 6.3 RBC 4.06 L Hgb 13.0 L Hct 38.3 MCV 94 MCH 31.9 MCHC 33.8 RDW 13.0 Plt Count 202 Seg Neutrophils % 73.0 Lymphocytes % 16.8 Monocytes % 8.5 Eosinophils % 1.3 Basophils % 0.4 Absolute Neutrophils 4.6 Absolute Lymphocytes 1.1 Absolute Monocytes 0.5 Absolute Eosinophils 0.1 Absolute Basophils 0.0 Sodium 147.9 H Potassium 5.0 Chloride 106 Carbon Dioxide 30 Anion Gap 12 BUN 18 Creatinine 1.32 H Est GFR ( Amer) > 60 Est GFR (Non-Af Amer) 55 L Glucose 86 Calcium 10.2 Magnesium 1.7 Assessment & Plan - Diagnosis (1) Altered mental state Qualifiers: Altered mental status type: unspecified Qualified Code(s): R41.82 - Altered mental status, unspecified Is this a current diagnosis for this admission?: Yes (2) Dehydration Is this a current diagnosis for this admission?: Yes (3) Dementia Qualifiers: Dementia type: unspecified type Dementia behavioral disturbance: with behavioral disturbance Qualified Code(s): F03.91 - Unspecified dementia with behavioral disturbance Is this a current diagnosis for this admission?: Yes (4) Hypernatremia Is this a current diagnosis for this admission?: Yes (5) Stridor Is this a current diagnosis for this admission?: Yes - Time Time Spent with patient: 15-24 minutes - Plan Summary Plan Summary: Continue current level care; awaiting placement.
[2017-07-12] MEDS: HALOPERIDOL LACTATE INJ 5 MG/1 ML VIAL IV PRN (04:18)
[2017-07-12] MEDS: METOCLOPRAMIDE HCL INJ/PF 10 MG/2 ML SDV IV SCH ×4 (05:01→23:57)
[2017-07-12] MEDS: DIVALPROEX SODIUM 125 MG CAP.SPRINK PO SCH ×2 (10:29→21:43)
[2017-07-12] MEDS: BENZTROPINE MESYLATE 1 MG TABLET PO SCH ×2 (10:31→18:17)
[2017-07-12] MEDS: ENOXAPARIN SODIUM INJ 40 MG/0.4 ML DISP.SYRIN SUBCUT SCH (10:31)
[2017-07-12] MEDS: BUSPIRONE HCL 10 MG TABLET PO SCH ×2 (10:31→21:43)
[2017-07-12] MEDS: MEMANTINE HCL 10 MG TABLET PO SCH (10:31)
[2017-07-12] MEDS: POTASSIUM CHLORIDE 20 MEQ/15 ML UDCUP PO SCH ×2 (10:32→21:43)
--- NOTE | 2017-07-12 15:38 | PDOC PROGRESS REPORT ---
Subjective Progress Note for:: 07/12/17 Subjective:: There is a follow-up visit for dementia and acute renal failure. No acute events overnight. The patient really is not answering many questions today. He allows me to pull the blankets down from over his head but insists on recovering his head during the interview. Reason For Visit: AMS PULMONARY LESION PPD POSITIVE Physical Exam Vital Signs: Temp Pulse Resp BP Pulse Ox 97.5 F 73 16 90/68 L 99 07/12/17 12:00 07/12/17 12:00 07/12/17 12:00 07/12/17 12:00 07/12/17 12:00 Intake & Output 07/11/17 07/12/17 07/13/17 06:59 06:59 06:59 Intake Total 538 900 Output Total 600 Balance 538 300 Weight 42 kg 42 kg GENERAL: Is a well-developed, thin -[place] male resting in his bed in no acute distress HEART: Regular rate and rhythm. No murmurs, rubs or gallops. LUNGS: Diminished at the bases bilaterally with equal rise and fall of the chest. ABDOMEN: Soft, nontender, nondistended with normoactive bowel sounds EXTREMETIES: No clubbing, cyanosis or edema. 2+ peripheral pulses bilaterally. NEURO: Awake, alert. The patient continues to hold his saliva in his mouth. Skin: Bandages on the left heel. The right heel has a blister formed. Results Laboratory Results: 07/11/17 04:06 07/11/17 04:06 Impressions: Head MRI 06/18/17 00:00 IMPRESSION: Motion artifact. No acute changes EVIDENCE OF ACUTE STROKE: NO. Chest X-Ray 06/22/17 00:00 IMPRESSION: Stable chest, findings as above. Assessment & Plan - Diagnosis (1) Altered mental state Qualifiers: Altered mental status type: unspecified Qualified Code(s): R41.82 - Altered mental status, unspecified Is this a current diagnosis for this admission?: Yes Plan: The patient may have some underlying dementia and underlying schizophrenia. He seems to now be currently at baseline. (2) Dehydration Is this a current diagnosis for this admission?: Yes Plan: Resolved. (3) Dementia Qualifiers: Dementia type: unspecified type Dementia behavioral disturbance: with behavioral disturbance Qualified Code(s): F03.91 - Unspecified dementia with behavioral disturbance Is this a current diagnosis for this admission?: Yes Plan: Patient has a reported history of underlying dementia. This is coupled with a history of underlying schizophrenia. At this point it is difficult to know just how much the patient can understand. He is not oriented and speaks very little. The patient will likely need senior care facility for at least the next 30 days to see if he will get stronger and be able to assist in caring for himself. Continue Namenda. (4) Renal failure (ARF), acute on chronic Is this a current diagnosis for this admission?: Yes Plan: Resolved. (5) Schizo NOS, subchrn/exacer Plan: Continue current medications. (6) Stridor Is this a current diagnosis for this admission?: Yes Plan: Resolved. (7) Dysphasia Plan: The patient has gurgling sounds while he is trying to eat. Continue ground meats as per speech recommendations. He continues to hold saliva in his mouth. He spits out white frothy saliva throughout the day. (8) Hypernatremia Is this a current diagnosis for this admission?: Yes Plan: Resolved with fluids. (9) Hypokalemia Is this a current diagnosis for this admission?: Yes Plan: Replace p.o. - Time Time Spent with patient: 15-24 minutes
[2017-07-12] MEDS: ONDANSETRON HCL INJ/PF 4 MG/2 ML SDV IV PRN (21:46)
[2017-07-13] MEDS: METOCLOPRAMIDE HCL INJ/PF 10 MG/2 ML SDV IV SCH ×3 (06:06→17:45)
[2017-07-13] MEDS: MEMANTINE HCL 10 MG TABLET PO SCH (11:34)
[2017-07-13] MEDS: BUSPIRONE HCL 10 MG TABLET PO SCH ×2 (11:34→22:25)
[2017-07-13] MEDS: POTASSIUM CHLORIDE 20 MEQ/15 ML UDCUP PO SCH ×2 (11:35→22:25)
[2017-07-13] MEDS: BENZTROPINE MESYLATE 1 MG TABLET PO SCH ×2 (11:35→17:46)
[2017-07-13] MEDS: ENOXAPARIN SODIUM INJ 40 MG/0.4 ML DISP.SYRIN SUBCUT SCH (11:36)
[2017-07-13] MEDS: DIVALPROEX SODIUM 125 MG CAP.SPRINK PO SCH ×2 (11:36→22:25)
[2017-07-13] MEDS ORDERED: DEXTROSE 5%-WATER 1000 ML 1,000 ML IV ONE (14:07)
--- NOTE | 2017-07-13 14:17 | PDOC PROGRESS REPORT ---
Subjective Progress Note for:: 07/13/17 Subjective:: Nursing states that pt is stable. Nursing states that pt would not take his medications for her. Reason For Visit: AMS PULMONARY LESION PPD POSITIVE Physical Exam Vital Signs: Temp Pulse Resp BP Pulse Ox 98.3 F 99 18 86/59 L 93 07/13/17 11:55 07/13/17 11:55 07/13/17 11:55 07/13/17 11:55 07/13/17 11:55 Intake & Output 07/12/17 07/13/17 07/14/17 06:59 06:59 06:59 Intake Total 900 590 Output Total 600 600 Balance 300 -10 Weight 42 kg 42 kg General appearance: PRESENT: no acute distress, thin Head exam: PRESENT: atraumatic, normocephalic Eye exam: PRESENT: conjunctiva pink, EOMI, PERRLA. ABSENT: scleral icterus Ear exam: PRESENT: normal external ear exam Mouth exam: PRESENT: moist, tongue midline Neck exam: ABSENT: carotid bruit, JVD, lymphadenopathy, thyromegaly Respiratory exam: PRESENT: clear to auscultation veronica. ABSENT: rales, rhonchi, wheezes Cardiovascular exam: PRESENT: RRR. ABSENT: diastolic murmur, rubs, systolic murmur Pulses: PRESENT: normal dorsalis pedis pul Vascular exam: PRESENT: normal capillary refill GI/Abdominal exam: PRESENT: normal bowel sounds, soft. ABSENT: distended, guarding, mass, organolmegaly, rebound, tenderness Rectal exam: PRESENT: deferred Extremities exam: PRESENT: full ROM. ABSENT: calf tenderness, clubbing, pedal edema Neurological exam: PRESENT: alert, awake, oriented to person, oriented to place , oriented to time, oriented to situation, CN II-XII grossly intact. ABSENT: motor sensory deficit Skin exam: PRESENT: dry, intact, warm. ABSENT: cyanosis, rash Results Laboratory Results: 07/11/17 04:06 07/11/17 04:06 Impressions: Head MRI 06/18/17 00:00 IMPRESSION: Motion artifact. No acute changes EVIDENCE OF ACUTE STROKE: NO. Chest X-Ray 06/22/17 00:00 IMPRESSION: Stable chest, findings as above. Assessment & Plan - Diagnosis (1) Altered mental state Qualifiers: Altered mental status type: unspecified Qualified Code(s): R41.82 - Altered mental status, unspecified Is this a current diagnosis for this admission?: Yes Plan: Will continue tomorrow. (2) Dehydration Is this a current diagnosis for this admission?: Yes Plan: Will Give 1 liter of D5W (3) Dementia Qualifiers: Dementia type: unspecified type Dementia behavioral disturbance: with behavioral disturbance Qualified Code(s): F03.91 - Unspecified dementia with behavioral disturbance Is this a current diagnosis for this admission?: Yes Plan: Will continue to monitor. Will continue Namenda. (4) Dysphasia Is this a current diagnosis for this admission?: Yes Plan: Will continue ground meats as per speech. (5) Hypernatremia Is this a current diagnosis for this admission?: Yes Plan: Will give D5W bolus (6) Renal failure (ARF), acute on chronic Is this a current diagnosis for this admission?: Yes Plan: Secondary to Dehydration: Will give D5W bolus. Will check Labs in am. (7) Schizo NOS, subchrn/exacer Is this a current diagnosis for this admission?: Yes Plan: continue to monitor. (8) Stridor Is this a current diagnosis for this admission?: Yes Plan: Resolved. - Time Time Spent with patient: 15-24 minutes
[2017-07-14] MEDS: METOCLOPRAMIDE HCL INJ/PF 10 MG/2 ML SDV IV SCH ×5 (00:12→23:46)
[2017-07-14 05:12] LABS: HEMATOCRIT 34.7 % (37.9-51.0); HGB HCT DIFFERENCE 1.3; MEAN CORPUSCULAR HEMOGLOBIN 32.1 pg (27.0-33.4); MEAN CORPUSCULAR HGB CONC 34.5 g/dL (32.0-36.0); MEAN CORPUSCULAR VOLUME 93 fl (80-97); RED BLOOD COUNT 3.74 10^6/uL (4.35-5.55); RED CELL DISTRIBUTION WIDTH 12.7 % (11.5-14.0); WHITE BLOOD COUNT 7.3 10^3/uL (4.0-10.5)
[2017-07-14 05:45] LABS: ALANINE AMINOTRANSFERASE 23 U/L (21-72); ALKALINE PHOSPHATASE 51 U/L (38-126); ANION GAP 8 (5-19); ASPARTATE AMINO TRANSFERASE 8 U/L (17-59); BILIRUBIN,DIRECT 0.4 mg/dL (0.0-0.4); BILIRUBIN,TOTAL 0.6 mg/dL (0.2-1.3); BLOOD UREA NITROGEN 19 mg/dL (7-20); CALCIUM 9.6 mg/dL (8.4-10.2); CARBON DIOXIDE 30 mmol/L (22-30); CHLORIDE 99 mmol/L (98-107); CREATININE RESULT 1.55 mg/dL (0.52-1.25); GLUCOSE 85 mg/dL (75-110); POTASSIUM 5.2 mmol/L (3.6-5.0); SODIUM 136.9 mmol/L (137-145); TOTAL PROTEIN 5.6 g/dL (6.3-8.2)
[2017-07-14] MEDS: BUSPIRONE HCL 10 MG TABLET PO SCH ×2 (09:16→22:22)
[2017-07-14] MEDS: POTASSIUM CHLORIDE 20 MEQ/15 ML UDCUP PO SCH ×2 (11:07→22:22)
[2017-07-14] MEDS: MEMANTINE HCL 10 MG TABLET PO SCH (11:07)
[2017-07-14] MEDS: BENZTROPINE MESYLATE 1 MG TABLET PO SCH ×2 (11:07→20:27)
[2017-07-14] MEDS: ENOXAPARIN SODIUM INJ 40 MG/0.4 ML DISP.SYRIN SUBCUT SCH (11:07)
[2017-07-14] MEDS: DIVALPROEX SODIUM 125 MG CAP.SPRINK PO SCH ×2 (11:07→22:22)
--- NOTE | 2017-07-14 19:18 | PDOC PROGRESS REPORT ---
Subjective Progress Note for:: 07/14/17 Subjective:: There is a follow-up visit for dementia and acute renal failure. No acute events overnight. The patient really is not answering many questions today. He allows me to pull the blankets down from over his head. Reason For Visit: AMS PULMONARY LESION PPD POSITIVE Physical Exam Vital Signs: Temp Pulse Resp BP Pulse Ox 97.5 F 79 16 94/60 L 97 07/14/17 15:47 07/14/17 15:47 07/14/17 15:47 07/14/17 15:47 07/14/17 15:47 Intake & Output 07/13/17 07/14/17 07/15/17 06:59 06:59 06:59 Intake Total 590 1323 5 Output Total 600 300 Balance -10 1023 5 Weight 42 kg 42 kg GENERAL: Is a well-developed, thin -[place]aur[place] male resting in his bed in no acute distress with his head covered with the blankets. HEART: Regular rate and rhythm. No murmurs, rubs or gallops. LUNGS: Clear anteriorly bilaterally with equal rise and fall of the chest. ABDOMEN: Soft, nontender, nondistended with normoactive bowel sounds EXTREMETIES: No clubbing, cyanosis or edema. 2+ peripheral pulses bilaterally. NEURO: Awake, alert. Skin: Socks are in place over blisters. Results Laboratory Results: 07/14/17 04:53 07/14/17 04:53 07/14/17 07/14/17 04:53 04:53 WBC 7.3 RBC 3.74 L Hgb 12.0 L Hct 34.7 L MCV 93 MCH 32.1 MCHC 34.5 RDW 12.7 Plt Count 196 Sodium 136.9 L Potassium 5.2 H Chloride 99 Carbon Dioxide 30 Anion Gap 8 BUN 19 Creatinine 1.55 H Est GFR ( Amer) 55 L Est GFR (Non-Af Amer) 45 L Glucose 85 Calcium 9.6 Total Bilirubin 0.6 AST 8 L ALT 23 Alkaline Phosphatase 51 Total Protein 5.6 L Albumin 3.0 L Impressions: Head MRI 06/18/17 00:00 IMPRESSION: Motion artifact. No acute changes EVIDENCE OF ACUTE STROKE: NO. Chest X-Ray 06/22/17 00:00 IMPRESSION: Stable chest, findings as above. Assessment & Plan - Diagnosis (1) Altered mental state Qualifiers: Altered mental status type: unspecified Qualified Code(s): R41.82 - Altered mental status, unspecified Is this a current diagnosis for this admission?: Yes Plan: The patient may have some underlying dementia and underlying schizophrenia. He seems to now be currently at baseline. (2) Dehydration Is this a current diagnosis for this admission?: Yes Plan: Initially resolved. The patient is not drinking much water. Will begin IV fluids. (3) Dementia Qualifiers: Dementia type: unspecified type Dementia behavioral disturbance: with behavioral disturbance Qualified Code(s): F03.91 - Unspecified dementia with behavioral disturbance Is this a current diagnosis for this admission?: Yes Plan: Patient has a reported history of underlying dementia. This is coupled with a history of underlying schizophrenia. At this point it is difficult to know just how much the patient can understand. He is not oriented and speaks very little. The patient will likely need halfway facility for at least the next 30 days to see if he will get stronger and be able to assist in caring for himself. Continue Namenda. (4) Renal failure (ARF), acute on chronic Is this a current diagnosis for this admission?: Yes Plan: Initially resolved. Patient has decreased p.o. water. Begin gentle fluids for the next 24 hours. (5) Schizo NOS, subchrn/exacer Is this a current diagnosis for this admission?: Yes Plan: Continue current medications. (6) Stridor Is this a current diagnosis for this admission?: Yes Plan: Resolved. (7) Dysphasia Is this a current diagnosis for this admission?: Yes Plan: The patient has gurgling sounds while he is trying to eat. Continue ground meats as per speech recommendations. He continues to hold saliva in his mouth. He spits out white frothy saliva throughout the day. (8) Hypernatremia Is this a current diagnosis for this admission?: Yes Plan: Resolved with fluids. (9) Hypokalemia Is this a current diagnosis for this admission?: Yes - Time Time Spent with patient: Less than 15 minutes Within: when bed available
[2017-07-14] MEDS: NORMAL SALINE 1000 ML 1,000 ML IV PRN (20:28)
[2017-07-15] MEDS: METOCLOPRAMIDE HCL INJ/PF 10 MG/2 ML SDV IV SCH ×3 (06:23→20:31)
[2017-07-15] MEDS: MEMANTINE HCL 10 MG TABLET PO SCH (09:06)
[2017-07-15] MEDS: BENZTROPINE MESYLATE 1 MG TABLET PO SCH ×2 (09:07→20:31)
[2017-07-15] MEDS: DIVALPROEX SODIUM 125 MG CAP.SPRINK PO SCH (09:07)
[2017-07-15] MEDS: BUSPIRONE HCL 10 MG TABLET PO SCH (09:07)
[2017-07-15] MEDS: ENOXAPARIN SODIUM INJ 40 MG/0.4 ML DISP.SYRIN SUBCUT SCH (09:08)
[2017-07-15] MEDS: POTASSIUM CHLORIDE 20 MEQ/15 ML UDCUP PO SCH (09:08)
--- NOTE | 2017-07-15 15:22 | PDOC PROGRESS REPORT ---
Subjective Progress Note for:: 07/15/17 Subjective:: There is a follow-up visit for dementia and acute renal failure. No acute events overnight. The patient really is not answering many questions today. He does not have his head covered with blankets today. Reason For Visit: AMS PULMONARY LESION PPD POSITIVE Physical Exam Vital Signs: Temp Pulse Resp BP Pulse Ox 98.0 F 62 16 93/52 L 100 07/15/17 12:00 07/15/17 12:00 07/15/17 12:00 07/15/17 12:00 07/15/17 12:00 Intake & Output 07/14/17 07/15/17 07/16/17 06:59 06:59 06:59 Intake Total 1323 417 Output Total 300 Balance 1023 417 Weight 42 kg 42 kg GENERAL: Is a well-developed, thin -Mauritian male resting in his bed in no acute distress with his head covered with the blankets. HEART: Regular rate and rhythm. No murmurs, rubs or gallops. LUNGS: Clear anteriorly bilaterally with equal rise and fall of the chest. ABDOMEN: Soft, nontender, nondistended with normoactive bowel sounds EXTREMETIES: No clubbing, cyanosis or edema. 2+ peripheral pulses bilaterally. NEURO: Awake, alert. Skin: Socks are in place over blisters. Results Laboratory Results: 07/14/17 04:53 07/14/17 04:53 Impressions: Head MRI 06/18/17 00:00 IMPRESSION: Motion artifact. No acute changes EVIDENCE OF ACUTE STROKE: NO. Chest X-Ray 06/22/17 00:00 IMPRESSION: Stable chest, findings as above. Assessment & Plan - Diagnosis (1) Altered mental state Qualifiers: Altered mental status type: unspecified Qualified Code(s): R41.82 - Altered mental status, unspecified Is this a current diagnosis for this admission?: Yes Plan: The patient may have some underlying dementia and underlying schizophrenia. He seems to now be currently at baseline. (2) Dehydration Is this a current diagnosis for this admission?: Yes Plan: Initially resolved. The patient is not drinking much water. Started IV fluids yesterday. Chem-7 is pending. (3) Dementia Qualifiers: Dementia type: unspecified type Dementia behavioral disturbance: with behavioral disturbance Qualified Code(s): F03.91 - Unspecified dementia with behavioral disturbance Is this a current diagnosis for this admission?: Yes Plan: Patient has a reported history of underlying dementia. This is coupled with a history of underlying schizophrenia. At this point it is difficult to know just how much the patient can understand. He is not oriented and speaks very little. The patient will likely need fdc facility for at least the next 30 days to see if he will get stronger and be able to assist in caring for himself. Continue Namenda. (4) Renal failure (ARF), acute on chronic Is this a current diagnosis for this admission?: Yes Plan: Initially resolved. Patient has decreased p.o. water. Chem-7 is pending.. (5) Schizo NOS, subchrn/exacer Is this a current diagnosis for this admission?: Yes Plan: Continue current medications. (6) Stridor Is this a current diagnosis for this admission?: Yes Plan: Resolved. (7) Dysphasia Is this a current diagnosis for this admission?: Yes Plan: The patient has gurgling sounds while he is trying to eat. Continue ground meats as per speech recommendations. He continues to hold saliva in his mouth. He spits out white frothy saliva throughout the day. (8) Hypernatremia Is this a current diagnosis for this admission?: Yes Plan: Resolved with fluids. (9) Hypokalemia Is this a current diagnosis for this admission?: Yes Plan: Replace p.o. - Time Time Spent with patient: Less than 15 minutes
[2017-07-15] MEDS: NORMAL SALINE 1000 ML 1,000 ML IV PRN (15:33)
[2017-07-15 15:49] LABS: HEMATOCRIT 33.1 % (37.9-51.0); HEMOGLOBIN 11.1 g/dL (13.5-17.0); HGB HCT DIFFERENCE 0.2; MEAN CORPUSCULAR HEMOGLOBIN 31.3 pg (27.0-33.4); MEAN CORPUSCULAR HGB CONC 33.6 g/dL (32.0-36.0); MEAN CORPUSCULAR VOLUME 93 fl (80-97); RED BLOOD COUNT 3.55 10^6/uL (4.35-5.55); WHITE BLOOD COUNT 3.4 10^3/uL (4.0-10.5)
[2017-07-15 15:58] LABS: ANION GAP 13 (5-19); BLOOD UREA NITROGEN 21 mg/dL (7-20); CALCIUM 9.7 mg/dL (8.4-10.2); CARBON DIOXIDE 28 mmol/L (22-30); CHLORIDE 101 mmol/L (98-107); CREATININE RESULT 1.46 mg/dL (0.52-1.25); GLUCOSE 73 mg/dL (75-110); MAGNESIUM 1.7 mg/dL (1.6-2.3); POTASSIUM 4.5 mmol/L (3.6-5.0); SODIUM 141.9 mmol/L (137-145)
[2017-07-15 16:10] LABS: BASOPHILS % (MANUAL) 0 % (0-2); EOSINOPHILS % (MANUAL) 1 % (0-6); LYMPHOCYTES % (MANUAL) 37 % (13-45); TOTAL CELLS COUNTED 100
[2017-07-15 16:11] LABS: SCHISTOCYTES SLIGHT
[2017-07-16] MEDS: METOCLOPRAMIDE HCL INJ/PF 10 MG/2 ML SDV IV SCH ×4 (00:03→17:01)
[2017-07-16] MEDS: BUSPIRONE HCL 10 MG TABLET PO SCH ×2 (00:04→09:07)
[2017-07-16] MEDS: POTASSIUM CHLORIDE 20 MEQ/15 ML UDCUP PO SCH ×2 (00:04→09:04)
[2017-07-16] MEDS: DIVALPROEX SODIUM 125 MG CAP.SPRINK PO SCH ×2 (00:04→09:09)
[2017-07-16] MEDS: ENOXAPARIN SODIUM INJ 40 MG/0.4 ML DISP.SYRIN SUBCUT SCH (09:04)
[2017-07-16] MEDS: MEMANTINE HCL 10 MG TABLET PO SCH (09:04)
[2017-07-16] MEDS: BENZTROPINE MESYLATE 1 MG TABLET PO SCH ×2 (09:04→17:04)
--- NOTE | 2017-07-16 12:29 | PDOC TRANSFER SUMMARY ---
General - Admit/Disc Date/PCP Admission Date/Primary Care Provider: 06/16/17 11:14 Discharge Date: 07/16/17 - Discharge Diagnosis (1) Abnormal chest x-ray Is this a current diagnosis for this admission?: Yes Summary: Patient was initially concerned to have tuberculosis. He had a goal test that was negative. Sputum cultures have been negative. 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 Is this a current diagnosis for this admission?: Yes (4) Schizophrenia Is this a current diagnosis for this admission?: Yes (5) Hyponatremia Is this a current diagnosis for this admission?: Yes (6) Renal failure (ARF), acute on chronic Is this a current diagnosis for this admission?: Yes (7) Stridor Is this a current diagnosis for this admission?: Yes - Additional Information Resuscitation Status: Full Code Discharge Diet: Cardiac, Other (Comments) - ground meats Discharge Activity: Activity As Tolerated Home Medications: Benztropine Mesylate [Cogentin 1 mg Tablet] 1 mg PO BID tablet 07/16/17 Buspirone HCl [Buspar 10 mg Tablet] 5 mg PO QAM tablet 07/16/17 Buspirone HCl [Buspar 10 mg Tablet] 10 mg PO QHS tablet 07/16/17 Divalproex Sodium [Depakote Sprinkle 125 mg Capsule] 500 mg PO Q12 cap.sprink 07/16/17 Haloperidol [Haldol 5 mg Tablet] 5 mg PO Q8HP PRN tablet 07/16/17 Lactulose [Cephulac Syrup 20 gm/30 ml Udcup] 20 gm PO Q6HP PRN udc 07/16/17 Memantine HCl [Namenda 10 mg Tablet] 5 mg PO DAILY tablet 07/16/17 Nicotine [Nicoderm 7 mg/24 Hr Transdermal Patch] 1 each TD DAILYP PRN patch.td24 07/16/17 Potassium Chloride [Kaon-Cl 20 Meq/15 ml Udcup] 20 meq PO Q12 udc 07/16/17 History of Present Illness Admission Date/PCP: 06/16/17 11:14 History of Present Illness: SUZANNE PECK is a 66 year old male with history of dementia and schizophrenia. Patient with recurrent presentation to the ED after he was brought in by the family for medications noncompliance. Family reported that patient has been combative and not doing what he was supposed to do. Patient confused at times. On the afternoon of current presentation to the ED, 06/11/17, they found him sitting in the bathtub with the water and electric heater. Patient has been in the ED since 06/11/17 waiting for placement. He apparently had PPD done and this was positive. Chest x-ray on 06/15/17 revealed 10 mm in the anterior clear space laterally. Otherwise no acute infiltrate. Urinalysis from 07/10/[address] scan of the head was negative. Patient does continue to refuse to take meds. He has been referred to the hospitalist service for admission to isolation for workup for TB and adjust patient medications for altered mental status. On exam patient, he barely answers questions. He is a poor historian. History obtained from review of medical records and discussion with ED physician. He reports intermittent cough. Hospital Course Hospital Course: 66-year-old gentleman who presented with altered mental status. The patient had been living in [place] for the last 20 years and was essentially lost his family. He returned and had problems with his mental status. Patient has been diagnosed with dementia and probable schizophrenia. He had been brought to the emergency room by the family and they were searching for placement. The patient however had a PPD done and it was positive and there was a lesion on the chest x-ray. Patient was admitted for further workup. He has had sputum that have been negative for AFB so far. The patient also had the TB Gold test that was negative. He has been removed from isolation. He initially was essentially nonverbal. Since that time he has been put on as needed Haldol as well as Depakote. His mental status has improved well enough that he is able to feed himself and he however is unable to care for himself. Because of this skilled nurse facility has been contacted and they agreed to accept him. He has had problems with intermittent nausea and vomiting for which he is received Reglan as needed. He has responded to that. Patient also because of his Haldol has developed some extrapyramidal movements but has responded to Cogentin. The patient will be sent to [facility] today for physical therapy and rehab. Physical Exam Vital Signs: Temp Pulse Resp BP Pulse Ox 97.4 F 55 L 14 96/63 L 100 07/16/17 00:00 07/16/17 00:00 07/16/17 00:00 07/16/17 00:00 07/16/17 00:00 Intake & Output 07/15/17 07/16/17 07/17/17 06:59 06:59 06:59 Intake Total 417 1852 Balance 417 1852 Weight 42 kg 42 kg General appearance: PRESENT: no acute distress Eye exam: PRESENT: conjunctiva pink. ABSENT: scleral icterus Mouth exam: PRESENT: moist, tongue midline Neck exam: ABSENT: JVD Respiratory exam: PRESENT: clear to auscultation veronica. ABSENT: rales, rhonchi, wheezes Cardiovascular exam: PRESENT: RRR. ABSENT: diastolic murmur, rubs, systolic murmur GI/Abdominal exam: PRESENT: normal bowel sounds, soft. ABSENT: distended, guarding, mass, organolmegaly, rebound, tenderness Extremities exam: ABSENT: calf tenderness, clubbing, pedal edema Neurological exam: PRESENT: oriented to person. ABSENT: oriented to place, oriented to time, oriented to situation Psychiatric exam: PRESENT: flat affect Skin exam: PRESENT: dry, intact, warm. ABSENT: cyanosis, rash Results Laboratory Results: 07/15/17 15:29 07/15/17 15:29 07/15/17 07/15/17 15:29 15:29 WBC 3.4 L RBC 3.55 L Hgb 11.1 L Hct 33.1 L MCV 93 MCH 31.3 MCHC 33.6 RDW 13.0 Plt Count 205 Seg Neutrophils % Not Reportable Lymphocytes % Not Reportable Monocytes % Not Reportable Eosinophils % Not Reportable Basophils % Not Reportable Absolute Neutrophils Not Reportable Absolute Lymphocytes Not Reportable Absolute Monocytes Not Reportable Absolute Eosinophils Not Reportable Absolute Basophils Not Reportable Sodium 141.9 Potassium 4.5 Chloride 101 Carbon Dioxide 28 Anion Gap 13 BUN 21 H Creatinine 1.46 H Est GFR ( Amer) 59 L Est GFR (Non-Af Amer) 49 L Glucose 73 L Calcium 9.7 Magnesium 1.7 Impressions: Head MRI 06/18/17 00:00 IMPRESSION: Motion artifact. No acute changes EVIDENCE OF ACUTE STROKE: NO. Chest X-Ray 06/22/17 00:00 IMPRESSION: Stable chest, findings as above. Transfer Plan - Disposition Transfer Plan: We will transfer to [facility] today. Follow-up with primary care in 2 weeks. - Time Spent with Patient Time spent with patient: Greater than 30 Minutes Qualifiers PATEINT BEING DISCHARGED WITH ANY OF THE FOLLOWING DIAGNOSIS?: No Plan Discharge Plan: We will transfer to [facility]. Follow-up with primary care in 2 weeks. Time Spent: Greater than 30 Minutes
[2017-07-16] MEDS ORDERED: NA PHOS,M-B/NA PHOS,DI-BA (ADULT) 133 ML ENEMA PR ONE (16:00)
[2017-07-16 16:51] VITALS: BP 101/52
== END 2017-07-16 18:58 | DRG 885 ==
LOC: ER 19:54 → UNDOADMIN 06-15 19:00 → EH 06-15 19:00 → UNDOADMIN 06-16 11:11 → EH 06-16 11:11 → ER 06-16 11:25 → EH 06-16 11:26 → ER 06-16 11:26 → 3S 06-16 13:15 → 4N 07-10 18:58
PROVIDERS: ADMIT Pediatrics; ATTEND Pediatrics
DX: F20.9 Schizophrenia, unspecified (principal); F03.91 Unspecified dementia, unspecified severity, with behavioral disturbance; E87.1 Hypo-osmolality and hyponatremia; N17.9 Acute kidney failure, unspecified; E87.0 Hyperosmolality and hypernatremia; R76.11 Nonspecific reaction to tuberculin skin test without active tuberculosis; E86.0 Dehydration; R41.82 Altered mental status, unspecified; N18.9 Chronic kidney disease, unspecified; R06.1 Stridor; R47.02 Dysphasia; E87.6 Hypokalemia; R91.8 Other nonspecific abnormal finding of lung field; F17.210 Nicotine dependence, cigarettes, uncomplicated; Z91.19 Patient's noncompliance with other medical treatment and regimen; Z75.1 Person awaiting admission to adequate facility elsewhere
CPT/HCPCS: 36415; 70551; 71020; 80048; 80053; 82140; 82607; 82747; 83735; 84443; 85025; 85027; 86480; 87015; 87070; 87116; 87205; 87206; 94640; 94667; J1630; J1650; J2405; J2765; J2920; J3490; J7030; J7060; J7512

== ENCOUNTER 2017-08-14 13:23 | Emergency (ER) | payer MEDICAID, OTHER ==
[2017-08-14] MEDS ORDERED: NORMAL SALINE 1000 ML 1,000 ML IV ONE (14:31)
--- NOTE | 2017-08-14 14:36 | ER Document Report ---
ED General - General Stated Complaint: VOMITING, NAUSEA Time Seen by Provider: 08/14/17 14:01 Notes: 67-year-old with dementia history of renal failure and hyponatremia presents with weakness vomiting and diarrhea. The patient cannot give a history and this was gleaned for prehospital records. TRAVEL OUTSIDE OF THE [place] IN LAST 30 DAYS: No - Related Data Allergies/Adverse Reactions: No Known Allergies Allergy (Unverified 06/09/17 04:49) Past Medical History - Social History Smoking Status: Current Every Day Smoker Family History: Reviewed & Not Pertinent Renal/ Medical History: Denies: Hx Peritoneal Dialysis Psychiatric Medical History: Reports: Hx Schizophrenia Review of Systems - Review of Systems Notes: REVIEW OF SYSTEMS Obtain secondary to dementia PHYSICAL EXAMINATION General: Ill-appearing week no acute distress, well-nourished Head: Atraumatic, normocephalic ENT: Mouth normal, oropharynx m dry t, no exudates or tonsillar enlargement Eyes: Conjunctiva normal, pupils equal, lids normal Neck: No JVD, supple, no guarding CVS: Normal rate, regular rhythm, no murmurs Resp: No resp distress, equal and normal breath sounds bilaterally GI: Nondistended, soft, no tenderness to palpation, no rebound or guarding Ext: Form is or edema, wasted extremities Back: No CVA or midline TTP Skin: No rash, warm Lymphatic: No lymphadeopathy noted Neuro: Awake, alert. Symmetric face. Mostly nonverbal. Course - Re-evaluation Re-evalutation: 08/14/17 14:36 Ill-appearing 67-year-old male with dementia presents with vomiting. He looks quite dry. He is probably off his neurologic baseline. Will get a full septic workup, hydrate empirically and reassess. 08/14/17 15:57 Patient's lab evaluation shows dehydration including mild hypernatremia and very mild hyperkalemia. He is given IV fluids. His other evaluation is negative. I spoke with Fuad from psych who is seen this patient before. He suffers from chronic dementia and schizophrenia. He appears to be at his baseline based on my evaluation of his records and he was also seen by psych who agrees. He is stable for discharge back to facility after hydration. I have discussed with the patient there likely diagnosis, aftercare plan, follow- up plans and my usual and customary return precautions. They verbalized understanding of this. - Laboratory Result Diagrams: 08/14/17 14:29 08/14/17 14:29 Laboratory results interpreted by me: 08/14/17 08/14/17 08/14/17 14:29 14:29 14:29 RBC 3.88 L Hgb 12.4 L Hct 37.7 L RDW 15.1 H Sodium 145.4 H Potassium 5.4 H Carbon Dioxide 31 H BUN 26 H Creatinine 1.38 H Est GFR (Non-Af Amer) 52 L Calcium 10.3 H Urine Ketones TRACE H Urine Urobilinogen 2.0 H Urine Ascorbic Acid 40 H Discharge - Discharge Clinical Impression: Dehydration Condition: Good Disposition: HOME, SELF-CARE Instructions: Dehydration ([facility])
[2017-08-14 14:58] LABS: APPEARANCE,URINE CLEAR; BILIRUBIN,URINE NEGATIVE (NEGATIVE); COLOR,URINE YELLOW; GLUCOSE, URINE NEGATIVE (NEGATIVE); KETONES,URINE TRACE mg/dL (NEGATIVE); LEUKOCYTE ESTERASE,URINE NEGATIVE (NEGATIVE); NITRITE,URINE NEGATIVE (NEGATIVE); PROTEIN,URINE NEGATIVE (NEGATIVE); URINE SPECIFIC GRAVITY 1.025
[2017-08-14 15:15] LABS: ANION GAP 12 (5-19); BLOOD UREA NITROGEN 26 mg/dL (7-20); CALCIUM 10.3 mg/dL (8.4-10.2); CARBON DIOXIDE 31 mmol/L (22-30); CHLORIDE 102 mmol/L (98-107); GLUCOSE 92 mg/dL (75-110); POTASSIUM 5.4 mmol/L (3.6-5.0); SODIUM 145.4 mmol/L (137-145)
[2017-08-14 15:18] LABS: ABSOLUTE EOSINOPHILS # (AUTO) 0.1 10^3/uL (0.0-0.6); ABSOLUTE MONOCYTES (AUTO) 0.7 10^3/uL (0.1-1.4); ABSOLUTE NEUT (AUTO) 5.5 10^3/uL (1.7-8.2); BASOPHILS % (AUTO) 0.5 % (0-2); EOSINOPHILS % (AUTO) 1.5 % (0-6); HEMATOCRIT 37.7 % (37.9-51.0); HEMOGLOBIN 12.4 g/dL (13.5-17.0); LYMPHOCYTES % (AUTO) 13.9 % (13-45); MEAN CORPUSCULAR HGB CONC 32.8 g/dL (32.0-36.0); MONOCYTES % (AUTO) 9.6 % (3-13); PLATELET COUNT 207 10^3/uL (150-450); RED BLOOD COUNT 3.88 10^6/uL (4.35-5.55); RED CELL DISTRIBUTION WIDTH 15.1 % (11.5-14.0); SEGMENTED NEUTROPHILS % (AUTO) 74.5 % (42-78); TOTAL CELLS COUNTED % (AUTO) 100 %; WHITE BLOOD COUNT 7.3 10^3/uL (4.0-10.5)
--- NOTE | 2017-08-14 15:18 | RADIOLOGY REPORT (SQ) ---
EXAM DESCRIPTION: CHEST SINGLE VIEW COMPLETED DATE/TIME: 08/14/2017 3:00 pm REASON FOR STUDY: ams COMPARISON: June 2017 EXAM PARAMETERS: NUMBER OF VIEWS: One view. TECHNIQUE: Single frontal radiographic view of the chest acquired. RADIATION DOSE: NA LIMITATIONS: None. FINDINGS: LUNGS AND PLEURA: No opacities, masses or pneumothorax. No pleural effusion. MEDIASTINUM AND HILAR STRUCTURES: No masses. Contour normal. HEART AND VASCULAR STRUCTURES: Heart normal in size. Normal vasculature. BONES: No acute findings. HARDWARE: None in the chest. OTHER: No other significant finding. IMPRESSION: No significant interval change. No acute findings. Other findings as noted above TECHNICAL DOCUMENTATION: JOB ID: [id number] [employer]- All Rights Reserved
[2017-08-14 15:22] LABS: MEAN CORPUSCULAR VOLUME 97 fl (80-97)
[2017-08-14 17:54] VITALS: BP 106/72
== END 2017-08-14 17:53 | disposition home or self-care (01) ==
LOC: ER 13:23
DX: E86.0 Dehydration (principal); N19 Unspecified kidney failure; E87.1 Hypo-osmolality and hyponatremia; R11.2 Nausea with vomiting, unspecified; F03.90 Unspecified dementia, unspecified severity, without behavioral disturbance, psychotic disturbance, mood disturbance, and anxiety; F17.200 Nicotine dependence, unspecified, uncomplicated
CPT/HCPCS: 99284; 96360; 51701; 36415; 85025; 80048; 81001; 83605; 71045; J7030

== ENCOUNTER 2017-08-18 15:10 | Emergency (ER) | payer MEDICAID ==
[2017-08-19 03:17] LABS: ABSOLUTE BASOPHILS # (AUTO) 0.1 10^3/uL (0.0-0.2); ABSOLUTE EOSINOPHILS # (AUTO) 0.1 10^3/uL (0.0-0.6); ABSOLUTE LYMPHOCYTES (AUTO) 1.1 10^3/uL (0.5-4.7); ABSOLUTE MONOCYTES (AUTO) 0.8 10^3/uL (0.1-1.4); ABSOLUTE NEUT (AUTO) 4.4 10^3/uL (1.7-8.2); BASOPHILS % (AUTO) 0.8 % (0-2); EOSINOPHILS % (AUTO) 1.6 % (0-6); HEMATOCRIT 34.7 % (37.9-51.0); HEMOGLOBIN 11.5 g/dL (13.5-17.0); LYMPHOCYTES % (AUTO) 16.8 % (13-45); MEAN CORPUSCULAR HEMOGLOBIN 31.9 pg (27.0-33.4); MEAN CORPUSCULAR HGB CONC 33.1 g/dL (32.0-36.0); MEAN CORPUSCULAR VOLUME 97 fl (80-97); MONOCYTES % (AUTO) 12.6 % (3-13); PLATELET COUNT 246 10^3/uL (150-450); RED CELL DISTRIBUTION WIDTH 14.6 % (11.5-14.0); SEGMENTED NEUTROPHILS % (AUTO) 68.2 % (42-78); TOTAL CELLS COUNTED % (AUTO) 100 %; WHITE BLOOD COUNT 6.4 10^3/uL (4.0-10.5)
[2017-08-19 11:22] LABS: BLOOD UREA NITROGEN 21 mg/dL (7-20); CARBON DIOXIDE 31 mmol/L (22-30); CHLORIDE 103 mmol/L (98-107); GLUCOSE 90 mg/dL (75-110)
[2017-08-19 11:23] LABS: ALANINE AMINOTRANSFERASE 12 U/L (21-72); ALBUMIN 3.8 g/dL (3.5-5.0); ALKALINE PHOSPHATASE 66 U/L (38-126); ANION GAP 10 (5-19); ASPARTATE AMINO TRANSFERASE 10 U/L (17-59); BILIRUBIN,DIRECT 0.2 mg/dL (0.0-0.4); BILIRUBIN,TOTAL 0.4 mg/dL (0.2-1.3); LIPASE 24.2 U/L (23-300); TOTAL PROTEIN 6.3 g/dL (6.3-8.2)
== END 2017-08-18 19:38 | disposition home or self-care (01) ==
LOC: ER 15:10
DX: E86.0 Dehydration (principal); R11.0 Nausea; F03.90 Unspecified dementia, unspecified severity, without behavioral disturbance, psychotic disturbance, mood disturbance, and anxiety
CPT/HCPCS: 36415; 80053; 83690; 85025; 96360; 99285

== ENCOUNTER 2017-08-18 21:35 | Emergency (ER) | payer MEDICAID ==
[2017-08-18] MEDS ORDERED: ONDANSETRON 4 MG TAB.RAPDIS PO ONE (22:27)
--- NOTE | 2017-08-18 22:29 | ER Document Report ---
ED GI/ - General Chief Complaint: Nausea/Vomiting Stated Complaint: NAUSEA,VOMITING Time Seen by Provider: 08/18/17 22:19 Notes: Patient is a 67-year-old male that comes by EMS to the emergency department for chief complaint of vomiting. He has a history of schizophrenia, dementia, hyponatremia, and chronic kidney disease (according to records). Reportedly patient was evaluated here, sent back to the assisted, he ate a peanut butter and jelly sandwich and vomited and was then sent back to the emergency department. Patient is unable to provide me with any meaningful history although he does not complain of nausea, abdominal pain, chest pain, shortness of breath. He states he feels fine right now. TRAVEL OUTSIDE OF THE [place] IN LAST 30 DAYS: No - Related Data Allergies/Adverse Reactions: No Known Allergies Allergy (Unverified 06/09/17 04:49) Past Medical History - General Information source: Patient - Social History Smoking Status: Never Smoker Frequency of alcohol use: None Drug Abuse: None Lives with: Family Family History: Reviewed & Not Pertinent Patient has suicidal ideation: No Patient has homicidal ideation: No Renal/ Medical History: Denies: Hx Peritoneal Dialysis Psychiatric Medical History: Reports: Hx Schizophrenia Review of Systems - Review of Systems Constitutional: No symptoms reported EENT: No symptoms reported Cardiovascular: No symptoms reported Respiratory: No symptoms reported Gastrointestinal: See HPI Genitourinary: No symptoms reported Male Genitourinary: No symptoms reported Musculoskeletal: No symptoms reported Skin: No symptoms reported Hematologic/Lymphatic: No symptoms reported Neurological/Psychological: No symptoms reported Physical Exam - Vital signs Vitals: Temp Pulse Resp BP Pulse Ox 97.4 F 101 H 20 112/70 100 08/18/17 21:46 08/18/17 21:46 08/18/17 21:46 08/18/17 21:46 08/18/17 21:46 Interpretation: Normal - General General appearance: Appears well In distress: None - Patient sitting up in bed, alert, appears calm and relaxed - HEENT Head: Normocephalic, Atraumatic Eyes: Normal Pupils: PERRL - Respiratory Respiratory status: No respiratory distress Chest status: Nontender Breath sounds: Normal. No: Decreased air movement, Wheezing Chest palpation: Normal - Cardiovascular Rhythm: Regular. No: Tachycardia Heart sounds: Normal auscultation, S1 appreciated, S2 appreciated Murmur: No - Abdominal Inspection: Normal Distension: No distension Bowel sounds: Normal Tenderness: Nontender. No: Tender - Soft unremarkable abdomen - Back Back: Normal, Nontender. No: Tender - Extremities General upper extremity: Normal inspection, Nontender, Normal ROM, Normal strength General lower extremity: Normal inspection, Nontender, Normal ROM, Normal strength - Neurological Neuro grossly intact: Yes Cognition: Normal Orientation: AAOx4 William Coma Scale Eye Opening: Spontaneous William Coma Scale Verbal: Oriented Bowden Coma Scale Motor: Obeys Commands Bowden Coma Scale Total: 15 Speech: Normal Motor strength normal: LUE, RUE, LLE, RLE Sensory: Normal - Psychological Associated symptoms: Other - Slightly flat affect, he does make eye contact, he does not converse clearly, he is cooperative and does follow directions - Skin Skin Temperature: Warm Skin Moisture: Dry Skin Color: Normal Course - Re-evaluation Re-evalutation: Patient has a soft abdomen. He is well-appearing. His mental status appears to be consistent with previous documented presentations at this facility and with his schizophrenia and dementia. He is pleasant. He follows directions. Patient was observed to be spitting into an emesis bag on several occasions. Unsure if this is a comfort behavior for him but he does not appear to be in any distress. He did not vomit, he did not have any retching. He has no complaints when I reevaluate him. Acute abdominal series shows constipation but no evidence of obstruction. CBC, chemistry, urinalysis are all unremarkable. Patient will be discharged with stool softener, nausea medication, recommendations, return precautions. I did discuss with patient, he states he has no additional complaints and he does not need anything. - Vital Signs Vital signs: Temp Pulse Resp BP Pulse Ox 97.4 F 101 H 20 112/70 100 08/18/17 21:46 08/18/17 21:46 08/18/17 21:46 08/18/17 21:46 08/18/17 21:46 - Laboratory Result Diagrams: 08/18/17 22:40 08/18/17 22:40 Laboratory results interpreted by me: 08/18/17 08/18/17 08/19/17 22:40 22:40 01:31 RBC 3.24 L Hgb 10.4 L Hct 31.2 L RDW 14.4 H Chloride 109 H Glucose 166 H AST 9 L ALT 13 L Total Protein 5.4 L Albumin 3.1 L Urine Ketones TRACE H Urine Ascorbic Acid 40 H Discharge - Discharge Clinical Impression: Vomiting Qualifiers: Vomiting type: unspecified Vomiting Intractability: non-intractable Nausea presence: unspecified Qualified Code(s): R11.10 - Vomiting, unspecified Condition: Stable Disposition: HOME, SELF-CARE Additional Instructions: Workup, imaging, and evaluation shows some constipation but no concerning abnormalities. Tolerating food/fluids without difficulty. Stay hydrated especially because of noted spitting behavior in the emergency department. Give Zofran if needed for nausea, give stool softener at least for the next several days, follow-up with his provider for additional management within the next several days. Return for any concerning symptoms including uncontrolled vomiting, abdominal pain, fever, or any other concerning symptoms. Prescriptions: Docusate Sodium [Colace 100 mg Capsule] 100 mg PO ASDIR PRN #30 capsule PRN Reason: Ondansetron [Zofran Odt 4 mg Tablet] 1 - 2 tab PO Q4H PRN #15 tab.rapdis PRN Reason: For Nausea/Vomiting
[2017-08-18 23:08] LABS: ALANINE AMINOTRANSFERASE 13 U/L (21-72); ALBUMIN 3.1 g/dL (3.5-5.0); ALKALINE PHOSPHATASE 51 U/L (38-126); ANION GAP 7 (5-19); ASPARTATE AMINO TRANSFERASE 9 U/L (17-59); BILIRUBIN,DIRECT 0.2 mg/dL (0.0-0.4); BILIRUBIN,TOTAL 0.2 mg/dL (0.2-1.3); BLOOD UREA NITROGEN 18 mg/dL (7-20); CALCIUM 8.9 mg/dL (8.4-10.2); CARBON DIOXIDE 27 mmol/L (22-30); CHLORIDE 109 mmol/L (98-107); GLUCOSE 166 mg/dL (75-110); LIPASE 43.2 U/L (23-300); POTASSIUM 4.3 mmol/L (3.6-5.0); SODIUM 143.4 mmol/L (137-145); TOTAL PROTEIN 5.4 g/dL (6.3-8.2)
[2017-08-18 23:35] LABS: ABSOLUTE EOSINOPHILS # (AUTO) 0.1 10^3/uL (0.0-0.6); ABSOLUTE LYMPHOCYTES (AUTO) 0.8 10^3/uL (0.5-4.7); ABSOLUTE MONOCYTES (AUTO) 0.6 10^3/uL (0.1-1.4); ABSOLUTE NEUT (AUTO) 3.9 10^3/uL (1.7-8.2); BASOPHILS % (AUTO) 0.7 % (0-2); HEMATOCRIT 31.2 % (37.9-51.0); HEMOGLOBIN 10.4 g/dL (13.5-17.0); LYMPHOCYTES % (AUTO) 15.4 % (13-45); MEAN CORPUSCULAR HEMOGLOBIN 32.2 pg (27.0-33.4); MEAN CORPUSCULAR HGB CONC 33.5 g/dL (32.0-36.0); MEAN CORPUSCULAR VOLUME 96 fl (80-97); MONOCYTES % (AUTO) 10.9 % (3-13); PLATELET COUNT 214 10^3/uL (150-450); RED BLOOD COUNT 3.24 10^6/uL (4.35-5.55); RED CELL DISTRIBUTION WIDTH 14.4 % (11.5-14.0); TOTAL CELLS COUNTED % (AUTO) 100 %; WHITE BLOOD COUNT 5.4 10^3/uL (4.0-10.5)
--- NOTE | 2017-08-19 00:04 | RADIOLOGY REPORT (SQ) ---
EXAM DESCRIPTION: ABDOMEN 2 VIEWS CLINICAL HISTORY: 67 years, Male, vomiting COMPARISON: None. NUMBER OF VIEWS: 2 FINDINGS: Paucity of bowel gas, moderate colonic stool retention, 0.7 cm possible left nephrolithiasis or enterolith, no dilated bowel, and mild deformity of bilateral femoral necks. IMPRESSION: No acute findings. Possible 0.7 cm left nephrolithiasis. 2011 [employer]- All Rights Reserved
[2017-08-19 01:54] LABS: APPEARANCE,URINE CLEAR; BILIRUBIN,URINE NEGATIVE (NEGATIVE); COLOR,URINE YELLOW; GLUCOSE, URINE NEGATIVE (NEGATIVE); KETONES,URINE TRACE mg/dL (NEGATIVE); LEUKOCYTE ESTERASE,URINE NEGATIVE (NEGATIVE); NITRITE,URINE NEGATIVE (NEGATIVE); PROTEIN,URINE NEGATIVE (NEGATIVE); URINE SPECIFIC GRAVITY 1.019; UROBILINOGEN,URINE NEGATIVE mg/dL (<2.0)
[2017-08-19 08:05] VITALS: BP 110/74
--- NOTE | 2017-08-19 08:38 | RADIOLOGY REPORT (SQ) ---
EXAM DESCRIPTION: CHEST SINGLE VIEW COMPLETED DATE/TIME: 08/18/2017 10:42 pm REASON FOR STUDY: COUGH COMPARISON: 08/14/2017 EXAM PARAMETERS: NUMBER OF VIEWS: One view. TECHNIQUE: Single frontal radiographic view of the chest acquired. RADIATION DOSE: NA LIMITATIONS: None. FINDINGS: LUNGS AND PLEURA: Patchy airspace densities are now identified in the right mid lung field laterally most consistent with a patchy pneumonic infiltrate. The remaining lung perez are clear. No pleural effusions are identified. MEDIASTINUM AND HILAR STRUCTURES: No masses. Contour normal. HEART AND VASCULAR STRUCTURES: Heart normal in size. Normal vasculature. BONES: No acute findings. HARDWARE: None in the chest. OTHER: No other significant finding. IMPRESSION: Patchy airspace densities in the right mid lung field laterally most consistent with a p atchy pneumonic infiltrate. Remaining lung perez are clear TECHNICAL DOCUMENTATION: JOB ID: [id number] [employer]- All Rights Reserved
== END 2017-08-19 08:05 | disposition home or self-care (01) ==
LOC: ER 21:35
DX: R11.10 Vomiting, unspecified (principal); F20.9 Schizophrenia, unspecified; F03.90 Unspecified dementia, unspecified severity, without behavioral disturbance, psychotic disturbance, mood disturbance, and anxiety
CPT/HCPCS: 99285; 36415; 83690; 85025; 80053; 81001; 74019; 71045; S0119